=== PATIENT | female | born 1950 | race Caucasian/White ===

== ENCOUNTER 2018-10-21 17:29 | Inpatient (IN) | payer MEDICARE ==
[~2018-10-21 17:29] MED LIST: ENOXAPARIN SODIUM SQ SCH
--- NOTE | 2018-10-21 18:11 | ERPHSYRPT ---
- History of Present Illness Source: patient, EMS Exam Limitations: no limitations Patient Subjective Stated Complaint: pt here for increase sob since september, was seen recently for this and was placed on meds and is to get blood work done Triage Nursing Assessment: pt alert, resp labored, skin w/d/p. chest with rhonci and wheezes, was givne solumedrol and a resp treatment in ambulance as well as zofran Timing/Duration: other (since September) Activities at Onset: none Severity of Dyspnea-Max: severe Severity of Dyspnea-Current: severe Possible Cause: occasional episodes, smoke exposure Modifying Factors: Improves With: albuterol inhaler, albuterol nebulizer Associated Symptoms: cough, wheezing Hx Tetanus, Diphtheria Vaccination/Date Given: No Hx Influenza Vaccination/Date Given: No Hx Pneumococcal Vaccination/Date Given: No Immunizations Up to Date: Yes <BERKLEY HODGSON - Last Filed: 10/21/18 19:12> <CARLITA TOLEDO - Last Filed: 10/21/18 21:18> - History of Present Illness Time Seen by Provider: 10/21/18 18:02 Physician History: The patient is a 68-year-old female with her daughter brought in by ambulance from home where she has experienced worsening shortness of breath since September. She saw her primary medical doctor last week and was given an albuterol nebulizer machine with albuterol nebs, Medrol dosepak, and Augmentin. The patient has not taking very much of this steroid because she doesn't like the way it makes her feel. She denies fever or chills. She hasn't slept well in several nights. EMS treated her in route with Solu-Medrol and a breathing treatment plus Zofran. Her O2 saturation at home when EMS arrived was 80%. She is now feeling better breathing using O2 2 L nasal cannula. She is unsure of her past medical history and thinks she might have COPD. She has smoked for many years and continues to smoke. (BERKLEY HODGSON) Allergies/Adverse Reactions: acetaminophen [From Darvocet-N] Allergy (Intermediate, Verified 10/21/18 17:36) Rash propoxyphene napsylate [From Darvocet-N] Allergy (Intermediate, Verified 17:36) Rash Home Medications: Albuterol Sulfate Mdi [Proair Hfa MDI] 2 puff QID 10/21/18 [History] Amox Tr/Potass Clav. 875 mg [Augmentin 875-125 Tablet] 1 tab BID 10/21/18 [History] Clonazepam 0.5 mg [Klonopin 0.5 MG] 0.5 mg TID 10/21/18 [History] Ipratropium/Albuterol Sulfate [Iprat-Albut 0.5-3(2.5) mg/3 ml] 1 neb QID [History] methylPREDNISolone [Methylprednisolone] 4 mg DAILY 10/21/18 [History] - Review of Systems Constitutional: No Fever, No Chills Eyes: No Symptoms Ears, Nose, & Throat: No Symptoms Respiratory: Dyspnea, Dyspnea on Exertion (GERONIMO) Cardiac: No Chest Pain, No Edema, No Syncope Abdominal/Gastrointestinal: No Abdominal Pain, No Nausea, No Vomiting, No Diarrhea Genitourinary Symptoms: No Dysuria Musculoskeletal: No Back Pain, No Neck Pain Skin: No Rash Neurological: No Dizziness, No Focal Weakness, No Sensory Changes Psychological: No Symptoms Endocrine: No Symptoms Hematologic/Lymphatic: No Symptoms Immunological/Allergic: No Symptoms All Other Systems: Reviewed and Negative <BERKLEY HODGSON - Last Filed: 10/21/18 19:12> - Past Medical History Pertinent Past Medical History: Yes Respiratory History: COPD Other Medical History: BEING TESTED FOR RA - Past Surgical History Past Surgical History: Yes Musculoskeletal: Orthopedic Surgery Female Surgical History: Section - Social History Smoking Status: Current every day smoker How long have you smoked: YRS Exposure to second hand smoke: Yes Drug Use: none Patient Lives Alone: No - Female History Hx Last Menstrual Period: post Hx Now: No <BERKLEY HODGSON - Last Filed: 10/21/18 19:12> - Physical Exam General Appearance: mild distress, thin Eye Exam: PERRL/EOMI Ears, Nose, Throat Exam: hearing grossly normal Neck Exam: normal inspection, supple Respiratory Exam: diminished breath sounds, wheezing Cardiovascular/Chest Exam: normal heart sounds, regular rate/rhythm Abdominal/Gastrointestinal Exam: soft, No tenderness, No distention, No mass Rectal Exam: not done Extremity Exam: non-tender, normal range of motion, normal inspection, no calf tenderness, no pedal edema Neurologic Exam: alert, oriented x 3, cooperative, med specialist II-XII nml as tested, sensation nml, No motor deficits Skin Exam: normal color, warm, No dry SpO2 Interpretation: normal SpO2: 92 Oxygen Delivery: Room Air <BERKLEY HODGSON - Last Filed: 10/21/18 19:12> - Nursing Vital Signs Nursing Vital Signs: Initial Vital Signs Temperature 97.8 F 10/21/18 17:29 Pulse Rate 92 H 10/21/18 17:29 Respiratory Rate 32 H 10/21/18 17:29 Blood Pressure 136/70 10/21/18 17:29 O2 Sat by Pulse Oximetry 97 10/21/18 17:29 Pain Scale Pain Intensity 0 - Radiology Exams Chest X-ray Interpretation: Interpreted by me, Other (blurring of sulcus on lateral view. severe COPD) <BERKLEY HODGSON - Last Filed: 10/21/18 19:12> - Course Nursing assessment & vital signs reviewed: Yes EKG Interpreted by Me: RATE (86 bpm), Sinus Rhythm, Right Mccamey Deviation, Other (EKG: Sinus rhythm, 86 bpm, right axis deviation, T-wave inversions in lead 1, avl, inadequate lead 2, no old EKG for comparison) - CT Exams Chest CT Interpretation: Tele-radiologist Report (CT chest without contrast: Impression no acute findings) <CARLITA TOLEDO - Last Filed: 10/21/18 21:18> Ordered Tests: Active Orders 24 hr Category Date Time Status Analytical Sciences Director STAT Care 10/21/18 18:18 Active EKG-ER Only STAT Care 10/21/18 18:17 Active EKG-ER Only STAT Care 10/21/18 19:53 Active IV Insertion STAT Care 10/21/18 18:17 Active Oxygen-ED Only Nasal Cannula 2 lpm Care 10/21/18 18:17 Active Pulse Oximetry (ED) STAT Care 10/21/18 18:17 Active CHEST 2 VIEWS (PA AND LAT) Stat Exams 10/21/18 18:17 Taken CHEST WITHOUT CONTRAST [CT] Stat Exams 10/21/18 19:11 Taken ARTERIAL BLOOD GASES Stat Lab 10/21/18 18:40 Completed BLOOD CULTURE Stat Lab 10/21/18 18:46 Received CBC W DIFF Stat Lab 10/21/18 18:45 Completed CMP Stat Lab 10/21/18 18:45 Completed D-DIMER QUANTITATION Stat Lab 10/21/18 18:45 Completed Lactic Acid Stat Lab 10/21/18 18:40 Completed NT PRO BNP Stat Lab 10/21/18 18:45 Completed PROTIME WITH INR Stat Lab 10/21/18 18:45 Completed TROPONIN Q3H Lab 10/21/18 18:45 Completed TROPONIN Q3H Lab 10/21/18 21:30 Ordered TROPONIN Q3H Lab 10/22/18 00:30 Ordered TROPONIN Q3H Lab 10/22/18 03:30 Ordered TROPONIN Q3H Lab 10/22/18 06:30 Ordered Peak Expiratory Flow Rate DAILY RT 10/21/18 18:56 Active Respiratory Nebulizer STAT RT 10/21/18 18:19 Completed Respiratory Therapy Assessment DAILY RT 10/21/18 18:55 Active Medication Summary Discontinued Medications Generic Name Dose Route Start Last Admin Trade Name Freq PRN Reason Stop Dose Admin Albuterol/Ipratropium 3 ml 10/21/18 18:17 10/21/18 18:41 Duoneb 0.5-3 Mg/3 Ml Neb IH 10/21/18 18:18 3 ml STAT ONE Administration Albuterol/Ipratropium Confirm 10/21/18 18:25 Duoneb 0.5-3 Mg/3 Ml Neb Administered 10/21/18 18:26 Dose 3 ml IH .STK-MED ONE Aspirin 324 mg 10/21/18 20:02 10/21/18 20:10 Baby Aspirin 81 Mg Chew PO 10/21/18 20:03 324 mg STAT ONE Administration Aspirin Confirm 10/21/18 20:02 Baby Aspirin 81 Mg Chew Administered 10/21/18 20:03 Dose 324 mg .ROUTE .STK-MED ONE Aspirin Confirm 10/21/18 20:09 Baby Aspirin 81 Mg Chew Administered 10/21/18 20:10 Dose 324 mg .ROUTE .STK-MED ONE Lab/Rad Data: Laboratory Result Diagrams 10/21/18 18:45 10/21/18 18:45 Laboratory Results 10/21/18 10/21/18 10/21/18 Range/Units 18:45 18:45 18:45 WBC (4.0-10.5) K/mm3 RBC (4.1-5.4) M/mm3 Hgb (12.0-16.0) gm/dl Hct (35-47) % MCV (78-100) fl MCH (26-32) pg MCHC (32-36) g/dl RDW (11.5-14.0) % Plt Count (150-450) K/mm3 MPV (6-9.5) fl Gran % (36.0-66.0) % Eos # (Auto) (0-0.5) Absolute Lymphs (auto) (1.0-4.6) Absolute Monos (auto) (0.0-1.3) Lymphocytes % (24.0-44.0) % Monocytes % (0.0-12.0) % Eosinophils % (0.00-5.0) % Basophils % (0.0-0.4) % Absolute Granulocytes (1.4-6.9) Basophils # (0-0.4) PT 13.3 H (9.95-12.35) SECONDS INR 1.14 (0.8-3.0) D-Dimer 250 (215-500) ng/mL Puncture Site pCO2 (35-45) mmHg pO2 (75-100) mmHg Base Excess (-2.0-2.0) O2 Saturation (94-100) g/dF ABG pH (7.35-7.45) ABG HCO3 (22-28) ABG O2 Sat (Measured) (95-100) % Sukumar Test A-a Gradient a/A Ratio Hemoglobin Carboxyhemoglobin (0.0-6.9) % THgb Methemoglobin (1.4-1.5) % Potassium (3.5-5.1) Temperature C POC O2 Flow Rate % Sodium (137-145) mmol/L Chloride (98-107) mmol/L Carbon Dioxide (22-30) mmol/L Anion Gap (5-15) MEQ/L BUN (7-17) mg/dL Creatinine (0.52-1.04) mg/dL Estimated GFR ML/MIN Glucose (74-106) mg/dL Lactic Acid (0.4-2.0) Calcium (8.4-10.2) mg/dL Total Bilirubin (0.2-1.3) mg/dL AST (14-36) U/L ALT (0-35) U/L Alkaline Phosphatase (38-126) U/L Troponin I 0.039 H* (0.000-0.034) ng/mL NT-Pro-B Natriuret Pep (0-900) pg/mL Serum Total Protein (6.3-8.2) g/dL Albumin (3.5-5.0) g/dL Influenza Type A Ag NEGATIVE (NEGATIVE) Influenza Type B Ag NEGATIVE (NEGATIVE) RSV (PCR) NEGATIVE (Negative) 10/21/18 10/21/18 10/21/18 Range/Units 18:45 18:45 18:40 WBC 6.0 (4.0-10.5) K/mm3 RBC 3.78 L (4.1-5.4) M/mm3 Hgb 12.8 (12.0-16.0) gm/dl Hct 38.7 (35-47) % MCV 102.4 H (78-100) fl MCH 33.8 H (26-32) pg MCHC 33.1 (32-36) g/dl RDW 11.9 (11.5-14.0) % Plt Count 207 (150-450) K/mm3 MPV 9.2 (6-9.5) fl Gran % 90.0 H (36.0-66.0) % Eos # (Auto) 0.01 (0-0.5) Absolute Lymphs (auto) 0.40 L (1.0-4.6) Absolute Monos (auto) 0.19 (0.0-1.3) Lymphocytes % 6.6 L (24.0-44.0) % Monocytes % 3.2 (0.0-12.0) % Eosinophils % 0.2 (0.00-5.0) % Basophils % 0.0 (0.0-0.4) % Absolute Granulocytes 5.43 (1.4-6.9) Basophils # 0 (0-0.4) PT (9.95-12.35) SECONDS INR (0.8-3.0) D-Dimer (215-500) ng/mL Puncture Site RIGHT BRACHIAL pCO2 52 H (35-45) mmHg pO2 94 (75-100) mmHg Base Excess 2.9 H (-2.0-2.0) O2 Saturation 93.0 L (94-100) g/dF ABG pH 7.36 (7.35-7.45) ABG HCO3 29.4 H* (22-28) ABG O2 Sat (Measured) 98.7 (95-100) % Sukumar Test NOT APPLICABLE A-a Gradient 41 a/A Ratio 0.70 Hemoglobin 13.4 Carboxyhemoglobin 4.3 (0.0-6.9) % THgb Methemoglobin 1.5 (1.4-1.5) % Potassium 3.6 3.5 (3.5-5.1) Temperature 37.0 C POC O2 Flow Rate 28 % Sodium 127 L (137-145) mmol/L Chloride 87 L (98-107) mmol/L Carbon Dioxide 32 H (22-30) mmol/L Anion Gap 12.5 (5-15) MEQ/L BUN 13 (7-17) mg/dL Creatinine 0.30 L (0.52-1.04) mg/dL Estimated GFR > 60.0 ML/MIN Glucose 120 H (74-106) mg/dL Lactic Acid 1.3 (0.4-2.0) Calcium 8.6 (8.4-10.2) mg/dL Total Bilirubin 0.50 (0.2-1.3) mg/dL AST 74 H (14-36) U/L ALT 60 H (0-35) U/L Alkaline Phosphatase 81 (38-126) U/L Troponin I (0.000-0.034) ng/mL NT-Pro-B Natriuret Pep 166 (0-900) pg/mL Serum Total Protein 7.1 (6.3-8.2) g/dL Albumin 4.4 (3.5-5.0) g/dL Influenza Type A Ag (NEGATIVE) Influenza Type B Ag (NEGATIVE) RSV (PCR) (Negative) <BERKLEY HODGSON - Last Filed: 10/21/18 19:12> - Progress Air Movement: fair <CARLITA TOLEDO - Last Filed: 10/21/18 21:18> - Progress Progress Note: 10/21/18 19:12 pt care discussed and care transferred to Dr Toledo at 19:00. (BERKLEY HODGSON) 10/21/18 20:02 This is a 68-year-old white female with history of COPD who is being tested for rheumatoid arthritis. She is initially seen by Dr. Hodgson. Patient with complaint of shortness of breath since September she has no fevers she is not having any chest pain. Patient does have a history of tobacco use. Past medical history includes COPD, being tested for rheumatoid arthritis Past surgical history includes orthopedic surgery and Social history positive for tobacco Physical examination vitals temperature 90.7 a pulse 92 respirations 32 blood pressure 136/70 sats 97% Head atraumatic normocephalic eyes PERRLA EOMI fundi unremarkable ears TMs ye intact bilaterally nose is clear throat is clear. Lungs diminished breath sounds bilaterally. Heart regular rate and rhythm without murmur. Abdomen soft nontender nondistended positive bowel sounds. Extremities full range of motion pulse equal symmetrical 2 over 4. Neuro cranial nerves II through XII are intact DTRs symmetrical 2 over 4 [place] Coma Scale is 15. Chest x-ray hyperinflation no acute infiltrates EKG patient with T wave inversion in lead 1 and aVL questionable reliability of lead 2 Sinus rhythm 86 bpm right axis deviation T wave inversions 1 in aVL as noted above. No old EKG for comparison. Labs CBC white blood cell 6.0 hemoglobin 12.8 hematocrit 38.7 platelets 207 D-dimer 250 ABGs pH 7.36 PCO2 52 PO2 94 bicarbonate 29 O2 sats 98 Chemistry sodium 127 potassium 3.6 chloride 87 bicarbonate 32 BUN 13 creatinine 0.3 glucose 120 Lactate 1.3 Troponin elevated at 0.039 BNP 166 Patient has already received Solu-Medrol en route patient has had DuoNeb treatment and Zofran prior to arrival Dr. Hodgson has ordered CT of the patient's chest. Will go ahead and order aspirin 324 mg orally in view of elevated troponin. Will repeat patient's EKG. Await CT results patient does not have chest pain 10/21/18 20:08 Repeat EKG time October 21, 2018 at 2003 Sinus rhythm 81 bpm T wave inversion in lead aVL No acute ST or T wave changes noted, normal axis. 10/21/18 21:14 CT chest no acute changes I've discussed patient' case with Dr Lewis, Will place patient on observation, telemetry, Will continue IV Solumedroland DuoNeb treatments Will continue serial troponins. (CARLITA TOLEDO) <BERKLEY HODGSON - Last Filed: 10/21/18 19:12> - Departure Time of Disposition: 21:17 Departure Disposition: Observation Critical Care Time: No <CARLITA TOLEDO - Last Filed: 10/21/18 21:18> - Departure Clinical Impression: Shortness of breath, increased troponin COPD (chronic obstructive pulmonary disease) Qualifiers: COPD type: unspecified COPD Qualified Code(s): J44.9 - Chronic obstructive pulmonary disease, unspecified Condition: Fair Referrals: HELDER LEWIS [Primary Care Provider] - Instructions: Chronic Obstructive Pulmonary Disease
[2018-10-21] MEDS ORDERED: DUONEB 0.5-3 MG/3 ml Neb IH ONE ×2 (18:17→18:25)
[2018-10-21 18:47] LABS: A-aADO2 41; ABG HEMOGLOBIN 13.4; ABG POTASSIUM 3.5 (3.5-5.1); ABG SITE RIGHT BRACHIAL; ARTERIAL BLD GAS O2 SATURATION 98.7 % (95-100); ARTERIAL BLOOD GAS BASE EXCESS 2.9 (-2.0-2.0); ARTERIAL BLOOD GAS FIO2 28 %; ARTERIAL BLOOD GAS PCO2 52 mmHg (35-45); ARTERIAL BLOOD GAS PO2 94 mmHg (75-100); ARTERIAL BLOOD GAS pH 7.36 (7.35-7.45); CARBOXYHEMOGLOBIN 4.3 % THgb (0.0-6.9); HCO3- 29.4 (22-28); Lactic Acid 1.3 (0.4-2.0); Methhemoglobin 1.5 % (1.4-1.5)
[2018-10-21 18:49] LABS: Basophil (Absolute #) 0 (0-0.4); Eosinophil % 0.2 % (0.00-5.0); Eosinophil (Absolute #) 0.01 (0-0.5); Hematocrit 38.7 % (35-47); Hemoglobin 12.8 gm/dl (12.0-16.0); Lymphocytes % 6.6 % (24.0-44.0); Mean Cell Volume 102.4 fl (78-100); Mean Corpuscular Hemoglobin 33.8 pg (26-32); Mean Corpuscular Hgb Concent. 33.1 g/dl (32-36); Mean Platelet Volume 9.2 fl (6-9.5); Monocyte (Absolute #) 0.19 (0.0-1.3); Monocytes % 3.2 % (0.0-12.0); Platelet Count 207 K/mm3 (150-450); Red Blood Count 3.78 M/mm3 (4.1-5.4); Red Cell Distribution Width 11.9 % (11.5-14.0)
[2018-10-21 19:07] LABS: INR 1.14 (0.8-3.0); PROTIME 13.3 SECONDS (9.95-12.35)
[2018-10-21 19:09] LABS: ALBUMIN 4.4 g/dL (3.5-5.0); ALKALINE PHOSPHATASE 81 U/L (38-126); ANION GAP 12.5 MEQ/L (5-15); BLOOD UREA NITROGEN 13 mg/dL (7-17); CHLORIDE 87 mmol/L (98-107); Calcium 8.6 mg/dL (8.4-10.2); Carbon Dioxide 32 mmol/L (22-30); Glucose 120 mg/dL (74-106); NT PRO BNP 166 pg/mL (0-900); Potassium 3.6 mmol/L (3.5-5.1); SGOT/AST 74 U/L (14-36); SGPT/ALT 60 U/L (0-35); SODIUM 127 mmol/L (137-145); Total Protein 7.1 g/dL (6.3-8.2)
[2018-10-21 19:23] LABS: INFLUENZA A NEGATIVE (NEGATIVE); INFLUENZA B NEGATIVE (NEGATIVE); RESPIRATORY SYNCTIAL VIRUS NEGATIVE (Negative)
[2018-10-21] MEDS ORDERED: BABY ASPIRIN 81 MG CHEW PO ONE (20:02)
[2018-10-21] MEDS ORDERED: BABY ASPIRIN 81 MG CHEW ONE ×2 (20:02→20:09)
[2018-10-21] MEDS ORDERED: ROCEPHIN 1 Gm-D5w 50 ml Bag** 1 G/50 ML IVPB IV STA (21:18)
[2018-10-21] MEDS ORDERED: ROCEPHIN 1 Gm-D5w 50 ml Bag** 1 G/50 ML IVPB IV ONE (21:21)
[2018-10-21] MEDS ORDERED: DUONEB 0.5-3 MG/3 ml Neb IH PRN (21:55)
[2018-10-21] MEDS ORDERED: Ecotrin 325 MG PO SCH (22:00)
[2018-10-21] MEDS: Sodium Chloride 0.9% 1000 ML 1,000 ML IV SCH (23:04)
[2018-10-21] MEDS: solu-MEDROL 125 MG IV SCH (23:05)
[2018-10-21] MEDS ORDERED: Xopenex 1.25 MG/0.5 ML UD NEBULE IH PRN (23:35)
[2018-10-21] MEDS ORDERED: Sodium Chloride 3 ML UD NEBULES IH PRN (23:43)
[2018-10-21] MEDS ORDERED: Nicoderm CQ 21 MG TOP SCH (23:45)
[2018-10-21] MEDS ORDERED: Klonopin 0.5 MG PO PRN (23:53)
[2018-10-22] MEDS ORDERED: ENOXAPARIN SODIUM SQ ONE (00:47)
[2018-10-22] MEDS: TYLENOL 325 MG PO PRN ×2 (00:52→10:14)
[2018-10-22 05:38] LABS: Basophil (Absolute #) 0 (0-0.4); Eosinophil (Absolute #) 0 (0-0.5); Granulocytes % 88.3 % (36.0-66.0); Hematocrit 37.3 % (35-47); Hemoglobin 12.1 gm/dl (12.0-16.0); Lymphocyte (Absolute #) 0.32 (1.0-4.6); Lymphocytes % 9.4 % (24.0-44.0); Mean Cell Volume 102.8 fl (78-100); Mean Corpuscular Hemoglobin 33.3 pg (26-32); Mean Corpuscular Hgb Concent. 32.4 g/dl (32-36); Mean Platelet Volume 9.2 fl (6-9.5); Monocyte (Absolute #) 0.08 (0.0-1.3); Monocytes % 2.3 % (0.0-12.0); Platelet Count 219 K/mm3 (150-450); Red Blood Count 3.63 M/mm3 (4.1-5.4); White Blood Count 3.4 K/mm3 (4.0-10.5)
[2018-10-22] MEDS: solu-MEDROL 125 MG IV SCH (05:42)
[2018-10-22 05:58] LABS: ALBUMIN 3.6 g/dL (3.5-5.0); ALKALINE PHOSPHATASE 68 U/L (38-126); ANION GAP 9.5 MEQ/L (5-15); BLOOD UREA NITROGEN 11 mg/dL (7-17); CHLORIDE 98 mmol/L (98-107); Calcium 8.7 mg/dL (8.4-10.2); Carbon Dioxide 32 mmol/L (22-30); Creatinine 1 0.31 mg/dL (0.52-1.04); Glucose 131 mg/dL (74-106); Potassium 4.4 mmol/L (3.5-5.1); SGOT/AST 60 U/L (14-36); SGPT/ALT 60 U/L (0-35); SODIUM 135 mmol/L (137-145); Total Protein 5.9 g/dL (6.3-8.2)
[2018-10-22 07:17] LABS: Slide Review 1 YES
--- NOTE | 2018-10-22 08:40 | XRAY ---
Indication: Cough and short of breath one month. Multiple contiguous axial images obtained through the chest without contrast as ordered. Comparison: None Lungs hyperinflated with moderate pulmonary emphysema. Right apical and lesser degree bibasilar pleural parenchymal fibrosis/scarring. No suspicious pulmonary mass, infiltrate, or effusion. Heart is not enlarged. Aorta mildly arteriosclerotic without aneurysmal dilatation. Mediastinal and bilateral hilar calcified nodes. No pathologic mediastinal lymphadenopathy. Bony thorax intact. Limited upper abdomen unremarkable. Impression: 1. Pulmonary emphysema with scattered fibrosis/scarring and evidence for old granulomatous disease. 2. Remaining CT chest without contrast exam is negative. Comment: Preliminary interpretation was made by [facility]. No discrepancy. CTDI 6.06
--- NOTE | 2018-10-22 08:40 | XRAY ---
Indication: Short of breath. Comparison: None PA/lateral chest demonstrates COPD and right hilar calcified nodes. No focal infiltrate, consolidation, or large effusion. Heart is not enlarged. Bony thorax intact with mild osteopenia. Impression: Nonacute chest with COPD and evidence for old granulomatous disease.
[2018-10-22] MEDS ORDERED: Zithromax 500 MG/ 250 ML NaCl Premix 500 MG/250 ML IVPB IV SCH ×2 (10:00→22:00)
[2018-10-22] MEDS ORDERED: NON-FORMULARY ITEM (Albuterol Sulfate Mdi*** 2 PUFF) IH SCH (10:00)
[2018-10-22] MEDS ORDERED: Mucinex 600MG ER Tabs PO SCH (10:00)
[2018-10-22] MEDS: Sodium Chloride 0.9% 1000 ML 1,000 ML IV SCH (10:01)
[2018-10-22] MEDS: Klonopin 0.5 MG PO SCH ×2 (10:01→16:14)
[2018-10-22] MEDS: ENOXAPARIN SODIUM SQ SCH ×2 (10:01→10:10)
[2018-10-22] MEDS: PROVENTIL COMMON CANISTER IH SCH ×2 (10:46→15:30)
[2018-10-22] MEDS ORDERED: solu-MEDROL 125 MG IV SCH (12:00)
--- NOTE | 2018-10-22 13:15 | PCM.HP ---
History of Present Illness - Chief Complaint Chief Complaint: HYPOXIA, DYSPNEA, EXAC COPD, FAILED OUTPATIENT History of Present Illness: is a 68 year old female.patient here for increase sob since September , was seen recently for this and was placed on meds and is to get blood work done - Review of Systems Constitutional: No Fever, No Chills Eyes: No Symptoms Ears, Nose, & Throat: No Symptoms Respiratory: Cough, Orthopnea, Short Of Breath, Wheezing Cardiac: No Chest Pain, No Edema, No Syncope Abdominal/Gastrointestinal: No Abdominal Pain, No Nausea, No Vomiting, No Diarrhea Genitourinary Symptoms: No Dysuria Musculoskeletal: No Back Pain, No Neck Pain Skin: No Rash Neurological: No Dizziness, No Focal Weakness, No Sensory Changes Psychological: No Symptoms Endocrine: No Symptoms Hematologic/Lymphatic: No Symptoms Immunological/Allergic: No Symptoms Medications & Allergies Home Medications: Home Medication List Albuterol Sulfate Mdi [Proair Hfa MDI] 2 puff QID 10/21/18 [History Confirmed 10/21/18] Amox Tr/Potass Clav. 875 mg [Augmentin 875-125 Tablet] 1 tab BID 10/21/18 [History Confirmed 10/21/18] Clonazepam 0.5 mg [Klonopin 0.5 MG] 0.5 mg TID 10/21/18 [History Confirmed 10/21/18] Ipratropium/Albuterol Sulfate [Iprat-Albut 0.5-3(2.5) mg/3 ml] 1 neb QID [History Confirmed 10/21/18] methylPREDNISolone [Methylprednisolone] 4 mg DAILY 10/21/18 [History Confirmed 10/21/18] Allergies/Adverse Reactions: Allergies Allergy/AdvReac Type Severity Reaction Status Date / Time acetaminophen Allergy Intermediate Rash Verified 10/21/18 17:36 [From Darvocet-N] propoxyphene napsylate Allergy Intermediate Rash Verified 10/21/18 17:36 [From Darvocet-N] - Past Medical History Past Medical History: Yes Neurological History: No Pertinent History ENT History: No Pertinent History Cardiac History: No Pertinent History Respiratory History: COPD Endocrine Medical History: No Pertinent History Musculoskelatal History: No Pertinent History GI Medical History: No Pertinent History History: No Pertinent History Pyscho-Social History: No Pertinent History Reproductive Disorders: No Pertinent History Comment: BEING TESTED FOR RA - Female History Hx Last Menstrual Period: post Are you now?: No - Past Surgical History Past Surgical History: Yes Neuro Surgical History: No Pertinent History Cardiac History: No Pertinent History Respiratory Surgery: No Pertinent History GI Surgical History: No Pertinent History Genitourinary Surgical Hx: No Pertinent History Musculskeletal Surgical Hx: Orthopedic Surgery Female Surgical History: Section Other Surgical History: rt arm - Social History Smoking Status: Current every day smoker How long have you smoked: YRS Exposure to second hand smoke: Yes Alcohol: None Drug Use: none - Physical Exam Vital Signs: Vital Signs - 24 hr Temp Pulse Resp BP Pulse Ox 10/22/18 11:57 98.2 F 86 18 118/65 95 10/22/18 10:54 84 18 94 L 10/22/18 10:00 18 10/22/18 08:27 87 16 92 L 10/22/18 07:55 98.4 F 87 18 97/54 98 10/22/18 07:37 93 L 10/22/18 06:00 18 10/22/18 04:00 98.2 F 93 H 18 108/59 98 10/22/18 02:00 18 10/22/18 00:00 97.8 F 92 H 22 122/59 91 L 10/21/18 23:28 92 H 22 91 L 10/21/18 22:46 80 20 93 L 10/21/18 22:39 95 H 22 122/59 94 L 10/21/18 22:00 20 10/21/18 20:40 87 110/70 98 10/21/18 19:40 93 H 20 147/79 99 10/21/18 19:12 92 L 10/21/18 18:50 97 H 22 126/71 99 10/21/18 18:41 86 18 90 L 10/21/18 18:35 86 18 97/57 94 L 10/21/18 18:26 98 10/21/18 17:30 32 H 92 L 10/21/18 17:29 97.8 F 92 H 32 H 136/70 97 Oxygen-Last 24 hours O2 Percentage 2 Liters = 28% O2 Percentage 2 Liters = 28% O2 Percentage 2 Liters = 28% O2 Percentage 2 Liters = 28% O2 Percentage 2 Liters = 28% O2 Percentage 2 Liters = 28% General Appearance: no apparent distress, alert Neurologic Exam: alert, oriented x 3, cooperative, normal mood/affect, nml cerebellar function, nml station & gait, sensation nml, No motor deficits Eye Exam: PERRL/EOMI, eyes nml inspection Ears, Nose, Throat Exam: normal ENT inspection, TMs normal, pharynx normal, moist mucous membranes Neck Exam: normal inspection, non-tender, supple, full range of motion Respiratory Exam: normal breath sounds, lungs clear, No respiratory distress Cardiovascular Exam: regular rate/rhythm, normal heart sounds, normal peripheral pulses Gastrointestinal/Abdomen Exam: soft, normal bowel sounds, No tenderness, No mass Back Exam: normal inspection, normal range of motion, No CVA tenderness, No vertebral tenderness Extremity Exam: normal inspection, normal range of motion, pelvis stable Skin Exam: normal color, warm, dry, No rash Lymphatic Exam: No adenopathy Results - Labs Lab/Micro Results: Lab Results-Last 24 Hours 10/21/18 10/21/18 10/21/18 Range/Units 18:40 18:45 18:45 WBC 6.0 (4.0-10.5) K/mm3 RBC 3.78 L (4.1-5.4) M/mm3 Hgb 12.8 (12.0-16.0) gm/dl Hct 38.7 (35-47) % MCV 102.4 H (78-100) fl MCH 33.8 H (26-32) pg MCHC 33.1 (32-36) g/dl RDW 11.9 (11.5-14.0) % Plt Count 207 (150-450) K/mm3 MPV 9.2 (6-9.5) fl Gran % 90.0 H (36.0-66.0) % Eos # (Auto) 0.01 (0-0.5) Absolute Lymphs (auto) 0.40 L (1.0-4.6) Absolute Monos (auto) 0.19 (0.0-1.3) Lymphocytes % 6.6 L (24.0-44.0) % Monocytes % 3.2 (0.0-12.0) % Eosinophils % 0.2 (0.00-5.0) % Basophils % 0.0 (0.0-0.4) % Absolute Granulocytes 5.43 (1.4-6.9) Basophils # 0 (0-0.4) PT (9.95-12.35) SECONDS INR (0.8-3.0) D-Dimer (215-500) ng/mL Puncture Site RIGHT BRACHIAL pCO2 52 H (35-45) mmHg pO2 94 (75-100) mmHg Base Excess 2.9 H (-2.0-2.0) O2 Saturation 93.0 L (94-100) g/dF ABG pH 7.36 (7.35-7.45) ABG HCO3 29.4 H* (22-28) ABG O2 Sat (Measured) 98.7 (95-100) % Sukumar Test NOT APPLICABLE A-a Gradient 41 a/A Ratio 0.70 Hemoglobin 13.4 Carboxyhemoglobin 4.3 (0.0-6.9) % THgb Methemoglobin 1.5 (1.4-1.5) % Potassium 3.5 3.6 (3.5-5.1) Temperature 37.0 C POC O2 Flow Rate 28 % Sodium 127 L (137-145) mmol/L Chloride 87 L (98-107) mmol/L Carbon Dioxide 32 H (22-30) mmol/L Anion Gap 12.5 (5-15) MEQ/L BUN 13 (7-17) mg/dL Creatinine 0.30 L (0.52-1.04) mg/dL Estimated GFR > 60.0 ML/MIN Glucose 120 H (74-106) mg/dL Lactic Acid 1.3 (0.4-2.0) Calcium 8.6 (8.4-10.2) mg/dL Total Bilirubin 0.50 (0.2-1.3) mg/dL AST 74 H (14-36) U/L ALT 60 H (0-35) U/L Alkaline Phosphatase 81 (38-126) U/L Troponin I (0.000-0.034) ng/mL NT-Pro-B Natriuret Pep 166 (0-900) pg/mL Serum Total Protein 7.1 (6.3-8.2) g/dL Albumin 4.4 (3.5-5.0) g/dL Influenza Type A Ag (NEGATIVE) Influenza Type B Ag (NEGATIVE) RSV (PCR) (Negative) Slides for Path Review 10/21/18 10/21/18 10/21/18 Range/Units 18:45 18:45 18:45 WBC (4.0-10.5) K/mm3 RBC (4.1-5.4) M/mm3 Hgb (12.0-16.0) gm/dl Hct (35-47) % MCV (78-100) fl MCH (26-32) pg MCHC (32-36) g/dl RDW (11.5-14.0) % Plt Count (150-450) K/mm3 MPV (6-9.5) fl Gran % (36.0-66.0) % Eos # (Auto) (0-0.5) Absolute Lymphs (auto) (1.0-4.6) Absolute Monos (auto) (0.0-1.3) Lymphocytes % (24.0-44.0) % Monocytes % (0.0-12.0) % Eosinophils % (0.00-5.0) % Basophils % (0.0-0.4) % Absolute Granulocytes (1.4-6.9) Basophils # (0-0.4) PT 13.3 H (9.95-12.35) SECONDS INR 1.14 (0.8-3.0) D-Dimer 250 (215-500) ng/mL Puncture Site pCO2 (35-45) mmHg pO2 (75-100) mmHg Base Excess (-2.0-2.0) O2 Saturation (94-100) g/dF ABG pH (7.35-7.45) ABG HCO3 (22-28) ABG O2 Sat (Measured) (95-100) % Sukumar Test A-a Gradient a/A Ratio Hemoglobin Carboxyhemoglobin (0.0-6.9) % THgb Methemoglobin (1.4-1.5) % Potassium (3.5-5.1) Temperature C POC O2 Flow Rate % Sodium (137-145) mmol/L Chloride (98-107) mmol/L Carbon Dioxide (22-30) mmol/L Anion Gap (5-15) MEQ/L BUN (7-17) mg/dL Creatinine (0.52-1.04) mg/dL Estimated GFR ML/MIN Glucose (74-106) mg/dL Lactic Acid (0.4-2.0) Calcium (8.4-10.2) mg/dL Total Bilirubin (0.2-1.3) mg/dL AST (14-36) U/L ALT (0-35) U/L Alkaline Phosphatase (38-126) U/L Troponin I 0.039 H* (0.000-0.034) ng/mL NT-Pro-B Natriuret Pep (0-900) pg/mL Serum Total Protein (6.3-8.2) g/dL Albumin (3.5-5.0) g/dL Influenza Type A Ag NEGATIVE (NEGATIVE) Influenza Type B Ag NEGATIVE (NEGATIVE) RSV (PCR) NEGATIVE (Negative) Slides for Path Review 10/21/18 10/22/18 10/22/18 Range/Units 21:39 01:33 05:17 WBC (4.0-10.5) K/mm3 RBC (4.1-5.4) M/mm3 Hgb (12.0-16.0) gm/dl Hct (35-47) % MCV (78-100) fl MCH (26-32) pg MCHC (32-36) g/dl RDW (11.5-14.0) % Plt Count (150-450) K/mm3 MPV (6-9.5) fl Gran % (36.0-66.0) % Eos # (Auto) (0-0.5) Absolute Lymphs (auto) (1.0-4.6) Absolute Monos (auto) (0.0-1.3) Lymphocytes % (24.0-44.0) % Monocytes % (0.0-12.0) % Eosinophils % (0.00-5.0) % Basophils % (0.0-0.4) % Absolute Granulocytes (1.4-6.9) Basophils # (0-0.4) PT (9.95-12.35) SECONDS INR (0.8-3.0) D-Dimer (215-500) ng/mL Puncture Site pCO2 (35-45) mmHg pO2 (75-100) mmHg Base Excess (-2.0-2.0) O2 Saturation (94-100) g/dF ABG pH (7.35-7.45) ABG HCO3 (22-28) ABG O2 Sat (Measured) (95-100) % Sukumar Test A-a Gradient a/A Ratio Hemoglobin Carboxyhemoglobin (0.0-6.9) % THgb Methemoglobin (1.4-1.5) % Potassium (3.5-5.1) Temperature C POC O2 Flow Rate % Sodium (137-145) mmol/L Chloride (98-107) mmol/L Carbon Dioxide (22-30) mmol/L Anion Gap (5-15) MEQ/L BUN (7-17) mg/dL Creatinine (0.52-1.04) mg/dL Estimated GFR ML/MIN Glucose (74-106) mg/dL Lactic Acid (0.4-2.0) Calcium (8.4-10.2) mg/dL Total Bilirubin (0.2-1.3) mg/dL AST (14-36) U/L ALT (0-35) U/L Alkaline Phosphatase (38-126) U/L Troponin I 0.069 H* 0.054 H* 0.042 H* (0.000-0.034) ng/mL NT-Pro-B Natriuret Pep (0-900) pg/mL Serum Total Protein (6.3-8.2) g/dL Albumin (3.5-5.0) g/dL Influenza Type A Ag (NEGATIVE) Influenza Type B Ag (NEGATIVE) RSV (PCR) (Negative) Slides for Path Review 10/22/18 10/22/18 Range/Units 05:17 05:17 WBC 3.4 L (4.0-10.5) K/mm3 RBC 3.63 L (4.1-5.4) M/mm3 Hgb 12.1 (12.0-16.0) gm/dl Hct 37.3 (35-47) % MCV 102.8 H (78-100) fl MCH 33.3 H (26-32) pg MCHC 32.4 (32-36) g/dl RDW 12.0 (11.5-14.0) % Plt Count 219 (150-450) K/mm3 MPV 9.2 (6-9.5) fl Gran % 88.3 H (36.0-66.0) % Eos # (Auto) 0 (0-0.5) Absolute Lymphs (auto) 0.32 L (1.0-4.6) Absolute Monos (auto) 0.08 (0.0-1.3) Lymphocytes % 9.4 L (24.0-44.0) % Monocytes % 2.3 (0.0-12.0) % Eosinophils % 0.0 (0.00-5.0) % Basophils % 0.0 (0.0-0.4) % Absolute Granulocytes 3.02 (1.4-6.9) Basophils # 0 (0-0.4) PT (9.95-12.35) SECONDS INR (0.8-3.0) D-Dimer (215-500) ng/mL Puncture Site pCO2 (35-45) mmHg pO2 (75-100) mmHg Base Excess (-2.0-2.0) O2 Saturation (94-100) g/dF ABG pH (7.35-7.45) ABG HCO3 (22-28) ABG O2 Sat (Measured) (95-100) % Sukumar Test A-a Gradient a/A Ratio Hemoglobin Carboxyhemoglobin (0.0-6.9) % THgb Methemoglobin (1.4-1.5) % Potassium 4.4 D (3.5-5.1) Temperature C POC O2 Flow Rate % Sodium 135 L D (137-145) mmol/L Chloride 98 D (98-107) mmol/L Carbon Dioxide 32 H (22-30) mmol/L Anion Gap 9.5 (5-15) MEQ/L BUN 11 (7-17) mg/dL Creatinine 0.31 L (0.52-1.04) mg/dL Estimated GFR > 60.0 ML/MIN Glucose 131 H (74-106) mg/dL Lactic Acid (0.4-2.0) Calcium 8.7 (8.4-10.2) mg/dL Total Bilirubin 0.30 (0.2-1.3) mg/dL AST 60 H (14-36) U/L ALT 60 H (0-35) U/L Alkaline Phosphatase 68 (38-126) U/L Troponin I (0.000-0.034) ng/mL NT-Pro-B Natriuret Pep (0-900) pg/mL Serum Total Protein 5.9 L (6.3-8.2) g/dL Albumin 3.6 (3.5-5.0) g/dL Influenza Type A Ag (NEGATIVE) Influenza Type B Ag (NEGATIVE) RSV (PCR) (Negative) Slides for Path Review YES - Radiology Impressions Radiology Exams & Impressions: Radiology Procedures Category Date Time Status CHEST 2 VIEWS (PA AND LAT) Stat Exams 10/21/18 18:17 Completed CHEST WITHOUT CONTRAST [CT] Stat Exams 10/21/18 19:11 Completed ECHO W/2D AND DOPPLER [US] Routine Exams 10/22/18 10:10 Taken - Other Procedures and Tests Respiratory Therapy 10/21/18 18:55 Respiratory Therapy Assessment DAILY 10/21/18 18:56 Peak Expiratory Flow Rate DAILY 10/21/18 21:55 Oxygen Nasal Cannula 2 lpm 10/22/18 11:00 Flutter Therapy QID Assessment/Plan (1) Shortness of breath Current Visit: Yes Status: Acute Onset Date: ~10/21/18 Code(s): R06.02 - SHORTNESS OF BREATH (2) COPD (chronic obstructive pulmonary disease) Current Visit: Yes Status: Acute Onset Date: ~10/21/18 Qualifiers: COPD type: unspecified COPD Qualified Code(s): J44.9 - Chronic obstructive pulmonary disease, unspecified (3) Elevated troponin Current Visit: Yes Status: Acute Onset Date: ~10/21/18 Code(s): R74.8 - ABNORMAL LEVELS OF OTHER SERUM ENZYMES (4) Tobacco abuse Current Visit: Yes Status: Acute Code(s): Z72.0 - TOBACCO USE (5) Tobacco abuse counseling Current Visit: Yes Status: Acute Code(s): Z71.6 - TOBACCO ABUSE COUNSELING
[2018-10-22 16:34] VITALS: BP 115/58; PULSE 84; O2SAT 96
[2018-10-22] MEDS ORDERED: ROCEPHIN 1 Gm-D5w 50 ml Bag** 1 G/50 ML IVPB IV SCH (22:00)
[2018-10-22] MEDS ORDERED: solu-MEDROL 40 MG IV SCH (22:00)
--- NOTE | 2018-11-01 11:44 | PFT ---
DATE OF STUDY: 10/21/2018 IMPRESSION: 1) Spirometry shows very severe obstructive pattern. FEV1 is 20% predicted. 2) A post-bronchodilator spirometry does not show statistically significant improvement in FEV1 or FVC this however, should not preclude use of these medications if clinically indicated. 3) Maximum voluntary ventilation is severely reduced. 4) Lung volumes show air trapping and hyperinflation. 5) Diffusion capacity is moderately reduced and does not normalize when corrected for alveolar volume. 6) Flow volume loop shows obstructive pattern.
== END 2018-10-22 18:30 | disposition home or self-care (01) | DRG 192 ==
LOC: ED 17:29 → MED SURG 21:47 → OBSVTOIN 23:28
PROVIDERS: ADMIT General Practice; ATTEND General Practice
DX: J44.1 Chronic obstructive pulmonary disease with (acute) exacerbation (principal); R74.8 Abnormal levels of other serum enzymes; Z72.0 Tobacco use; Z71.6 Tobacco abuse counseling; R09.02 Hypoxemia; Z79.899 Other long term (current) drug therapy
CPT/HCPCS: 36000; 36415; 36600; 71046; 71250; 80053; 82375; 82803; 83605; 83880; 84484; 85025; 85379; 85610; 87040; 87631; 93005; 93041; 93306; 94060; 94150; 94640; 94667; 94726; 94729; 94760; 96365; 99285; J0456; J0696; J1650; J2930; A9270-GY

== ENCOUNTER 2018-10-24 07:05 | Emergency (ER) | payer MEDICARE ==
[2018-10-24] MEDS ORDERED: Sodium Chloride 0.9% 1000 ML 1,000 ML IV STA (07:24)
--- NOTE | 2018-10-24 07:32 | ERPHSYRPT ---
- History of Present Illness Time Seen by Provider: 10/24/18 07:21 Source: patient Exam Limitations: no limitations Patient Subjective Stated Complaint: STATES RECENTLY DX WITH COPD AND WAS PUT ON OXYGEN AND NEB TREATMENTS AT HOME. STATES NEBS MAKE HER FEEL SHAKY, HAS BEEN DOING THEM EVERY FOUR HOURS. ALSO C/O LOWER ABD PAIN WITH SOME SLIGHT CONSTIPATION. Triage Nursing Assessment: PATIENT ARRIVES PER [facility]. SKIN W/D, COLOR PALE, RESP NONLABORED. IS ON 2L O2 FROM HOME. HAS IV, 20GA LAF PER EMS. PATIENT SITTING UP WITH HEAD DOWN MAKING MINIMAL EYE CONTACT. A/O TIMES THREE. ABD SOFT, TENDER. DENIES DIARRHEA BUT DOES STATE HAS SOME CONSTIPATION. OCCASIONAL DRY COUGH NOTED. NO TREMORS NOTED AT THIS TIME. Physician History: 68-year-old white female with history of COPD recently admitted on October 21, 2018 And treated for COPD sent home with nebulizers and oxygen apparently had been complaining of shortness of breath since September prior to this. She now states she is shaky and weak she is not nausea no vomiting she does have a loose cough she denies any chest pain she states she is not currently short of breath. Past medical history includes COPD, being tested for rheumatoid arthritis. Past surgical history includes , orthopedic surgery. Social history positive tobacco use. Timing/Duration: yesterday Severity: moderate Modifying Factors: Improves With: nothing Associated Symptoms: cough, malaise, weakness, No nausea, No vomiting, No abdominal pain, No shortness of breath, No heartburn, No diaphoresis, No chills , No chest pain, No fever, No headaches, No loss of appetite, No rash, No syncope, No seizure Allergies/Adverse Reactions: acetaminophen [From Darvocet-N] Allergy (Intermediate, Verified 10/24/18 07:17) Rash propoxyphene napsylate [From Darvocet-N] Allergy (Intermediate, Verified 17:36) Rash fexofenadine [From Elis-D] Allergy (Verified 10/24/18 07:18) pseudoephedrine [From Elis-D] Allergy (Verified 10/24/18 07:18) Home Medications: Albuterol Sulfate Mdi [Proair Hfa MDI] 2 puff IH QID 10/21/18 [History] Amox Tr/Potass Clav. 875 mg [Augmentin 875-125 Tablet] 1 tab PO BID [History] Clonazepam 0.5 mg [Klonopin 0.5 MG] 0.5 mg PO TID 10/21/18 [History] Ipratropium/Albuterol Sulfate [Iprat-Albut 0.5-3(2.5) mg/3 ml] 1 neb IH QID [History] methylPREDNISolone [Methylprednisolone] 1 mg PO DAILY 10/21/18 [History] Hx Tetanus, Diphtheria Vaccination/Date Given: No Hx Influenza Vaccination/Date Given: No Hx Pneumococcal Vaccination/Date Given: No - Review of Systems Constitutional: Malaise, Weakness, No Fever, No Chills, No Fatigue, No Lethargy , No Night Sweats, No Weight Loss Eyes: No Symptoms Ears, Nose, & Throat: No Symptoms Respiratory: Cough, Other (patient states she is not short of breath currently had been short of breath since September until hospitalized 3 days ago) Cardiac: No Chest Pain, No Edema, No Syncope Abdominal/Gastrointestinal: Constipation, No Abdominal Pain, No Nausea, No Vomiting, No Diarrhea Genitourinary Symptoms: Other (Decreased urination today) Musculoskeletal: No Back Pain, No Neck Pain Skin: No Rash Neurological: No Dizziness, No Focal Weakness, No Sensory Changes Psychological: No Symptoms Endocrine: No Symptoms All Other Systems: Reviewed and Negative - Past Medical History Pertinent Past Medical History: Yes Neurological History: No Pertinent History ENT History: No Pertinent History Cardiac History: No Pertinent History Respiratory History: COPD Endocrine Medical History: No Pertinent History Musculoskeletal History: No Pertinent History GI Medical History: No Pertinent History History: No Pertinent History Psycho-Social History: No Pertinent History Female Reproductive Disorders: No Pertinent History Other Medical History: BEING TESTED FOR RA - Past Surgical History Past Surgical History: Yes Neuro Surgical History: No Pertinent History Cardiac: No Pertinent History Respiratory: No Pertinent History Gastrointestinal: No Pertinent History Genitourinary: No Pertinent History Musculoskeletal: Orthopedic Surgery Female Surgical History: Section Other Surgical History: rt arm - Social History Smoking Status: Former smoker How long have you smoked: YRS Exposure to second hand smoke: No Drug Use: none Patient Lives Alone: No - Female History Hx Now: No - Nursing Vital Signs Nursing Vital Signs: Initial Vital Signs Temperature 97.5 F 10/24/18 07:09 Pulse Rate 79 10/24/18 07:09 Respiratory Rate 16 10/24/18 07:09 Blood Pressure 127/89 10/24/18 07:09 O2 Sat by Pulse Oximetry 98 10/24/18 07:09 Pain Scale Pain Intensity 0 - Physical Exam General Appearance: other (well-developed white female, cachectic in appearance , no acute distress) Ears, Nose, Throat Exam: normal ENT inspection, TMs normal, pharynx normal, moist mucous membranes Neck Exam: normal inspection, non-tender, supple, full range of motion Respiratory Exam: diminished breath sounds (mildly diminished breath sounds. Occasional cough) Cardiovascular Exam: regular rate/rhythm, normal heart sounds, normal peripheral pulses, capillary refill <2 sec Gastrointestinal/Abdomen Exam: soft, normal bowel sounds, No tenderness, No mass Back Exam: normal inspection, normal range of motion, No CVA tenderness, No vertebral tenderness Extremity Exam: normal inspection, normal range of motion, pelvis stable Neurologic Exam: alert, oriented x 3, cooperative, oil agent II-XII nml as tested, normal mood/affect, nml cerebellar function, nml station & gait, sensation nml, No motor deficits Skin Exam: normal color, warm, dry, No rash Lymphatic Exam: No adenopathy SpO2 Interpretation: normal (98%) SpO2: 98 Oxygen Delivery: Nasal Cannula - Course Nursing assessment & vital signs reviewed: Yes EKG Interpreted by Me: RATE (78 bpm), Sinus Rhythm, NORMAL AXIS, Other (EKG sinus rhythm, 78 bpm , normal axis, no acute ST or T wave changes compared to October 21, 2018) - Radiology Exams Chest X-ray Interpretation: Interpreted by me (copd) Ordered Tests: Active Orders 24 hr Category Date Time Status EKG-ER Only STAT Care 10/24/18 07:24 Active IV Insertion STAT Care 10/24/18 07:24 Active CHEST 1 VIEW (PORTABLE) Stat Exams 10/24/18 07:24 Completed AMYLASE Stat Lab 10/24/18 07:44 Completed BLOOD CULTURE Stat Lab 10/24/18 07:44 Received CBC W DIFF Stat Lab 10/24/18 07:44 Completed CMP Stat Lab 10/24/18 07:44 Completed CULTURE,SPUTUM Stat Lab 10/24/18 07:27 Uncollected CULTURE,URINE Stat Lab 10/24/18 08:10 Received LIPASE Stat Lab 10/24/18 07:44 Completed TROPONIN Q3H Lab 10/24/18 07:44 Completed TROPONIN Q3H Lab 10/24/18 10:30 Ordered TROPONIN Q3H Lab 10/24/18 13:30 Ordered TROPONIN Q3H Lab 10/24/18 16:30 Ordered TROPONIN Q3H Lab 10/24/18 19:30 Ordered UA W/RFX UR CULTURE Stat Lab 10/24/18 08:10 Results VENOUS BLOOD GAS Stat Lab 10/24/18 07:25 Completed Peak Expiratory Flow Rate ONCE RT 10/24/18 08:23 Active Respiratory Therapy Assessment DAILY RT 10/24/18 08:23 Active Transfer Order Routine Transfer 10/24/18 Ordered Medication Summary Discontinued Medications Generic Name Dose Route Start Last Admin Trade Name Freq PRN Reason Stop Dose Admin Albuterol/Ipratropium 3 ml 10/24/18 08:19 Duoneb 0.5-3 Mg/3 Ml Neb IH 10/24/18 08:20 STAT ONE Albuterol/Ipratropium Confirm 10/24/18 08:26 Duoneb 0.5-3 Mg/3 Ml Neb Administered 10/24/18 08:27 Dose 3 ml IH .STK-MED ONE Aspirin 324 mg 10/24/18 09:03 10/24/18 09:12 Baby Aspirin 81 Mg Chew PO 10/24/18 09:04 324 mg STAT ONE Administration Aspirin Confirm 10/24/18 09:07 Baby Aspirin 81 Mg Chew Administered 10/24/18 09:08 Dose 324 mg .ROUTE .STK-MED ONE Sodium Chloride 1,000 mls @ 999 mls/hr 10/24/18 07:24 10/24/18 09:12 Sodium Chloride 0.9% 1000 Ml IV 10/24/18 08:24 Infused .Q1H1M STA Infusion Sodium Chloride Confirm 10/24/18 07:49 Sodium Chloride 0.9% 1000 Ml Administered 10/24/18 07:50 Dose 1,000 mls @ ud .ROUTE .STK-MED ONE Levalbuterol HCl Confirm 10/24/18 08:30 Xopenex 1.25 Mg/0.5 Ml Ud Nebule Administered 10/24/18 08:31 Dose 1.25 mg IH .STK-MED ONE Levalbuterol HCl 1.25 mg 10/24/18 08:31 10/24/18 08:35 Xopenex 1.25 Mg/0.5 Ml Ud Nebule IH 10/24/18 08:32 1.25 mg STAT ONE Administration Methylprednisolone Sodium Succinate 125 mg 10/24/18 09:05 10/24/18 09:12 Solu-Medrol 125 Mg IV 10/24/18 09:06 125 mg STAT ONE Administration Methylprednisolone Sodium Succinate Confirm 10/24/18 09:07 Solu-Medrol 125 Mg Administered 10/24/18 09:08 Dose 125 mg .ROUTE .STK-MED ONE Sodium Chloride Confirm 10/24/18 08:31 Sodium Chloride 3 Ml Ud Nebules Administered 10/24/18 08:32 Dose 3 ml IH .STK-MED ONE Lab/Rad Data: Laboratory Result Diagrams 10/24/18 07:44 10/24/18 07:44 Laboratory Results 10/24/18 10/24/18 10/24/18 Range/Units 08:10 07:44 07:44 WBC (4.0-10.5) K/mm3 RBC (4.1-5.4) M/mm3 Hgb (12.0-16.0) gm/dl Hct (35-47) % MCV (78-100) fl MCH (26-32) pg MCHC (32-36) g/dl RDW (11.5-14.0) % Plt Count (150-450) K/mm3 MPV (6-9.5) fl Gran % (36.0-66.0) % Eos # (Auto) (0-0.5) Absolute Lymphs (auto) (1.0-4.6) Absolute Monos (auto) (0.0-1.3) Lymphocytes % (24.0-44.0) % Monocytes % (0.0-12.0) % Eosinophils % (0.00-5.0) % Basophils % (0.0-0.4) % Absolute Granulocytes (1.4-6.9) Basophils # (0-0.4) pO2/FiO2 Ratio % VBG pH (7.32-7.42) VBG pCO2 at Pat Temp (42-55) mm/Hg VBG pO2 at Pat Temp (25-40) mm/Hg VBG HCO3 (22-28) meq/L VBG O2 Sat (Bryon) (95-100) VBG Base Excess (-2.0-2.0) VBG Hemoglobin VBG Carboxyhemoglobin (0.0-6.9) % T HGB POC Potassium (3.5-5.1) Sodium 119 L* (137-145) mmol/L Potassium 3.6 (3.5-5.1) mmol/L Chloride 76 L (98-107) mmol/L Carbon Dioxide 31 H (22-30) mmol/L Anion Gap 15.1 H (5-15) MEQ/L BUN 12 (7-17) mg/dL Creatinine 0.25 L (0.52-1.04) mg/dL Estimated GFR > 60.0 ML/MIN Glucose 130 H (74-106) mg/dL Calcium 8.6 (8.4-10.2) mg/dL Total Bilirubin 0.80 (0.2-1.3) mg/dL AST 63 H (14-36) U/L ALT 78 H (0-35) U/L Alkaline Phosphatase 79 (38-126) U/L Troponin I 0.070 H* (0.000-0.034) ng/mL Serum Total Protein 7.3 (6.3-8.2) g/dL Albumin 4.6 (3.5-5.0) g/dL Amylase 48 (30-110) U/L Lipase 26 (23-300) U/L Urine Color YELLOW (YELLOW) Urine Appearance CLOUDY (CLEAR) Urine pH 8.0 (5-6) Ur Specific Alpha 1.014 (1.005-1.025) Urine Protein 30 (Negative) Urine Ketones MODERATE (NEGATIVE) Urine Blood SMALL (0-5) Manny/ul Urine Nitrite NEGATIVE (NEGATIVE) Urine Bilirubin NEGATIVE (NEGATIVE) Urine Urobilinogen NEGATIVE (0-1) mg/dL Ur Leukocyte Esterase NEGATIVE (NEGATIVE) Urine WBC (Auto) Pending Urine RBC (Auto) 3-5 (0-2) /HPF U Epithel Cells (Auto) FEW (FEW) /HPF Urine Bacteria (Auto) MODERATE (NEGATIVE) /HPF Amorphous Crystals MODERATE (NEGATIVE) /HPF Urine Mucus (Auto) SLIGHT (NEGATIVE) /HPF Urine Culture Reflexed YES (NO) Urine Glucose 50 (NEGATIVE) mg/dL Influenza Type A Ag (NEGATIVE) Influenza Type B Ag (NEGATIVE) RSV (PCR) (Negative) 10/24/18 10/24/18 10/24/18 Range/Units 07:44 07:40 07:25 WBC 6.5 (4.0-10.5) K/mm3 RBC 3.75 L (4.1-5.4) M/mm3 Hgb 12.7 (12.0-16.0) gm/dl Hct 37.5 (35-47) % MCV 100.0 (78-100) fl MCH 33.8 H (26-32) pg MCHC 33.9 (32-36) g/dl RDW 11.0 L (11.5-14.0) % Plt Count 220 (150-450) K/mm3 MPV 8.9 (6-9.5) fl Gran % 85.2 H (36.0-66.0) % Eos # (Auto) 0 (0-0.5) Absolute Lymphs (auto) 0.67 L (1.0-4.6) Absolute Monos (auto) 0.27 (0.0-1.3) Lymphocytes % 10.4 L (24.0-44.0) % Monocytes % 4.2 (0.0-12.0) % Eosinophils % 0.0 (0.00-5.0) % Basophils % 0.2 (0.0-0.4) % Absolute Granulocytes 5.50 (1.4-6.9) Basophils # 0.01 (0-0.4) pO2/FiO2 Ratio 21.0 % VBG pH 7.31 L (7.32-7.42) VBG pCO2 at Pat Temp 66 H* (42-55) mm/Hg VBG pO2 at Pat Temp 25 (25-40) mm/Hg VBG HCO3 33.2 H* (22-28) meq/L VBG O2 Sat (Bryon) 50.1 L (95-100) VBG Base Excess 4.8 H (-2.0-2.0) VBG Hemoglobin 13.5 VBG Carboxyhemoglobin 1.6 (0.0-6.9) % T HGB POC Potassium 3.4 L (3.5-5.1) Sodium (137-145) mmol/L Potassium (3.5-5.1) mmol/L Chloride (98-107) mmol/L Carbon Dioxide (22-30) mmol/L Anion Gap (5-15) MEQ/L BUN (7-17) mg/dL Creatinine (0.52-1.04) mg/dL Estimated GFR ML/MIN Glucose (74-106) mg/dL Calcium (8.4-10.2) mg/dL Total Bilirubin (0.2-1.3) mg/dL AST (14-36) U/L ALT (0-35) U/L Alkaline Phosphatase (38-126) U/L Troponin I (0.000-0.034) ng/mL Serum Total Protein (6.3-8.2) g/dL Albumin (3.5-5.0) g/dL Amylase (30-110) U/L Lipase (23-300) U/L Urine Color (YELLOW) Urine Appearance (CLEAR) Urine pH (5-6) Ur Specific Alpha (1.005-1.025) Urine Protein (Negative) Urine Ketones (NEGATIVE) Urine Blood (0-5) Manny/ul Urine Nitrite (NEGATIVE) Urine Bilirubin (NEGATIVE) Urine Urobilinogen (0-1) mg/dL Ur Leukocyte Esterase (NEGATIVE) Urine WBC (Auto) Urine RBC (Auto) (0-2) /HPF U Epithel Cells (Auto) (FEW) /HPF Urine Bacteria (Auto) (NEGATIVE) /HPF Amorphous Crystals (NEGATIVE) /HPF Urine Mucus (Auto) (NEGATIVE) /HPF Urine Culture Reflexed (NO) Urine Glucose (NEGATIVE) mg/dL Influenza Type A Ag NEGATIVE (NEGATIVE) Influenza Type B Ag NEGATIVE (NEGATIVE) RSV (PCR) NEGATIVE (Negative) - Progress Progress: improved Progress Note: 10/24/18 09:00 Patient does appear somewhat better after IV normal saline and Xopenex treatment. She has requested not to have albuterol because it was making her too jittery. Patient's labs were remarkable for hyponatremia, with a sodium of 119 Patient's EKG sinus rhythm, 78 bpm normal axis no acute ST or T wave changes Chest x-ray was remarkable for COPD Patient's white count was 6.5 hemoglobin 12.7 hematocrit 37.5 patient had a PCO2 of 65 and a pH of 7.31 on her VBG's Troponin was somewhat elevated at 0.070 I discussed patient's case with Dr. Ko she states that the patient did have elevated troponin at last admission Will go ahead and give patient aspirin 324 mg orally patient is already on Augmentin 875 mg by mouth twice a day patient is also on prednisone Will continue prednisone write for Xopenex treatments continue IV normal saline Will write for a consult with Dr. FREDRICK Ko Impression 1 weakness. 2 COPD. 3 hyponatremia. 4 elevated troponin. 10/24/18 09:21 I had planned to admit patient to observation here at [facility]. However Dr. Lara called back and requested patient be transferred to [facility]. He states that the patient has had troponin elevated on 2 visits. He would like the patient to be taking care [facility] but will plan on getting a consult with a employment officer as well. Unfortunately, however, Dr. Taveras is out of the country and patient will need to have a new consult. - Departure Time of Disposition: 09:04 Departure Disposition: Transfer ([facility]) Clinical Impression: Weakness, Hyponatremia, Elevated troponin COPD (chronic obstructive pulmonary disease) Qualifiers: COPD type: unspecified COPD Qualified Code(s): J44.9 - Chronic obstructive pulmonary disease, unspecified Condition: Fair Critical Care Time: No Referrals: HELDER KO [Primary Care Provider] - Instructions: Chronic Obstructive Pulmonary Disease
[2018-10-24] MEDS ORDERED: Sodium Chloride 0.9% 1000 ML 1,000 ML ONE (07:49)
[2018-10-24 07:50] LABS: VBG BASE EXCESS 4.8 (-2.0-2.0); VBG CARBOXYHEMOGLOBIN 1.6 % T HGB (0.0-6.9); VBG HCO3- 33.2 meq/L (22-28); VBG HEMOGLOBIN 13.5; VBG O2 SATURATION 50.1 (95-100); VBG POTASSIUM 3.4 (3.5-5.1); VBG pH 7.31 (7.32-7.42)
[2018-10-24 08:03] LABS: BASOPHIL % 0.2 % (0.0-0.4); Basophil (Absolute #) 0.01 (0-0.4); Eosinophil (Absolute #) 0 (0-0.5); Granulocytes % 85.2 % (36.0-66.0); Hematocrit 37.5 % (35-47); Hemoglobin 12.7 gm/dl (12.0-16.0); Lymphocyte (Absolute #) 0.67 (1.0-4.6); Lymphocytes % 10.4 % (24.0-44.0); Mean Corpuscular Hgb Concent. 33.9 g/dl (32-36); Mean Platelet Volume 8.9 fl (6-9.5); Monocyte (Absolute #) 0.27 (0.0-1.3); Monocytes % 4.2 % (0.0-12.0); Platelet Count 220 K/mm3 (150-450); Red Blood Count 3.75 M/mm3 (4.1-5.4); White Blood Count 6.5 K/mm3 (4.0-10.5)
[2018-10-24 08:04] LABS: Mean Corpuscular Hemoglobin 33.8 pg (26-32)
[2018-10-24 08:11] LABS: ALBUMIN 4.6 g/dL (3.5-5.0); ALKALINE PHOSPHATASE 79 U/L (38-126); AMYLASE 48 U/L (30-110); ANION GAP 15.1 MEQ/L (5-15); BLOOD UREA NITROGEN 12 mg/dL (7-17); CHLORIDE 76 mmol/L (98-107); Calcium 8.6 mg/dL (8.4-10.2); Carbon Dioxide 31 mmol/L (22-30); Creatinine 1 0.25 mg/dL (0.52-1.04); Glucose 130 mg/dL (74-106); LIPASE 26 U/L (23-300); Potassium 3.6 mmol/L (3.5-5.1); SGOT/AST 63 U/L (14-36); SGPT/ALT 78 U/L (0-35); Total Protein 7.3 g/dL (6.3-8.2)
[2018-10-24] MEDS ORDERED: DUONEB 0.5-3 MG/3 ml Neb IH ONE ×2 (08:19→08:26)
[2018-10-24] MEDS ORDERED: Xopenex 1.25 MG/0.5 ML UD NEBULE IH ONE ×2 (08:30→08:31)
[2018-10-24 08:31] LABS: SODIUM 119 mmol/L (137-145)
[2018-10-24] MEDS ORDERED: Sodium Chloride 3 ML UD NEBULES IH ONE (08:31)
[2018-10-24 08:45] LABS: Amourphous Crystal MODERATE /HPF (NEGATIVE); Appearance CLOUDY (CLEAR); Bacteria MODERATE /HPF (NEGATIVE); Bilirubin NEGATIVE (NEGATIVE); Blood SMALL Ery/ul (0-5); Epithelial Cells FEW /HPF (FEW); Glucose 50 mg/dL (NEGATIVE); Ketones MODERATE (NEGATIVE); Leukocyte Esterase NEGATIVE (NEGATIVE); Mucus SLIGHT /HPF (NEGATIVE); Nitrite NEGATIVE (NEGATIVE); Protein,Urine Dip 30 (Negative); Specific Gravity 1.014 (1.005-1.025); Urobilinogen NEGATIVE mg/dL (0-1)
--- NOTE | 2018-10-24 08:55 | XRAY ---
Indication: Weakness. Comparison: October 21, 2018. Portable chest again demonstrates COPD with hilar calcified nodes. No focal infiltrate, consolidation, or large effusion. Heart and mediastinal structures within normal limits. Bony thorax intact again with mild osteopenia and degenerative changes. Impression: Stable nonacute chest with chronic features.
[2018-10-24 08:59] LABS: INFLUENZA A NEGATIVE (NEGATIVE); INFLUENZA B NEGATIVE (NEGATIVE); RESPIRATORY SYNCTIAL VIRUS NEGATIVE (Negative)
[2018-10-24 09:03] VITALS: O2SAT 98
[2018-10-24] MEDS ORDERED: BABY ASPIRIN 81 MG CHEW PO ONE (09:03)
[2018-10-24] MEDS ORDERED: solu-MEDROL 125 MG IV ONE (09:05)
[2018-10-24] MEDS ORDERED: BABY ASPIRIN 81 MG CHEW ONE (09:07)
[2018-10-24] MEDS ORDERED: solu-MEDROL 125 MG ONE (09:07)
[2018-10-24 09:30] VITALS: PULSE 89
[2018-10-24 10:22] VITALS: BP 126/80
== END 2018-10-24 10:56 | disposition short-term general hospital (02) ==
LOC: ED 07:05
DX: R53.1 Weakness (principal); E87.1 Hypo-osmolality and hyponatremia; J44.9 Chronic obstructive pulmonary disease, unspecified; R74.8 Abnormal levels of other serum enzymes; Z79.899 Other long term (current) drug therapy; R10.30 Lower abdominal pain, unspecified
CPT/HCPCS: 36415; 71045; 80053; 81001; 82150; 82805; 83690; 84484; 85025; 87040; 87086; 87631; 93005; 94150; 94640; 96360; 96374; 99285; J2930; A9270-GY

== ENCOUNTER 2023-04-27 20:29 | Inpatient (IN) | payer MEDICARE ==
[2023-04-27 21:49] LABS: Absolute Neutrophil Ct (ANC) 9.04 x10^3/uL (1.4-6.9); BASOPHIL % 0.1 % (0.0-0.4); Basophil (Absolute #) 0.01 x10^3/uL (0-0.4); Eosinophil (Absolute #) 0 x10^3/uL (0-0.5); Hematocrit 31.2 % (35-47); Hemoglobin 9.3 g/dL (12.0-16.0); IMMATURE GRAN # 0.03 x10^3u/L (0.00-0.03); IMMATURE GRAN % 0.3 % (0.00-0.4); Lymphocyte (Absolute #) 0.19 x10^3/uL (1.0-4.6); Mean Cell Volume 106.1 fL (78-100); Mean Corpuscular Hemoglobin 31.6 pg (26-32); Mean Corpuscular Hgb Concent. 29.8 g/dL (32-36); Mean Platelet Volume 9.3 fL (7.5-11.0); Monocyte (Absolute #) 0.41 x10^3/uL (0.0-1.3); Monocytes % 4.2 % (0.0-12.0); Neutrophil % 93.4 % (36.0-66.0); Platelet Count 408 x10^3/uL (150-450); Red Blood Count 2.94 x10^6/uL (4.1-5.4); Red Cell Distribution Width 12.4 % (11.5-14.0); White Blood Count 9.7 x10^3/uL (4.0-10.5)
[2023-04-27 22:08] LABS: ALBUMIN 3.6 g/dL (3.5-5.0); ALKALINE PHOSPHATASE 104 U/L (38-126); BLOOD UREA NITROGEN 23 mg/dL (7-17); CHLORIDE 88 mmol/L (98-107); Calcium 9.5 mg/dL (8.4-10.2); Creatinine 1 0.31 mg/dL (0.52-1.04); EST GLOMERULAR FILTRATION RATE > 60.0 ML/MIN; Glucose 94 mg/dL (74-106); MAGNESIUM 2.2 mg/dL (1.6-2.3); Potassium 4.6 mmol/L (3.5-5.1); SGOT/AST 37 U/L (14-36); SGPT/ALT 25 U/L (0-35); SODIUM 135 mmol/L (137-145); Total Protein 6.1 g/dL (6.3-8.2)
[2023-04-27 22:14] LABS: Carbon Dioxide 47 mmol/L (22-30)
[2023-04-27 22:15] LABS: ANION GAP 4.6 MEQ/L (5-15)
[2023-04-27 22:24] LABS: PROCALCITONIN 0.087 ng/mL (0.030-0.080)
--- NOTE | 2023-04-27 22:46 | XRAY ---
CLINICAL HISTORY:sob COMPARISON:02-07-2023, CR chest. TECHNIQUE:Chest x-ray frontal/portable projection. FINDINGS: Hyperinflated lungs in both lung burnette. Fibrotic changes are noted in both upper lobes. No focal consolidation or collapse is seen. The cardio mediastinal silhouette is within normal limits. Blunting of both costophrenic sulcus may reflect a trace of pleural effusion versus pleural thickening. This is similar to the prior study. Degenerative changes are noted in the visualized thoracic spine. IMPRESSION: 1. Extensive bilateral emphysema changes with the suggestion of bilateral upper lobe fibro atelectatic changes. 2. Blunting of both costophrenic sulcus may reflect a trace of pleural effusion versus pleural thickening. Ultrasound correlation is suggested. 3. No significant interval changes compared to the prior study. Electronically Signed by: Orin Ortega MD. (04/27/2023 21:46:11 CERTIFIED NURSES AIDE)
[2023-04-27] MEDS ORDERED: CLINDAMYCIN-D5W 600 MG/50 ML*** 600 MG/50 ML BAG IV STA (23:09)
[2023-04-27] MEDS ORDERED: ROCEPHIN 1 Gm-D5w 50 ml Bag** 1 G/50 ML IVPB IV STA (23:19)
[2023-04-27] MEDS ORDERED: Zithromax 500 MG/ 250 ML NaCl Premix 500 MG/250 ML IVPB IV STA (23:19)
[2023-04-27] MEDS ORDERED: DUONEB 0.5-3 MG/3 ml Neb IH ONE ×2 (23:21→23:24)
--- NOTE | 2023-04-27 23:25 | ERPHSYRPT ---
- History of Present Illness Time Seen by Provider: 04/27/23 20:30 Source: patient, EMS Exam Limitations: no limitations Patient Subjective Stated Complaint: pt states she didn't want to come to the hospital but her PT was at her house and called 911 and "made me come". pt states that she had a little bit of SOB earlier but is at her baseline now. she reports that the SOB episode and her current status is her normal. Triage Nursing Assessment: pt brought to room 7 per EMS ambulance and was transferred onto ED cart per EMS personnel x2. pt is alert and oriented times three, resp even and unlabored, is able to speak in complete sentences, and is able to move all extremities (limited to left arm due to radial nerve injury). heart sounds are regular and normal. lung sounds are diminished throughout anterior and posterior. no cough noted but pt states she has a "frog in throat" and denies coughing anything up. bilat feet swollen with thin shiny skin, bruising, and a skin tear which pt states is normal for her and is due to taking prednisone. Physician History: 72-year-old cachectic female with chronic respiratory failure on 2 L oxygen, tobacco abuse presented in the ER with chief complaint of increasing shortness of breath for the last couple of days which is episodic and improves on its own. Earlier patient was with home health and was recommended to be seen in the ER. Patient reports she got Solu-Medrol in route to the ER and is feeling better now and close to baseline. Patient has bilateral lower extremity swelling and denies any history of congestive heart failure. She does have left foot open sore for the last week and a half. Denies any fever or chills. Patient is tachypneic despite being on oxygen. Denies any chest pain but soreness because of coughing. Patient continues to smoke. Timing/Duration: day(s) (3), gradual onset, worse Activities at Onset: rest Severity of Dyspnea-Max: moderate Severity of Dyspnea-Current: moderate Possible Cause: unknown cause Modifying Factors: Worsens With: coughing, exertion Associated Symptoms: cough, edema, leg swelling, productive cough Allergies/Adverse Reactions: fluticasone furoate [From Trelegy Ellipta] Allergy (Severe, Verified 04/27/23 20:33) Shortness of Breath umeclidinium [From Trelegy Ellipta] Allergy (Severe, Verified 04/27/23 20:33) Shortness of Breath vilanterol [From Trelegy Ellipta] Allergy (Severe, Verified 04/27/23 20:33) Shortness of Breath acetaminophen [From Darvocet-N] Allergy (Intermediate, Verified 10/24/18 07:17) Rash propoxyphene napsylate [From Darvocet-N] Allergy (Intermediate, Verified 10/21/18 17:36) Rash fexofenadine [From Elis-D] Allergy (Verified 10/24/18 07:18) pseudoephedrine [From Elis-D] Allergy (Verified 10/24/18 07:18) Home Medications: Albuterol Sulfate Mdi [ALBUTEROL/Proair Hfa MDI] 2 puff IH QID 10/21/18 [History] Ipratropium/Albuterol Sulfate [Iprat-Albut 0.5-3(2.5) mg/3 ml] 1 neb IH QID 10/21/18 [History] Budesonide/Formoterol Fumarate [Symbicort 160-4.5 Mcg Inhaler] 2 puff IH BID 04/27/23 [History] Fluticasone Propionate [Flovent Diskus] 2 spray IH BID 04/27/23 [History] Nicotine [Nicotine Patch] 1 each TD DAILY 04/27/23 [History] Tiotropium [place] Inhaler [Spiriva 18 Mcg/Cap Inhaler] 2 puff IH DAILY 04/27/23 [History] atenoloL [Atenolol] 6.25 mg PO BID 04/27/23 [History] levoFLOXacin [Levofloxacin] 750 mg PO DAILY 04/27/23 [History] Hx Tetanus, Diphtheria Vaccination/Date Given: Yes Hx Influenza Vaccination/Date Given: Yes Hx Pneumococcal Vaccination/Date Given: Yes Immunizations Up to Date: Yes Travel Risk - International Travel Have you traveled outside of the country in past 3 weeks: No - Coronavirus Screening Are you exhibiting any of the following symptoms?: No Close contact with a COVID-19 positive Pt in past 14-21 Days: No - Vaccine Status Have you recieved a Covid-19 vaccination: Yes 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[place] - Vaccination Dates Date of 2cond Vaccination (if applicable): unknown - Review of Systems Constitutional: Fatigue, Weakness Eyes: No Symptoms Ears, Nose, & Throat: No Symptoms Respiratory: Cough, Dyspnea, Dyspnea on Exertion (GERONIMO), Wheezing Cardiac: Edema Abdominal/Gastrointestinal: No Symptoms Genitourinary Symptoms: No Symptoms Musculoskeletal: Injury Skin: Skin Lesions Neurological: Other (Left radial pulse) Psychological: Anxiety Endocrine: No Symptoms Hematologic/Lymphatic: No Symptoms Immunological/Allergic: No Symptoms - Past Medical History Pertinent Past Medical History: Yes Neurological History: No Pertinent History ENT History: No Pertinent History Cardiac History: No Pertinent History Respiratory History: COPD, Emphysema Endocrine Medical History: No Pertinent History Musculoskeletal History: Osteoporosis, Other GI Medical History: No Pertinent History History: No Pertinent History Psycho-Social History: No Pertinent History Female Reproductive Disorders: No Pertinent History Other Medical History: BEING TESTED FOR RA. 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 - Past Surgical History Past Surgical History: Yes Neuro Surgical History: No Pertinent History Cardiac: No Pertinent History Respiratory: No Pertinent History Gastrointestinal: No Pertinent History Genitourinary: No Pertinent History Musculoskeletal: Orthopedic Surgery Female Surgical History: Section Other Surgical History: rt arm - Social History Smoking Status: Current every day smoker How long have you smoked: YRS Exposure to second hand smoke: No Drug Use: none Patient Lives Alone: Yes - Nursing Vital Signs Nursing Vital Signs: Initial Vital Signs Temperature 97.5 F 04/27/23 20:30 Pulse Rate 86 04/27/23 20:30 Respiratory Rate 28 H 04/27/23 20:30 Blood Pressure 121/62 04/27/23 20:30 O2 Sat by Pulse Oximetry 98 04/27/23 20:30 Pain Scale Pain Intensity 0 - Physical Exam General Appearance: mild distress, alert, anxiety Eye Exam: PERRL/EOMI Ears, Nose, Throat Exam: hearing grossly normal, normal ENT inspection, pharyngeal erythema Neck Exam: normal inspection, non-tender, supple, full range of motion Respiratory Exam: diminished breath sounds, crackles/rales, wheezing Cardiovascular/Chest Exam: normal heart sounds, regular rate/rhythm Abdominal/Gastrointestinal Exam: soft, normal bowel sounds, No tenderness Extremity Exam: non-tender, pedal edema (2+ pitting edema. Open sore left foot dorsum. Good granulation tissue. 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 04/27/23 21:17 Active EKG-ER Only STAT Care 04/27/23 21:16 Active IV Insertion STAT Care 04/27/23 21:16 Active CHEST 1 VIEW (PORTABLE) Stat Exams 04/27/23 21:30 Completed ABG [ARTERIAL BLOOD GASES] Stat Lab 04/27/23 23:18 Ordered BLOOD CULTURE Stat Lab 04/27/23 21:45 Received CBC W DIFF Stat Lab 04/27/23 21:45 Completed CMP Stat Lab 04/27/23 21:45 Completed Lactic Acid Stat Lab 04/27/23 21:30 Completed MAGNESIUM Stat Lab 04/27/23 21:45 Completed NT PRO BNPII Stat Lab 04/27/23 21:45 Completed PROCALCITONIN Stat Lab 04/27/23 21:45 Completed TROPONIN Q4H Lab 04/27/23 21:45 Completed TROPONIN Q4H Lab 04/28/23 01:30 Ordered TROPONIN Q4H Lab 04/28/23 05:30 Ordered UA W/RFX UR CULTURE Stat Lab 04/27/23 21:17 Ordered Medication Summary Generic Name Dose Route Start Last Admin Trade Name Freq PRN Reason Stop Dose Admin Azithromycin 500 mg in 250 mls @ 250 mls/hr 04/27/23 23:19 Zithromax 500 Mg/ 250 Ml Nacl Premix IV 04/28/23 00:18 STAT STA Ceftriaxone Sodium/Dextrose 1 g in 50 mls @ 100 mls/hr 04/27/23 23:19 Rocephin 1 Gm-D5w 50 Ml Bag IV 04/27/23 23:48 STAT STA Discontinued Medications Generic Name Dose Route Start Last Admin Trade Name Freq PRN Reason Stop Dose Admin Albuterol/Ipratropium 3 ml 04/27/23 23:21 Ipratropium/Albuterol Sulfate 3 Ml Ampul.Neb IH 04/27/23 23:22 STAT ONE Albuterol/Ipratropium Confirm 04/27/23 23:24 Ipratropium/Albuterol Sulfate 3 Ml Ampul.Neb Administered 04/27/23 23:25 Dose 3 ml IH .STK-MED ONE Clindamycin HCl/Dextrose 600 mg in 50 mls @ 100 mls/hr 04/27/23 23:09 Clindamycin-D5w 600 Mg/50 Ml IV 04/27/23 23:38 STAT STA Lab/Rad Data: Laboratory Result Diagrams 04/27/23 21:45 04/27/23 21:45 Laboratory Results 04/27/23 04/27/23 04/27/23 Range/Units 21:45 21:45 21:45 WBC (4.0-10.5) x10^3/uL RBC (4.1-5.4) x10^6/uL Hgb (12.0-16.0) g/dL Hct (35-47) % MCV (78-100) fL MCH (26-32) pg MCHC (32-36) g/dL RDW (11.5-14.0) % Plt Count (150-450) x10^3/uL MPV (7.5-11.0) fL Gran % (36.0-66.0) % Immature Gran % (Auto) (0.00-0.4) % Nucleat RBC Rel Count (0.00-0.1) % Eos # (Auto) (0-0.5) x10^3/uL Immature Gran # (Auto) (0.00-0.03) x10^3u/L Absolute Lymphs (auto) (1.0-4.6) x10^3/uL Absolute Monos (auto) (0.0-1.3) x10^3/uL Absolute Nucleated RBC (0.00-0.01) x10^3u/L Lymphocytes % (24.0-44.0) % Monocytes % (0.0-12.0) % Eosinophils % (0.00-5.0) % Basophils % (0.0-0.4) % Absolute Granulocytes (1.4-6.9) x10^3/uL Basophils # (0-0.4) x10^3/uL Sodium 135 L (137-145) mmol/L Potassium 4.6 (3.5-5.1) mmol/L Chloride 88 L (98-107) mmol/L Carbon Dioxide 47 H (22-30) mmol/L Anion Gap 4.6 L (5-15) MEQ/L BUN 23 H (7-17) mg/dL Creatinine 0.31 L (0.52-1.04) mg/dL Estimated GFR > 60.0 ML/MIN Glucose 94 (74-106) mg/dL Lactic Acid (0.4-2.0) Calcium 9.5 (8.4-10.2) mg/dL Magnesium 2.2 (1.6-2.3) mg/dL Total Bilirubin 0.40 (0.2-1.3) mg/dL AST 37 H (14-36) U/L ALT 25 (0-35) U/L Alkaline Phosphatase 104 (38-126) U/L Troponin I < 0.012 (0.000-0.034) ng/mL NT-Pro-B Natriuret Pep 321 (<300) pg/mL Serum Total Protein 6.1 L (6.3-8.2) g/dL Albumin 3.6 (3.5-5.0) g/dL Procalcitonin 0.087 H (0.030-0.080) ng/mL Slides for Path Review 04/27/23 04/27/23 Range/Units 21:45 21:30 WBC 9.7 (4.0-10.5) x10^3/uL RBC 2.94 L (4.1-5.4) x10^6/uL Hgb 9.3 L (12.0-16.0) g/dL Hct 31.2 L (35-47) % MCV 106.1 H (78-100) fL MCH 31.6 (26-32) pg MCHC 29.8 L (32-36) g/dL RDW 12.4 (11.5-14.0) % Plt Count 408 (150-450) x10^3/uL MPV 9.3 (7.5-11.0) fL Gran % 93.4 H (36.0-66.0) % Immature Gran % (Auto) 0.3 (0.00-0.4) % Nucleat RBC Rel Count 0.0 (0.00-0.1) % Eos # (Auto) 0 (0-0.5) x10^3/uL Immature Gran # (Auto) 0.03 (0.00-0.03) x10^3u/L Absolute Lymphs (auto) 0.19 L (1.0-4.6) x10^3/uL Absolute Monos (auto) 0.41 (0.0-1.3) x10^3/uL Absolute Nucleated RBC 0.00 (0.00-0.01) x10^3u/L Lymphocytes % 2.0 L (24.0-44.0) % Monocytes % 4.2 (0.0-12.0) % Eosinophils % 0.0 (0.00-5.0) % Basophils % 0.1 (0.0-0.4) % Absolute Granulocytes 9.04 H (1.4-6.9) x10^3/uL Basophils # 0.01 (0-0.4) x10^3/uL Sodium (137-145) mmol/L Potassium (3.5-5.1) mmol/L Chloride (98-107) mmol/L Carbon Dioxide (22-30) mmol/L Anion Gap (5-15) MEQ/L BUN (7-17) mg/dL Creatinine (0.52-1.04) mg/dL Estimated GFR ML/MIN Glucose (74-106) mg/dL Lactic Acid 1.4 (0.4-2.0) Calcium (8.4-10.2) mg/dL Magnesium (1.6-2.3) mg/dL Total Bilirubin (0.2-1.3) mg/dL AST (14-36) U/L ALT (0-35) U/L Alkaline Phosphatase (38-126) U/L Troponin I (0.000-0.034) ng/mL NT-Pro-B Natriuret Pep (<300) pg/mL Serum Total Protein (6.3-8.2) g/dL Albumin (3.5-5.0) g/dL Procalcitonin (0.030-0.080) ng/mL Slides for Path Review YES - Progress Progress: improved, re-examined Air Movement: fair Progress Note: 04/27/23 23:26 72-year-old cachectic female with chronic respiratory failure on 2 L oxygen, tobacco abuse presented in the ER with chief complaint of increasing shortness of breath for the last couple of days which is episodic and improves on its own. Earlier patient was with home health and was recommended to be seen in the ER. Patient reports she got Solu-Medrol in route to the ER and is feeling better now and close to baseline. Patient has bilateral lower extremity swelling and denies any history of congestive heart failure. She does have left foot open sore for the last week and a half. Denies any fever or chills. Patient is tachypneic despite being on oxygen. Denies any chest pain but soreness because of coughing. Patient continues to smoke. She is given DuoNeb and have already Solu-Medrol in route to the ER. Patient still wheezing and tachypneic. EKG is normal sinus rhythm. Initial troponins are negative. Normal BNP. Patient has bilateral lower extremity edema which is kind of chronic and has ulcer on left foot which seems healing. No signs of cellulitis around. Chest x-ray showed some pleural effusion and chronic changes. White count is normal, mildly elevated procalcitonin 1.08. Normal lactate. I believe patient has CO2 retention, ABG is pending. I believe she w ould benefit with admission with IV steroids, antibiotics and neb treatments. I have discussed the results of work-up and recommended admission with patient initially was adamant about leaving and then later agreed to stay in the hospital after lengthy discussion for 20 minutes at least. Hospitalist has been paged and patient will be admitted. 04/27/23 23:[address] Smith, reviewed history, work-up and agreed with admission and current management. Blood Culture(s) Obtained: Yes Antibiotics given: Yes Will see patient in: hospital (observation) Counseled pt/family regarding: lab results, diagnosis, need for follow-up, rad results, smoking cessation Medical Desision Making - Independent Historian Additional History obtained from: EMS - Discussion of managment Care discussed with:: hospitalist (Dr. Smith at [id number]) Reviewed:: Test results Agreed on:: Treatment plan, place in obs Will see patient: in hospital - Diagnostic Testing Diagnostic test were ordered, analyzed, and reviewed by me: Yes Radiological Interpretation: Interpreted by me, Reviewed by me, Teleradiologist Report - Risk of complications The pt has a high risk of morbidity or mortality based on: Decision regarding hospitilization or escalation of hosp level of care - Departure Departure Disposition: Observation Clinical Impression: Bilateral leg edema, Foot ulcer COPD (chronic obstructive pulmonary disease) Qualifiers: COPD type: COPD with acute exacerbation Qualified Code(s): J44.1 - Chronic obstructive pulmonary disease with (acute) exacerbation Condition: Fair Critical Care Time: No Referrals: HELDER KO [Primary Care Provider] - Follow up/PCP as directed Instructions: Chronic Obstructive Pulmonary Disease
[2023-04-27 23:32] LABS: Slide Review 1 YES
[2023-04-27 23:37] LABS: A-aADO2 43; ABG HEMOGLOBIN 9.5; ABG POTASSIUM 4.4 (3.5-5.1); ARTERIAL BLD GAS O2 SATURATION 97.4 % (95-100); ARTERIAL BLOOD GAS BASE EXCESS 23.9 (-2.0-2.0); ARTERIAL BLOOD GAS FIO2 28 %; ARTERIAL BLOOD GAS PO2 69 mmHg (75-100); ARTERIAL BLOOD GAS pH 7.47 (7.35-7.45); CARBOXYHEMOGLOBIN 1.8 % THgb (0.0-6.9); HCO3- 50.9 (22-28); HGB O2 SAT 94.8 g/dF (94-100); paO2 pAO1 0.62
[2023-04-27 23:38] LABS: ABG SITE RIGHT RADIAL; ALLEN TEST OK? Yes; ARTERIAL BLOOD GAS PCO2 70 mmHg (35-45)
[2023-04-28] MEDS ORDERED: TYLENOL 325 MG PO PRN (00:05)
[2023-04-28] MEDS ORDERED: Sterile H2O 10 ml IJ ONE ×2 (00:10→06:00)
[2023-04-28] MEDS ORDERED: solu-MEDROL ONE ×2 (00:10→05:59)
[2023-04-28] MEDS ORDERED: ROCEPHIN 1 Gm-D5w 50 ml Bag** 1 G/50 ML IVPB IV ONE (00:11)
[2023-04-28] MEDS: solu-MEDROL 60 MG, Sterile H2O 10 ml 2 ML IV SCH ×10 (00:14→23:26)
--- NOTE | 2023-04-28 00:20 | PCM.HP ---
History of Present Illness - Chief Complaint Chief Complaint: COPD with acute exacerbation History of Present Illness: is a 72 year old female. 72 year old F with COPD, tobacco abuse who presents with shortness of breath for the past few days. Denies fevers, chills, chest pain. Continued smoker. - Review of Systems Constitutional: No Fever, No Chills Eyes: No Symptoms Ears, Nose, & Throat: No Symptoms Respiratory: Short Of Breath, Wheezing, No Cough Cardiac: No Chest Pain, No Edema, No Syncope Abdominal/Gastrointestinal: No Abdominal Pain, No Nausea, No Vomiting, No Diarrhea Genitourinary Symptoms: No Dysuria Musculoskeletal: No Back Pain, No Neck Pain Skin: No Rash Neurological: No Dizziness, No Focal Weakness, No Sensory Changes Psychological: No Symptoms Endocrine: No Symptoms Hematologic/Lymphatic: No Symptoms Immunological/Allergic: No Symptoms Medications & Allergies Home Medications: Home Medication List Albuterol Sulfate Mdi [ALBUTEROL/Proair Hfa MDI] 2 puff IH QID 10/21/18 [History Confirmed 04/27/23] Ipratropium/Albuterol Sulfate [Iprat-Albut 0.5-3(2.5) mg/3 ml] 1 neb IH QID 10/21/18 [History Confirmed 04/27/23] Budesonide/Formoterol Fumarate [Symbicort 160-4.5 Mcg Inhaler] 2 puff IH BID 04/27/23 [History Confirmed 04/27/23] Fluticasone Propionate [Flovent Diskus] 2 spray IH BID 04/27/23 [History Confirmed 04/27/23] Nicotine [Nicotine Patch] 1 each TD DAILY 04/27/23 [History Confirmed 04/27/23] Tiotropium [place] Inhaler [Spiriva 18 Mcg/Cap Inhaler] 2 puff IH DAILY 04/27/23 [History Confirmed 04/27/23] atenoloL [Atenolol] 6.25 mg PO BID 04/27/23 [History Confirmed 04/27/23] levoFLOXacin [Levofloxacin] 750 mg PO DAILY 04/27/23 [History Confirmed 04/27/23] Allergies/Adverse Reactions: Allergies Allergy/AdvReac Type Severity Reaction Status Date / Time fluticasone furoate Allergy Severe Shortness Verified 04/27/23 20:33 [From Trelegy Ellipta] of Breath umeclidinium Allergy Severe Shortness Verified 04/27/23 20:33 [From Trelegy Ellipta] of Breath vilanterol Allergy Severe Shortness Verified 04/27/23 20:33 [From Trelegy Ellipta] of Breath acetaminophen Allergy Intermediate Rash Verified 10/24/18 07:17 [From Darvocet-N] propoxyphene napsylate Allergy Intermediate Rash Verified 10/21/18 17:36 [From Darvocet-N] fexofenadine [From Elis-D] Allergy Verified 10/24/18 07:18 pseudoephedrine Allergy Verified 10/24/18 07:18 [From Elis-D] - Past Medical History Past Medical History: Yes Neurological History: No Pertinent History ENT History: No Pertinent History Cardiac History: No Pertinent History Respiratory History: COPD, Emphysema Endocrine Medical History: No Pertinent History Musculoskelatal History: Osteoporosis, Other GI Medical History: No Pertinent History History: No Pertinent History Pyscho-Social History: No Pertinent History Reproductive Disorders: No Pertinent History Comment: BEING TESTED FOR RA. 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 - Past Surgical History Past Surgical History: Yes Neuro Surgical History: No Pertinent History Cardiac History: No Pertinent History Respiratory Surgery: No Pertinent History GI Surgical History: No Pertinent History Genitourinary Surgical Hx: No Pertinent History Musculskeletal Surgical Hx: Orthopedic Surgery Female Surgical History: Section Other Surgical History: rt arm - Social History Smoking Status: Current every day smoker How long have you smoked: YRS Exposure to second hand smoke: No Alcohol: None Drug Use: none - Physical Exam Vital Signs: Vital Signs - 24 hr Temp Pulse Resp BP BP Pulse Ox 04/27/23 23:46 78 22 99 04/27/23 23:37 97 04/27/23 21:00 86 21 104/46 97 04/27/23 20:36 23 96 04/27/23 20:33 80 27 H 121/62 96 04/27/23 20:30 97.5 F 86 28 H 121/62 98 General Appearance: no apparent distress, alert Neurologic Exam: alert, oriented x 3, cooperative, normal mood/affect, nml cerebellar function, nml station & gait, sensation nml, No motor deficits Eye Exam: PERRL/EOMI, eyes nml inspection Ears, Nose, Throat Exam: normal ENT inspection, TMs normal, pharynx normal, moist mucous membranes Neck Exam: normal inspection, non-tender, supple, full range of motion Respiratory Exam: normal breath sounds, lungs clear, No respiratory distress Cardiovascular Exam: regular rate/rhythm, normal heart sounds, normal peripheral pulses Gastrointestinal/Abdomen Exam: soft, normal bowel sounds, No tenderness, No mass Back Exam: normal inspection, normal range of motion, No CVA tenderness, No vertebral tenderness Extremity Exam: normal inspection, normal range of motion, pelvis stable Skin Exam: normal color, warm, dry, No rash Lymphatic Exam: No adenopathy Results - Labs Lab/Micro Results: Lab Results-Last 24 Hours 04/27/23 04/27/23 04/27/23 Range/Units 21:30 21:45 21:45 WBC 9.7 (4.0-10.5) x10^3/uL RBC 2.94 L (4.1-5.4) x10^6/uL Hgb 9.3 L (12.0-16.0) g/dL Hct 31.2 L (35-47) % MCV 106.1 H (78-100) fL MCH 31.6 (26-32) pg MCHC 29.8 L (32-36) g/dL RDW 12.4 (11.5-14.0) % Plt Count 408 (150-450) x10^3/uL MPV 9.3 (7.5-11.0) fL Gran % 93.4 H (36.0-66.0) % Immature Gran % (Auto) 0.3 (0.00-0.4) % Nucleat RBC Rel Count 0.0 (0.00-0.1) % Eos # (Auto) 0 (0-0.5) x10^3/uL Immature Gran # (Auto) 0.03 (0.00-0.03) x10^3u/L Absolute Lymphs (auto) 0.19 L (1.0-4.6) x10^3/uL Absolute Monos (auto) 0.41 (0.0-1.3) x10^3/uL Absolute Nucleated RBC 0.00 (0.00-0.01) x10^3u/L Lymphocytes % 2.0 L (24.0-44.0) % Monocytes % 4.2 (0.0-12.0) % Eosinophils % 0.0 (0.00-5.0) % Basophils % 0.1 (0.0-0.4) % Absolute Granulocytes 9.04 H (1.4-6.9) x10^3/uL Basophils # 0.01 (0-0.4) x10^3/uL Puncture Site pCO2 (35-45) mmHg pO2 (75-100) mmHg Base Excess (-2.0-2.0) O2 Saturation (94-100) g/dF ABG pH (7.35-7.45) ABG HCO3 (22-28) ABG O2 Sat (Measured) (95-100) % Sukumar Test A-a Gradient a/A Ratio Hemoglobin Carboxyhemoglobin (0.0-6.9) % THgb Methemoglobin (1.4-1.5) % Temperature C POC O2 Flow Rate % Sodium 135 L (137-145) mmol/L Potassium 4.6 (3.5-5.1) mmol/L Chloride 88 L (98-107) mmol/L Carbon Dioxide 47 H (22-30) mmol/L Anion Gap 4.6 L (5-15) MEQ/L BUN 23 H (7-17) mg/dL Creatinine 0.31 L (0.52-1.04) mg/dL Estimated GFR > 60.0 ML/MIN Glucose 94 (74-106) mg/dL Lactic Acid 1.4 (0.4-2.0) Calcium 9.5 (8.4-10.2) mg/dL Magnesium 2.2 (1.6-2.3) mg/dL Total Bilirubin 0.40 (0.2-1.3) mg/dL AST 37 H (14-36) U/L ALT 25 (0-35) U/L Alkaline Phosphatase 104 (38-126) U/L Troponin I (0.000-0.034) ng/mL NT-Pro-B Natriuret Pep (<300) pg/mL Serum Total Protein 6.1 L (6.3-8.2) g/dL Albumin 3.6 (3.5-5.0) g/dL Procalcitonin (0.030-0.080) ng/mL Slides for Path Review YES 04/27/23 04/27/23 04/27/23 Range/Units 21:45 21:45 23:30 WBC (4.0-10.5) x10^3/uL RBC (4.1-5.4) x10^6/uL Hgb (12.0-16.0) g/dL Hct (35-47) % MCV (78-100) fL MCH (26-32) pg MCHC (32-36) g/dL RDW (11.5-14.0) % Plt Count (150-450) x10^3/uL MPV (7.5-11.0) fL Gran % (36.0-66.0) % Immature Gran % (Auto) (0.00-0.4) % Nucleat RBC Rel Count (0.00-0.1) % Eos # (Auto) (0-0.5) x10^3/uL Immature Gran # (Auto) (0.00-0.03) x10^3u/L Absolute Lymphs (auto) (1.0-4.6) x10^3/uL Absolute Monos (auto) (0.0-1.3) x10^3/uL Absolute Nucleated RBC (0.00-0.01) x10^3u/L Lymphocytes % (24.0-44.0) % Monocytes % (0.0-12.0) % Eosinophils % (0.00-5.0) % Basophils % (0.0-0.4) % Absolute Granulocytes (1.4-6.9) x10^3/uL Basophils # (0-0.4) x10^3/uL Puncture Site RIGHT RADIAL pCO2 70 H* (35-45) mmHg pO2 69 L (75-100) mmHg Base Excess 23.9 H (-2.0-2.0) O2 Saturation 94.8 (94-100) g/dF ABG pH 7.47 H (7.35-7.45) ABG HCO3 50.9 H* (22-28) ABG O2 Sat (Measured) 97.4 (95-100) % Sukumar Test Yes A-a Gradient 43 a/A Ratio 0.62 Hemoglobin 9.5 Carboxyhemoglobin 1.8 (0.0-6.9) % THgb Methemoglobin 1.0 L (1.4-1.5) % Temperature 37.0 C POC O2 Flow Rate 28 % Sodium (137-145) mmol/L Potassium 4.4 (3.5-5.1) mmol/L Chloride (98-107) mmol/L Carbon Dioxide (22-30) mmol/L Anion Gap (5-15) MEQ/L BUN (7-17) mg/dL Creatinine (0.52-1.04) mg/dL Estimated GFR ML/MIN Glucose (74-106) mg/dL Lactic Acid (0.4-2.0) Calcium (8.4-10.2) mg/dL Magnesium (1.6-2.3) mg/dL Total Bilirubin (0.2-1.3) mg/dL AST (14-36) U/L ALT (0-35) U/L Alkaline Phosphatase (38-126) U/L Troponin I < 0.012 (0.000-0.034) ng/mL NT-Pro-B Natriuret Pep 321 (<300) pg/mL Serum Total Protein (6.3-8.2) g/dL Albumin (3.5-5.0) g/dL Procalcitonin 0.087 H (0.030-0.080) ng/mL Slides for Path Review - Radiology Impressions Radiology Exams & Impressions: Radiology Procedures Category Date Time Status CHEST 1 VIEW (PORTABLE) Stat Exams 04/27/23 21:30 Completed - Other Procedures and Tests Respiratory Therapy 04/27/23 23:46 Respiratory Therapy Assessment DAILY 04/28/23 00:05 Oxygen Nasal Cannula 4 lpm Assessment/Plan (1) COPD (chronic obstructive pulmonary disease) Current Visit: Yes Status: Acute Onset Date: ~10/21/18 Qualifiers: COPD type: COPD with acute exacerbation Qualified Code(s): J44.1 - Chronic obstructive pulmonary disease with (acute) exacerbation Assessment & Plan: Duonebs Solumedrol O2 Azithro (2) Tobacco abuse Current Visit: No Status: Acute Code(s): Z72.0 - TOBACCO USE Telemedicine Encounter - Telemedicine Encounter Telemedicine Encounter: The entirety of this encounter was performed via Telemedicine"
[2023-04-28] MEDS ORDERED: DUONEB 0.5-3 MG/3 ml Neb IH SCH (01:00)
[2023-04-28 02:45] LABS: Appearance Cloudy (Clear); Bacteria Moderate /HPF (None Seen); Bilirubin Negative (Negative); Blood Large (Negative); Epithelial Cells Rare /HPF (None Seen); Glucose, Urine Negative (Negative); Ketones Negative (Negative); Leukocyte Esterase Moderate (Negative); Nitrite Negative (Negative); Protein,Urine Dip 30 (Negative); RBC >100 /HPF (0-5); Urobilinogen 0.2 mg/dL (0.2); WBC 21-50 /HPF (0-5)
[2023-04-28 02:46] LABS: ADD URINE CULTURE? YES (NO)
[2023-04-28 05:11] LABS: Hematocrit 27.2 % (35-47); Hemoglobin 8.1 g/dL (12.0-16.0); Mean Cell Volume 104.6 fL (78-100); Mean Corpuscular Hemoglobin 31.2 pg (26-32); Mean Corpuscular Hgb Concent. 29.8 g/dL (32-36); Mean Platelet Volume 9.7 fL (7.5-11.0); Platelet Count 378 x10^3/uL (150-450); Red Cell Distribution Width 12.6 % (11.5-14.0); White Blood Count 7.4 x10^3/uL (4.0-10.5)
[2023-04-28 05:35] LABS: BLOOD UREA NITROGEN 22 mg/dL (7-17); CHLORIDE 89 mmol/L (98-107); Calcium 8.7 mg/dL (8.4-10.2); EST GLOMERULAR FILTRATION RATE > 60.0 ML/MIN; Glucose 131 mg/dL (74-106); Potassium 4.1 mmol/L (3.5-5.1); SODIUM 137 mmol/L (137-145)
[2023-04-28 05:44] LABS: ANION GAP 5.1 MEQ/L (5-15); Carbon Dioxide 47 mmol/L (22-30)
[2023-04-28] MEDS: PROVENTIL 2.5 MG/3 ML NEB IH SCH ×5 (07:10→23:08)
[2023-04-28] MEDS: Spiriva 18 Mcg/Cap Inhaler IH SCH (07:31)
[2023-04-28] MEDS: Advair Hfa 115/21 Common canister IH SCH ×2 (07:32→19:01)
[2023-04-28] MEDS ORDERED: clonazePAM PO PRN (08:57)
[2023-04-28] MEDS: Nicoderm CQ 21 MG TD SCH (09:17)
[2023-04-28] MEDS: Bactroban OINTMENT TOP SCH (09:19)
[2023-04-28] MEDS: hydroDIURIL 25 MG PO SCH (09:20)
[2023-04-28] MEDS: Klor Con PO SCH (09:20)
[2023-04-28] MEDS: TENORMIN 50 MG PO SCH ×2 (09:21→20:58)
[2023-04-28] MEDS: ZOLOFT 50 MG TABLET PO SCH (09:22)
[2023-04-28] MEDS: PROTONIX 40 MG IV IV SCH (09:23)
[2023-04-28] MEDS ORDERED: Mucinex 600MG ER Tabs PO SCH (10:00)
[2023-04-28] MEDS ORDERED: ALBUTEROL SULFATE IH SCH (10:00)
[2023-04-28] MEDS ORDERED: NON-FORMULARY ITEM (Atenolol [Atenolol] 25 MG Tablet) PO SCH (10:00)
--- NOTE | 2023-04-28 15:53 | TM.IN ---
Tele-Medicine Incident Note - Incident Note Tel-Medicine Incident Note: 04/28/23 7171 Patient admitted overnight for respiratory failure on BIPAP. The patient will continue to receive the current regimen. On auscultation, the patient still demonstrates poor air movement, and tachypnea with BIPAP interruption. Dr. Zoya doherty will be consulted (he is familiar with the patient's case). The family has arrived and discussed code status with the patient, with a request for DNR documentation. Telemedicine Encounter - Telemedicine Encounter Telemedicine Encounter: The entirety of this encounter was performed via Telemedicine"
[2023-04-28] MEDS: Acidophilus TABLET PO SCH (17:32)
[2023-04-28] MEDS: clonazePAM PO PRN (17:34)
[2023-04-28] MEDS: Zithromax 500 MG/ 250 ML NaCl Premix 500 MG/250 ML IVPB IV SCH (20:58)
[2023-04-28] MEDS: Mucinex 600MG ER Tabs PO SCH (20:59)
[2023-04-28] MEDS: SENOKOT 8.6 MG PO SCH (20:59)
[2023-04-28] MEDS: ROCEPHIN 1 Gm-D5w 50 ml Bag** 1 G/50 ML IVPB IV SCH (22:22)
[2023-04-29] MEDS: PROVENTIL 2.5 MG/3 ML NEB IH SCH (03:25)
[2023-04-29 05:51] LABS: Hematocrit 24.6 % (35-47); Hemoglobin 7.3 g/dL (12.0-16.0); Mean Cell Volume 105.6 fL (78-100); Mean Corpuscular Hemoglobin 31.3 pg (26-32); Mean Corpuscular Hgb Concent. 29.7 g/dL (32-36); Mean Platelet Volume 9.5 fL (7.5-11.0); Platelet Count 308 x10^3/uL (150-450); Red Blood Count 2.33 x10^6/uL (4.1-5.4); Red Cell Distribution Width 12.9 % (11.5-14.0); White Blood Count 7.4 x10^3/uL (4.0-10.5)
[2023-04-29 06:07] LABS: BLOOD UREA NITROGEN 16 mg/dL (7-17); CHLORIDE 88 mmol/L (98-107); Calcium 8.2 mg/dL (8.4-10.2); Creatinine 1 0.29 mg/dL (0.52-1.04); EST GLOMERULAR FILTRATION RATE > 60.0 ML/MIN; Glucose 94 mg/dL (74-106); Potassium 3.7 mmol/L (3.5-5.1); SODIUM 137 mmol/L (137-145)
[2023-04-29] MEDS: solu-MEDROL 60 MG, Sterile H2O 10 ml 2 ML IV SCH ×6 (06:08→17:49)
[2023-04-29 06:23] LABS: Carbon Dioxide 48 mmol/L (22-30)
[2023-04-29 06:24] LABS: ANION GAP 4.7 MEQ/L (5-15)
[2023-04-29] MEDS: PATIENT OWN MEDICATION IH SCH ×2 (08:18→18:33)
[2023-04-29] MEDS: Spiriva 18 Mcg/Cap Inhaler IH SCH (08:18)
[2023-04-29] MEDS: PROTONIX 40 MG IV IV SCH (09:06)
[2023-04-29] MEDS: Mucinex 600MG ER Tabs PO SCH ×2 (09:06→21:17)
[2023-04-29] MEDS: Acidophilus TABLET PO SCH (09:06)
[2023-04-29] MEDS: ZOLOFT 50 MG TABLET PO SCH (09:07)
[2023-04-29] MEDS: hydroDIURIL 25 MG PO SCH (09:07)
[2023-04-29] MEDS: TENORMIN 50 MG PO SCH ×2 (09:07→21:17)
[2023-04-29] MEDS: Bactroban OINTMENT TOP SCH (09:08)
[2023-04-29] MEDS: Nicoderm CQ 21 MG TD SCH (09:08)
[2023-04-29] MEDS: Klor Con PO SCH (09:08)
[2023-04-29] MEDS: clonazePAM PO PRN ×2 (09:12→22:10)
[2023-04-29] MEDS ORDERED: Miralax Powder 17GM PACKET PO PRN (10:59)
--- NOTE | 2023-04-29 11:30 | PCM.NOTE ---
Date and Time: 04/29/23 1127 Subjective Assessment: Dyspnea slightly improved. Patient requested oxygen flow rate to be increased to 5LPM even though saturations were steady at 4LPM. Mild constipation reported. 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, normal mood/affect, nml cerebellar function Skin Exam: normal color Wound Assessment: Skin/Wound Assessment Wound/Incision Assessment Start: 04/28/23 03:25 Text: Status: Active Freq: Q6H Protocol: Document 04/29/23 09:00 BHARAT (Rec: 04/29/23 09:21 BHARAT [id number]) Wound/Incision Assessment Left Ischial Tuberosity Wound Assessment Shift Assessment Wound Type Pressure Ulcer Wound Stage Unstageable Drainage Amount Minimal Drainage Description Serosanguineous Drainage Odor None/Absent General Appearance Blackened Length (cm) (cm) 7 Width (cm) (cm) 7 Wound Bed Greatest Portion Black (Eschar) Wound Bed Lesser Portion Dusky Red % Eschar (Black) 100 Surrounding Tissue Dark Red Primary Dressing none Right Ischial Tuberosity Wound Assessment Shift Assessment Wound Type Pressure Ulcer Wound Stage Unstageable Dressing Status Changed Drainage Amount None Drainage Odor None/Absent General Appearance Blackened Length (cm) (cm) 5 Width (cm) (cm) 5 Wound Bed Greatest Portion Black (Eschar) Wound Bed Lesser Portion Dusky Red % Eschar (Black) 100 Surrounding Tissue Dark Red Primary Dressing mepilex Left Foot Wound Assessment Shift Assessment Wound Stage Non Pressure Wound Dressing Status Dry & Intact,Changed Drainage Description Other Drainage Odor None/Absent General Appearance Reddened Length (cm) (cm) 3 Width (cm) (cm) 3 Depth (cm) (cm) 0.1 Wound Bed Greatest Portion Red (Granulation),Dusky Red Surrounding Tissue [place],Edematous Primary Dressing mepilex border Wound Photo Photo Taken Yes Date: 04/28/23 Time: 04:00 Distance from Wound: 12 inches Eye Exam: PERRL, EOMI, eyes nml inspection Ears, Nose, Throat Exam: normal ENT inspection Neck Exam: normal inspection, non-tender, supple, full range of motion Respiratory Exam: other (decreased breath sounds. Tachypnea noted without BIPAP on) Cardiovascular Exam: regular rate/rhythm, normal heart sounds Gastrointestinal/Abdomen Exam: soft, normal bowel sounds Extremity Exam: normal inspection, normal range of motion Back Exam: normal range of motion OBJECTIVE DATA Vital Signs: Vital Signs - 24 hr Temp Pulse Resp BP Pulse Ox 04/29/23 08:31 90 22 97 04/29/23 07:46 97.7 F 82 17 112/56 99 04/29/23 03:43 98.4 F 94 H 22 106/52 99 04/29/23 00:00 92 H 15 98 04/28/23 23:08 86 20 100 04/28/23 19:54 97.2 F 94 H 30 H 128/60 97 04/28/23 19:01 90 22 97 04/28/23 16:00 96.9 F 93 H 22 113/55 99 04/28/23 12:00 96.8 F 99 H 20 141/66 100 Pain Assessment - Last Documented Pain Intensity 0 Intake and Output: Intake & Output 04/26/23 04/27/23 04/28/23 04/29/23 11:59 11:59 11:59 11:59 Intake Total 60 660 Output Total 950 Balance 60 -290 Weight 39 kg 38 kg Lab Results: Lab Results-Last 24 Hours 04/28/23 04/28/23 04/28/23 Range/Units 11:40 16:50 20:51 WBC (4.0-10.5) x10^3/uL RBC (4.1-5.4) x10^6/uL Hgb (12.0-16.0) g/dL Hct (35-47) % MCV (78-100) fL MCH (26-32) pg MCHC (32-36) g/dL RDW (11.5-14.0) % Plt Count (150-450) x10^3/uL MPV (7.5-11.0) fL Sodium (137-145) mmol/L Potassium (3.5-5.1) mmol/L Chloride (98-107) mmol/L Carbon Dioxide (22-30) mmol/L Anion Gap (5-15) MEQ/L BUN (7-17) mg/dL Creatinine (0.52-1.04) mg/dL Estimated GFR ML/MIN Glucose (74-106) mg/dL POC Glucometer 166 H 118 H 184 H (74 to 106) mg/dL Calcium (8.4-10.2) mg/dL 04/29/23 04/29/23 04/29/23 Range/Units 05:30 05:30 07:24 WBC 7.4 (4.0-10.5) x10^3/uL RBC 2.33 L (4.1-5.4) x10^6/uL Hgb 7.3 L (12.0-16.0) g/dL Hct 24.6 L (35-47) % MCV 105.6 H (78-100) fL MCH 31.3 (26-32) pg MCHC 29.7 L (32-36) g/dL RDW 12.9 (11.5-14.0) % Plt Count 308 (150-450) x10^3/uL MPV 9.5 (7.5-11.0) fL Sodium 137 (137-145) mmol/L Potassium 3.7 (3.5-5.1) mmol/L Chloride 88 L (98-107) mmol/L Carbon Dioxide 48 H (22-30) mmol/L Anion Gap 4.7 L (5-15) MEQ/L BUN 16 (7-17) mg/dL Creatinine 0.29 L (0.52-1.04) mg/dL Estimated GFR > 60.0 ML/MIN Glucose 94 (74-106) mg/dL POC Glucometer 87 (74 to 106) mg/dL Calcium 8.2 L (8.4-10.2) mg/dL Radiology Exams: Radiology Procedures Category Date Time Status CHEST 1 VIEW (PORTABLE) Stat Exams 04/27/23 21:30 Completed Multi-Disciplinary Progress Notes: Multi-Disciplinary Progress Notes 04/29/23 03:16 Respiratory Note by Lori Marshall RT at bedside for scheduled neb tx. Patient declined neb tx at this time. She denies SOB at this time and is resting comfortably on 3L nasal cannula. Patient continues to decline bipap as well. Breath sounds are diminished throughout with no wheeze, crackles or rhonchi heard. SpO2 is 99% on 3L nasal cannula, HR 83, RR 18-22. Initialized on 04/29/23 03:16 - END OF NOTE Assessment/Plan (1) Hypoxia Current Visit: No Status: Acute Onset Date: ~10/21/18 Assessment & Plan: Continue current regimen with BIPAP. Dr. Lewis consulted. Code(s): R09.02 - HYPOXEMIA (2) Shortness of breath Current Visit: No Status: Acute Onset Date: ~10/21/18 Assessment & Plan: Nebs, steroids, antibiotics. Monitor oxygenation. Code(s): R06.02 - SHORTNESS OF BREATH (3) COPD (chronic obstructive pulmonary disease) Current Visit: Yes Status: Acute Onset Date: ~10/21/18 Qualifiers: COPD type: COPD with acute exacerbation Qualified Code(s): J44.1 - Chronic obstructive pulmonary disease with (acute) exacerbation Assessment & Plan: Continue current regimen. Telemedicine Encounter - Telemedicine Encounter Telemedicine Encounter: The entirety of this encounter was performed via Telemedicine"
[2023-04-29] MEDS: PROVENTIL 2.5 MG/3 ML NEB IH PRN (17:00)
[2023-04-29] MEDS ORDERED: solu-MEDROL ONE (17:14)
[2023-04-29] MEDS: Advair Hfa 115/21 Common canister IH SCH (17:56)
[2023-04-29] MEDS: SENOKOT 8.6 MG PO SCH (21:17)
[2023-04-29] MEDS: Zithromax 500 MG/ 250 ML NaCl Premix 500 MG/250 ML IVPB IV SCH (21:18)
[2023-04-29] MEDS: ROCEPHIN 1 Gm-D5w 50 ml Bag** 1 G/50 ML IVPB IV SCH (21:18)
[2023-04-30] MEDS: solu-MEDROL 60 MG, Sterile H2O 10 ml 2 ML IV SCH ×4 (01:15→05:32)
[2023-04-30 05:53] LABS: Absolute Neutrophil Ct (ANC) 6.84 x10^3/uL (1.4-6.9); BASOPHIL % 0.1 % (0.0-0.4); Basophil (Absolute #) 0.01 x10^3/uL (0-0.4); Eosinophil % 0.1 % (0.00-5.0); Eosinophil (Absolute #) 0.01 x10^3/uL (0-0.5); Hematocrit 25.5 % (35-47); Hemoglobin 7.6 g/dL (12.0-16.0); IMMATURE GRAN # 0.03 x10^3u/L (0.00-0.03); IMMATURE GRAN % 0.4 % (0.00-0.4); Lymphocyte (Absolute #) 0.59 x10^3/uL (1.0-4.6); Mean Cell Volume 105.8 fL (78-100); Mean Corpuscular Hemoglobin 31.5 pg (26-32); Mean Corpuscular Hgb Concent. 29.8 g/dL (32-36); Mean Platelet Volume 9.6 fL (7.5-11.0); Monocyte (Absolute #) 0.99 x10^3/uL (0.0-1.3); Monocytes % 11.7 % (0.0-12.0); Neutrophil % 80.7 % (36.0-66.0); Platelet Count 290 x10^3/uL (150-450); Red Blood Count 2.41 x10^6/uL (4.1-5.4); Red Cell Distribution Width 12.4 % (11.5-14.0); White Blood Count 8.5 x10^3/uL (4.0-10.5)
[2023-04-30 06:16] LABS: BLOOD UREA NITROGEN 22 mg/dL (7-17); CHLORIDE 86 mmol/L (98-107); Calcium 8.1 mg/dL (8.4-10.2); Creatinine 1 0.28 mg/dL (0.52-1.04); EST GLOMERULAR FILTRATION RATE > 60.0 ML/MIN; Glucose 101 mg/dL (74-106); Potassium 3.7 mmol/L (3.5-5.1); SODIUM 136 mmol/L (137-145)
[2023-04-30 06:36] LABS: Carbon Dioxide 50 mmol/L (22-30)
[2023-04-30 06:37] LABS: ANION GAP 3.7 MEQ/L (5-15)
[2023-04-30 07:38] LABS: Slide Review 1 YES
[2023-04-30] MEDS: Nicoderm CQ 21 MG TD SCH (08:58)
[2023-04-30] MEDS: Acidophilus TABLET PO SCH (08:59)
[2023-04-30] MEDS: Klor Con PO SCH (08:59)
[2023-04-30] MEDS: PROTONIX 40 MG IV IV SCH (08:59)
[2023-04-30] MEDS: ZOLOFT 50 MG TABLET PO SCH (09:00)
[2023-04-30] MEDS: hydroDIURIL 25 MG PO SCH (09:01)
[2023-04-30] MEDS: TENORMIN 50 MG PO SCH ×2 (09:01→21:53)
[2023-04-30] MEDS: PATIENT OWN MEDICATION IH SCH ×2 (09:03→20:26)
[2023-04-30] MEDS: Spiriva 18 Mcg/Cap Inhaler IH SCH (09:03)
[2023-04-30] MEDS: Mucinex 600MG ER Tabs PO SCH ×2 (09:03→21:54)
[2023-04-30] MEDS: Bactroban OINTMENT TOP SCH (09:15)
[2023-04-30 11:03] LABS: A-aADO2 33; ABG HEMOGLOBIN 8.7; ABG POTASSIUM 4.1 (3.5-5.1); ARTERIAL BLD GAS O2 SATURATION 98.2 % (95-100); ARTERIAL BLOOD GAS FIO2 28 %; ARTERIAL BLOOD GAS PO2 78 mmHg (75-100); ARTERIAL BLOOD GAS pH 7.51 (7.35-7.45); HCO3- 56.7 (22-28); HGB O2 SAT 96.5 g/dF (94-100); Methhemoglobin 0.8 % (1.4-1.5)
[2023-04-30 11:04] LABS: ABG SITE RIGHT BRACHIAL; ARTERIAL BLOOD GAS PCO2 71 mmHg (35-45)
--- NOTE | 2023-04-30 12:13 | PCM.NOTE ---
Date and Time: 04/30/23 1208 Subjective Assessment: Patient had extensive discussion about underlying chronic lung disease, her acute condition, and code status. She feels better but did not use BIPAP yesterday, and she has not been out of bed ambulating thus far. Dyspnea is stable today but improved relative to presentation. 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, normal mood/affect, nml cerebellar function Skin Exam: normal color Wound Assessment: Skin/Wound Assessment Wound/Incision Assessment Start: 04/28/23 03:25 Text: Status: Active Freq: Q6H Protocol: Document 04/30/23 09:00 RB (Rec: 04/30/23 09:48 RB [id number]) Wound/Incision Assessment Left Ischial Tuberosity Wound Assessment Shift Assessment Wound Type Pressure Ulcer Wound Stage Unstageable Drainage Amount Minimal Drainage Description Serosanguineous Drainage Odor None/Absent General Appearance Blackened Length (cm) (cm) 7 Width (cm) (cm) 7 Wound Bed Greatest Portion Black (Eschar) Wound Bed Lesser Portion Dusky Red % Eschar (Black) 100 Surrounding Tissue Dark Red Primary Dressing none Right Ischial Tuberosity Wound Assessment Shift Assessment Wound Type Pressure Ulcer Wound Stage Unstageable Dressing Status Changed Drainage Amount None Drainage Odor None/Absent General Appearance Blackened Length (cm) (cm) 5 Width (cm) (cm) 5 Wound Bed Greatest Portion Black (Eschar) Wound Bed Lesser Portion Dusky Red % Eschar (Black) 100 Surrounding Tissue Dark Red Primary Dressing mepilex Left Foot Wound Assessment Shift Assessment Wound Stage Non Pressure Wound Dressing Status Dry & Intact,Changed Drainage Description Other Drainage Odor None/Absent General Appearance Reddened Length (cm) (cm) 3 Width (cm) (cm) 3 Depth (cm) (cm) 0.1 Wound Bed Greatest Portion Red (Granulation),Dusky Red Surrounding Tissue [place],Edematous Primary Dressing mepilex border Wound Photo Photo Taken Yes Date: 04/28/23 Time: 04:00 Distance from Wound: 12 inches Eye Exam: PERRL, EOMI, eyes nml inspection Ears, Nose, Throat Exam: normal ENT inspection Neck Exam: normal inspection, non-tender, supple, full range of motion Respiratory Exam: other (poor air flow but no wheezing auscultated) Cardiovascular Exam: regular rate/rhythm, edema (edema is improving) Gastrointestinal/Abdomen Exam: soft, normal bowel sounds Extremity Exam: swelling Back Exam: normal range of motion OBJECTIVE DATA Vital Signs: Vital Signs - 24 hr Temp Pulse Resp BP BP Pulse Ox 04/30/23 11:43 98.7 F 78 29 H 96/46 93 L 04/30/23 09:05 81 28 H 97 04/30/23 09:01 83 111/52 04/30/23 07:45 97.5 F 83 26 H 113/57 97 04/30/23 04:00 98.0 F 84 20 108/56 99 04/29/23 23:26 97.1 F 89 24 105/55 99 04/29/23 21:17 89 111/52 04/29/23 19:47 98.3 F 89 25 H 111/52 99 04/29/23 18:33 88 22 97 04/29/23 17:03 83 24 100 04/29/23 16:00 97.9 F 84 24 95/49 99 Pain Assessment - Last Documented Pain Intensity 0 Intake and Output: Intake & Output 04/28/23 04/29/23 04/30/23 05/01/23 11:59 11:59 11:59 11:59 Intake Total 60 660 280 Output Total 950 1600 Balance 60 -290 -1320 Weight 39 kg 38 kg 38 kg Lab Results: Lab Results-Last 24 Hours 04/29/23 04/30/23 04/30/23 Range/Units 16:14 05:35 05:35 WBC 8.5 (4.0-10.5) x10^3/uL RBC 2.41 L (4.1-5.4) x10^6/uL Hgb 7.6 L (12.0-16.0) g/dL Hct 25.5 L (35-47) % MCV 105.8 H (78-100) fL MCH 31.5 (26-32) pg MCHC 29.8 L (32-36) g/dL RDW 12.4 (11.5-14.0) % Plt Count 290 (150-450) x10^3/uL MPV 9.6 (7.5-11.0) fL Gran % 80.7 H (36.0-66.0) % Immature Gran % (Auto) 0.4 (0.00-0.4) % Nucleat RBC Rel Count 0.0 (0.00-0.1) % Eos # (Auto) 0.01 (0-0.5) x10^3/uL Immature Gran # (Auto) 0.03 (0.00-0.03) x10^3u/L Absolute Lymphs (auto) 0.59 L (1.0-4.6) x10^3/uL Absolute Monos (auto) 0.99 (0.0-1.3) x10^3/uL Absolute Nucleated RBC 0.00 (0.00-0.01) x10^3u/L Lymphocytes % 7.0 L (24.0-44.0) % Monocytes % 11.7 (0.0-12.0) % Eosinophils % 0.1 (0.00-5.0) % Basophils % 0.1 (0.0-0.4) % Absolute Granulocytes 6.84 (1.4-6.9) x10^3/uL Basophils # 0.01 (0-0.4) x10^3/uL Puncture Site pCO2 (35-45) mmHg pO2 (75-100) mmHg Base Excess (-2.0-2.0) O2 Saturation (94-100) g/dF ABG pH (7.35-7.45) ABG HCO3 (22-28) ABG O2 Sat (Measured) (95-100) % Sukumar Test A-a Gradient a/A Ratio Hemoglobin Carboxyhemoglobin (0.0-6.9) % THgb Methemoglobin (1.4-1.5) % Temperature C POC O2 Flow Rate % Sodium 136 L (137-145) mmol/L Potassium 3.7 (3.5-5.1) mmol/L Chloride 86 L (98-107) mmol/L Carbon Dioxide 50 H (22-30) mmol/L Anion Gap 3.7 L (5-15) MEQ/L BUN 22 H (7-17) mg/dL Creatinine 0.28 L (0.52-1.04) mg/dL Estimated GFR > 60.0 ML/MIN Glucose 101 (74-106) mg/dL POC Glucometer 142 H (74 to 106) mg/dL Calcium 8.1 L (8.4-10.2) mg/dL Slides for Path Review YES 04/30/23 Range/Units 10:55 WBC (4.0-10.5) x10^3/uL RBC (4.1-5.4) x10^6/uL Hgb (12.0-16.0) g/dL Hct (35-47) % MCV (78-100) fL MCH (26-32) pg MCHC (32-36) g/dL RDW (11.5-14.0) % Plt Count (150-450) x10^3/uL MPV (7.5-11.0) fL Gran % (36.0-66.0) % Immature Gran % (Auto) (0.00-0.4) % Nucleat RBC Rel Count (0.00-0.1) % Eos # (Auto) (0-0.5) x10^3/uL Immature Gran # (Auto) (0.00-0.03) x10^3u/L Absolute Lymphs (auto) (1.0-4.6) x10^3/uL Absolute Monos (auto) (0.0-1.3) x10^3/uL Absolute Nucleated RBC (0.00-0.01) x10^3u/L Lymphocytes % (24.0-44.0) % Monocytes % (0.0-12.0) % Eosinophils % (0.00-5.0) % Basophils % (0.0-0.4) % Absolute Granulocytes (1.4-6.9) x10^3/uL Basophils # (0-0.4) x10^3/uL Puncture Site RIGHT BRACHIAL pCO2 71 H* (35-45) mmHg pO2 78 (75-100) mmHg Base Excess 30.0 H (-2.0-2.0) O2 Saturation 96.5 (94-100) g/dF ABG pH 7.51 H (7.35-7.45) ABG HCO3 56.7 H* (22-28) ABG O2 Sat (Measured) 98.2 (95-100) % Sukumar Test NOT APPLICABLE A-a Gradient 33 a/A Ratio 0.70 Hemoglobin 8.7 Carboxyhemoglobin 1.0 (0.0-6.9) % THgb Methemoglobin 0.8 L (1.4-1.5) % Temperature 37.0 C POC O2 Flow Rate 28 % Sodium (137-145) mmol/L Potassium 4.1 (3.5-5.1) mmol/L Chloride (98-107) mmol/L Carbon Dioxide (22-30) mmol/L Anion Gap (5-15) MEQ/L BUN (7-17) mg/dL Creatinine (0.52-1.04) mg/dL Estimated GFR ML/MIN Glucose (74-106) mg/dL POC Glucometer (74 to 106) mg/dL Calcium (8.4-10.2) mg/dL Slides for Path Review Multi-Disciplinary Progress Notes: Multi-Disciplinary Progress Notes 04/29/23 21:28 Respiratory Note by Lori Marshall RT called to patient bedside at patient request. Pt states that her nose is stuffed up and requests that the O2 flow be increased. Pt's SpO2 on 4L nasal cannula is 98%, heart rate is 86, RR is 24. No change in breath sounds. Breath sounds are diminished throughout. RT educated patient on risks of increasing FiO2 unnecessarily. RT suggested to add humidity to nasal cannula, pt refused. RT suggested patient go back on bipap for increased SOB, pt refused. RT offered neb tx, pt refused. RT advised pt that she has a PRN order for neb tx. Patient was switched to 4L oxymask at this time. SpO2 and heart rate remain WNL on oxymask. No change in RR from prior. RN at bedside at this time. RT will continue to monitor. Initialized on 04/29/23 21:28 - END OF NOTE Assessment/Plan (1) COPD (chronic obstructive pulmonary disease) Current Visit: Yes Status: Acute Onset Date: ~10/21/18 Qualifiers: COPD type: COPD with acute exacerbation Qualified Code(s): J44.1 - Chronic obstructive pulmonary disease with (acute) exacerbation Assessment & Plan: Hypercapnea is persistent on repeat ABG. Metabolic alkalosis noted. Dr. Lewis contacted and recommendation was made to decrease the steroid dose. Could consider Diamox but will monitor bicarbonate trend. (2) Hypoxia Current Visit: No Status: Acute Onset Date: ~10/21/18 Assessment & Plan: Steady on 2L O2. Code(s): R09.02 - HYPOXEMIA (3) Shortness of breath Current Visit: No Status: Acute Onset Date: ~10/21/18 Assessment & Plan: Continue current regimen with reduced steroid dosing Code(s): R06.02 - SHORTNESS OF BREATH Telemedicine Encounter - Telemedicine Encounter Telemedicine Encounter: The entirety of this encounter was performed via Telemedicine"
[2023-04-30] MEDS: clonazePAM PO PRN ×3 (15:21→22:30)
[2023-04-30] MEDS ORDERED: PATIENT OWN MEDICATION IH PRN (17:41)
[2023-04-30] MEDS: solu-MEDROL 40 MG, Sterile H2O 10 ml 1 ML IV SCH ×2 (17:49)
[2023-04-30] MEDS ORDERED: solu-MEDROL 40 MG, Sterile H2O 10 ml 2 ML IV SCH ×2 (18:00)
[2023-04-30] MEDS: PROVENTIL 2.5 MG/3 ML NEB IH PRN (20:25)
[2023-04-30] MEDS: SENOKOT 8.6 MG PO SCH (21:55)
[2023-04-30] MEDS: ROCEPHIN 1 Gm-D5w 50 ml Bag** 1 G/50 ML IVPB IV SCH (22:09)
[2023-04-30] MEDS: Zithromax 500 MG/ 250 ML NaCl Premix 500 MG/250 ML IVPB IV SCH (22:09)
[2023-05-01 04:55] LABS: BLOOD UREA NITROGEN 19 mg/dL (7-17); CHLORIDE 86 mmol/L (98-107); Calcium 8.1 mg/dL (8.4-10.2); Creatinine 1 0.28 mg/dL (0.52-1.04); EST GLOMERULAR FILTRATION RATE > 60.0 ML/MIN; Glucose 91 mg/dL (74-106); Potassium 3.9 mmol/L (3.5-5.1); SODIUM 134 mmol/L (137-145)
[2023-05-01 05:27] LABS: Carbon Dioxide 46 mmol/L (22-30)
[2023-05-01 05:29] LABS: ANION GAP 5.9 MEQ/L (5-15)
[2023-05-01] MEDS: solu-MEDROL 40 MG, Sterile H2O 10 ml 1 ML IV SCH ×2 (06:02)
[2023-05-01] MEDS ORDERED: Sterile H2O 10 ml IJ ONE (06:10)
[2023-05-01] MEDS: PATIENT OWN MEDICATION IH SCH ×2 (07:18→19:55)
[2023-05-01] MEDS: PROVENTIL 2.5 MG/3 ML NEB IH PRN (07:18)
[2023-05-01] MEDS: Spiriva 18 Mcg/Cap Inhaler IH SCH (07:19)
[2023-05-01] MEDS: Mucinex 600MG ER Tabs PO SCH ×2 (09:03→23:56)
[2023-05-01] MEDS: hydroDIURIL 25 MG PO SCH (09:03)
[2023-05-01] MEDS: TENORMIN 50 MG PO SCH (09:04)
[2023-05-01] MEDS: Acidophilus TABLET PO SCH (09:04)
[2023-05-01] MEDS: ZOLOFT 50 MG TABLET PO SCH (09:04)
[2023-05-01] MEDS: Protonix 40MG Tablet PO SCH (09:04)
[2023-05-01] MEDS: Klor Con PO SCH (09:04)
[2023-05-01] MEDS: Bactroban OINTMENT TOP SCH (09:05)
[2023-05-01] MEDS: Nicoderm CQ 21 MG TD SCH (09:05)
[2023-05-01] MEDS: clonazePAM PO PRN ×3 (10:20→21:14)
--- NOTE | 2023-05-01 13:57 | PCM.NOTE ---
Date and Time: 05/01/23 1351 Subjective Assessment: Dyspnea is persistent. 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, normal mood/affect, nml cerebellar function Skin Exam: normal color Wound Assessment: Skin/Wound Assessment Wound/Incision Assessment Start: 04/28/23 03:25 Text: Status: Active Freq: Q6H Protocol: Document 05/01/23 08:00 (Rec: 05/01/23 08:31 [id number]) Wound/Incision Assessment Left Ischial Tuberosity Wound Assessment Shift Assessment Wound Type redness Wound Stage Unstageable Drainage Amount None Drainage Odor None/Absent General Appearance Reddened Length (cm) (cm) 7 Width (cm) (cm) 7 Wound Bed Lesser Portion Red (Granulation) Surrounding Tissue [place] Comment Dressing in place- C/D/I Right Ischial Tuberosity Wound Assessment Shift Assessment Wound Type Pressure Ulcer Wound Stage Unstageable Dressing Status Dry & Intact,Changed Drainage Odor None/Absent General Appearance Blackened Length (cm) (cm) 5 Width (cm) (cm) 5 Wound Bed Greatest Portion Black (Eschar) Wound Bed Lesser Portion Dusky Red Surrounding Tissue Dark Red Primary Dressing mepilex Comment Dressing in place- C/D/I Left Foot Wound Assessment Shift Assessment Wound Type Pressure Ulcer Wound Stage Unstageable Dressing Status Dry & Intact,Changed Drainage Amount None Drainage Description Other Drainage Odor None/Absent General Appearance Reddened Length (cm) (cm) 3 Width (cm) (cm) 3 Wound Bed Greatest Portion Red (Granulation),Dusky Red Surrounding Tissue [place],Edematous Wound Photo Photo Taken No Comment: pictures in chart Eye Exam: PERRL, EOMI, eyes nml inspection Ears, Nose, Throat Exam: normal ENT inspection Neck Exam: normal inspection, non-tender, supple, full range of motion Respiratory Exam: other (Diminished air movement) Cardiovascular Exam: regular rate/rhythm, normal heart sounds, edema Gastrointestinal/Abdomen Exam: soft, normal bowel sounds Extremity Exam: pedal edema, swelling Back Exam: normal range of motion OBJECTIVE DATA Vital Signs: Vital Signs - 24 hr Temp Pulse Resp BP Pulse Ox 05/01/23 12:00 97.5 F 86 25 H 100/50 96 05/01/23 07:26 97.3 F 115 H 25 H 101/51 99 05/01/23 07:20 76 22 98 05/01/23 03:58 97.5 F 74 21 108/53 99 05/01/23 00:21 97.9 F 102 H 25 H 125/61 97 04/30/23 23:55 99.1 F 96 H 22 106/59 96 04/30/23 20:29 96 H 22 96 04/30/23 19:41 99.1 F 85 20 106/59 95 04/30/23 17:43 88 28 H 96 04/30/23 16:00 98.2 F 86 29 H 118/55 96 Pain Assessment - Last Documented Pain Intensity 0 Intake and Output: Intake & Output 04/29/23 04/30/23 05/01/23 05/02/23 11:59 11:59 11:59 11:59 Intake Total 898 244 8574 60 Output Total 950 1600 1500 Balance -290 -1320 340 60 Weight 38 kg 38 kg Lab Results: Lab Results-Last 24 Hours 05/01/23 Range/Units 04:15 Sodium 134 L (137-145) mmol/L Potassium 3.9 (3.5-5.1) mmol/L Chloride 86 L (98-107) mmol/L Carbon Dioxide 46 H (22-30) mmol/L Anion Gap 5.9 (5-15) MEQ/L BUN 19 H (7-17) mg/dL Creatinine 0.28 L (0.52-1.04) mg/dL Estimated GFR > 60.0 ML/MIN Glucose 91 (74-106) mg/dL Calcium 8.1 L (8.4-10.2) mg/dL Multi-Disciplinary Progress Notes: Multi-Disciplinary Progress Notes 05/01/23 13:36 Physical Therapy Note by Teo(L#[id number]),Arti ATTEMPTED TO SEE PT. FOR FUNCTIONAL MOBILITY TRAINING TODAY. STATES SHE IS FEELING ANXIOUS. PT. AGREED TO GET UP OUT OF BED IN TO RECLINER BUT STATED SHE NEEDED DOES OF CLONAPIN FIRST AND THEN WOULD NEED 30 MINS FOR IT TO TAKE EFFECT. PT. REPORTED SHE WOULD NOT BE ABLE TO WB ON HER LES AND WE WOULD HAVE TO LIFT HER. P.T. HAD CONFLICT W/ OP AT THAT TIME SO SHE TRANSFERRED W/ ASSIST FOR CNAS. PT. HAS POOR REHAB PROGNOSIS D/T END-STAGE COPD AND POOR NUTRITION MINIMAL PARTICIPATION. RECOMMEND ECF PLACEMENT PT. NOT ABLE TO CARE FOR HERSELF AT HOME, BUT PT. IS NOT SURE SHE WANTS TO D/C TO ECF. UM TO SPEAK W/ DAUGHTER WELL. WILL MONITOR, BUT PT. NOT A STRONG CANDIDATE FOR SKILLED INTERVENTION AT THIS TIME. Initialized on 05/01/23 13:36 - END OF NOTE Assessment/Plan (1) COPD (chronic obstructive pulmonary disease) Current Visit: Yes Status: Acute Onset Date: ~10/21/18 Qualifiers: COPD type: COPD with acute exacerbation Qualified Code(s): J44.1 - Chronic obstructive pulmonary disease with (acute) exacerbation Assessment & Plan: Confirming decrease in steroid dose. Dr. Lewis evaluation is pending. Patient may need to have placement considered. (2) Hypoxia Current Visit: No Status: Acute Onset Date: ~10/21/18 Assessment & Plan: Continue oxygen. Code(s): R09.02 - HYPOXEMIA (3) Shortness of breath Current Visit: No Status: Acute Onset Date: ~10/21/18 Assessment & Plan: Persistent but improving. Code(s): R06.02 - SHORTNESS OF BREATH Telemedicine Encounter - Telemedicine Encounter Telemedicine Encounter: The entirety of this encounter was performed via Telemedicine"
[2023-05-01] MEDS: Lidoderm Patch 5% TOP SCH (14:26)
[2023-05-01] MEDS: solu-MEDROL IV SCH (17:41)
[2023-05-01] MEDS ORDERED: solu-MEDROL 20 MG, Sterile H2O 10 ml 1 ML IV SCH ×2 (18:00)
[2023-05-01] MEDS: ROCEPHIN 1 Gm-D5w 50 ml Bag** 1 G/50 ML IVPB IV SCH (23:50)
[2023-05-01] MEDS: Zithromax 500 MG/ 250 ML NaCl Premix 500 MG/250 ML IVPB IV SCH (23:55)
[2023-05-01] MEDS: SENOKOT 8.6 MG PO SCH (23:56)
[2023-05-02] MEDS: TENORMIN 50 MG PO SCH ×3 (00:22→21:41)
[2023-05-02] MEDS: PROVENTIL 2.5 MG/3 ML NEB IH PRN ×4 (04:16→22:30)
[2023-05-02] MEDS ORDERED: solu-MEDROL ONE (06:37)
[2023-05-02] MEDS ORDERED: Sterile H2O 10 ml IJ ONE (06:38)
[2023-05-02] MEDS: solu-MEDROL IV SCH (06:44)
--- NOTE | 2023-05-02 09:01 | XRAY ---
Indication: COPD. Comparison: April 27, 2023 Portable chest again demonstrates COPD. New moderate left lower lobe consolidating infiltrate/atelectasis/effusion. Remaining heart and right lung unremarkable.
[2023-05-02] MEDS: clonazePAM PO PRN ×3 (10:16→21:40)
[2023-05-02] MEDS: Klor Con PO SCH (10:21)
[2023-05-02] MEDS: Mucinex 600MG ER Tabs PO SCH ×2 (10:21→21:42)
[2023-05-02] MEDS: DELTASONE 20 MG PO SCH (10:21)
[2023-05-02] MEDS: ZOLOFT 50 MG TABLET PO SCH (10:22)
[2023-05-02] MEDS: Nicoderm CQ 21 MG TD SCH (10:22)
[2023-05-02] MEDS: hydroDIURIL 25 MG PO SCH (10:22)
[2023-05-02] MEDS: Protonix 40MG Tablet PO SCH (10:22)
[2023-05-02] MEDS: Acidophilus TABLET PO SCH (10:22)
[2023-05-02] MEDS: Spiriva 18 Mcg/Cap Inhaler IH SCH (10:44)
[2023-05-02] MEDS: PATIENT OWN MEDICATION IH SCH ×2 (10:45→18:12)
[2023-05-02] MEDS: Bactroban OINTMENT TOP SCH (13:32)
[2023-05-02] MEDS: Lidoderm Patch 5% TOP SCH ×2 (13:32→16:23)
--- NOTE | 2023-05-02 13:37 | CONS ---
CONSULT DATE: 05/01/2023 HISTORY: Kayla Corbin is a 72-year-old female who is a current every day smoker. She has past medical history of chronic obstructive pulmonary disease with frequent exacerbations, osteoporosis, anxiety disorder, cellulitis to the left lower limb, urinary tract infection recurrent and tachycardia with frequent chest pain. Upon evaluation, the patient is sitting up in bed eating dinner in no acute respiratory distress. The patient wears continuous O2 at home at 2 liters continuously. She presented to the emergency room with complaints of worsening shortness of breath, dyspnea on exertion and cough for several days. All imaging studies and labs were noted. The patient was admitted for further management. PHYSICAL EXAMINATION: GENERAL APPEARANCE: Awake, alert, oriented. The patient is cachectic with decreased oral intake. CVS: Regular rate and rhythm. RESPIRATORY: Clear. Breath sounds diminished, wears 2 liters O2 continuous. ABDOMEN: Soft. : Urinary within normal limits. EXTREMITIES: Bilateral lower extremities chronic edema and cellulitis to left foot. NEUROLOGIC: Alert, oriented. LABORATORY DATA AND TESTS: Chest x-ray is noted with repeat imaging ordered for 05/02/2023. The patient has a BiPAP on standby. ASSESSMENT: 1) Acute on chronic respiratory failure. 2) Exacerbation of chronic obstructive pulmonary disease. PLAN: Continue 2 liters O2 per nasal cannula as per home, improvement in shortness of breath, dyspnea on exertion with reduced cough. Decrease Solu-Medrol to 20 mg IV every 12 hours, start prednisone 20 mg p.o. daily tomorrow. There is no indication for Diamox at this time as currently discussed with the Hospitalist. The patient is concerned that she will need assistance at home once she returns as her family does not have the ability to help her greatly. However, she was previously referred to [facility] in [facility] for physical therapy and she left [place]. RECOMMENDATIONS: For case management to assist for any additional services available. The patient was much improved from pulmonary standpoint. She originally was given large doses of steroids which caused her to metabolically alkalotic inducing a respiratory acidosis, however she has significantly improved and is stable from pulmonary standpoint. Recommendation to continue all current care and follow up in one to two weeks after discharge. As dictated by DEBORA Peters.
--- NOTE | 2023-05-02 13:54 | PCM.NOTE ---
Date and Time: 05/02/23 1350 Subjective Assessment: Patient reports persistent dyspnea. She is amenable to potential placement upon further discussion. 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, normal mood/affect, nml cerebellar function Skin Exam: normal color Wound Assessment: Skin/Wound Assessment Wound/Incision Assessment Start: 04/28/23 03:25 Text: Status: Active Freq: Q6H Protocol: Document 05/02/23 02:00 RS (Rec: 05/02/23 03:14 [id number]) Wound/Incision Assessment Left Ischial Tuberosity Wound Assessment Shift Assessment Wound Type redness Wound Stage Unstageable Drainage Amount None Drainage Odor None/Absent General Appearance Reddened Length (cm) (cm) 7 Width (cm) (cm) 7 Wound Bed Lesser Portion Red (Granulation) Surrounding Tissue [place] Comment Dressing in place- C/D/I Right Ischial Tuberosity Wound Assessment Shift Assessment Wound Type Pressure Ulcer Wound Stage Unstageable Dressing Status Dry & Intact,Changed Drainage Odor None/Absent General Appearance Blackened Length (cm) (cm) 5 Width (cm) (cm) 5 Wound Bed Greatest Portion Black (Eschar) Wound Bed Lesser Portion Dusky Red Surrounding Tissue Dark Red Primary Dressing mepilex Comment Dressing in place- C/D/I Left Foot Wound Assessment Shift Assessment Wound Type Pressure Ulcer Wound Stage Unstageable Dressing Status Dry & Intact,Changed Drainage Amount None Drainage Description Other Drainage Odor None/Absent General Appearance Reddened Length (cm) (cm) 3 Width (cm) (cm) 3 Wound Bed Greatest Portion Red (Granulation),Dusky Red Surrounding Tissue [place],Edematous Wound Photo Photo Taken No Eye Exam: PERRL, EOMI, eyes nml inspection Ears, Nose, Throat Exam: normal ENT inspection Neck Exam: normal inspection, non-tender, supple, full range of motion Respiratory Exam: diminished breath sounds, other (decreased breath sounds at the bases (L>R). Poor air movement.) Gastrointestinal/Abdomen Exam: soft, normal bowel sounds Extremity Exam: normal range of motion, pedal edema Back Exam: normal range of motion OBJECTIVE DATA Vital Signs: Vital Signs - 24 hr Temp Pulse Resp BP Pulse Ox 05/02/23 11:56 97.5 F 84 17 105/52 95 05/02/23 10:00 84 18 99 05/02/23 07:01 97.8 F 80 17 109/54 99 05/02/23 04:16 100 H 24 93 L 05/02/23 04:00 97.1 F 92 H 36 H 137/63 96 05/01/23 19:56 86 24 96 05/01/23 19:13 97.5 F 96 H 38 H 163/72 95 05/01/23 16:00 97.5 F 87 31 H 104/49 Pain Assessment - Last Documented Pain Intensity 0 Intake and Output: Intake & Output 04/30/23 05/01/23 05/02/23 05/03/23 11:59 11:59 11:59 11:59 Intake Total 280 1840 660 100 Output Total 1600 1500 1050 Balance -1320 340 -390 100 Weight 38 kg Radiology Exams: Radiology Procedures Category Date Time Status CHEST 1 VIEW (PORTABLE) Routine Exams 05/02/23 04:00 Completed Multi-Disciplinary Progress Notes: Multi-Disciplinary Progress Notes 05/02/23 12:13 Case Management Note by Ksenia Gaviria Addendum entered by Ksenia Gaviria 05/02/23 12:13: THEY WILL NEED NOTIFIED AT TIME OF DC AT [phone]. THEY WILL NEED FAXED THE DC INSTRUCTIONS, DC MED LIST AND DC SUMMARY ( IF AVAILABLE) TO [phone] Original Note: [facility] NOTIFIED PATIENT INPT Initialized on 05/02/23 12:13 - END OF NOTE 05/02/23 12:08 Case Management Note by Ksenia Gaviria WHEN S/W DAUGHTER VIKTORIA- SHE STATED APS IS AT PATIENT'S HOUSE AT THIS TIME. I CALLED AND S/W [facility] APS WORKER YUSRA- SHE WAS AT PATIENT'S HOME TODAY. SHE WAS UPDATED ON HOPEFUL PLANS FOR PATIENT TO GO TO [facility] AT TIME OF DC. SHE REQUESTS UPDATED AT TIME OF DC AT [phone]. SHE ALSO STATED TO REACH OUT IF ANYTHING ELSE IS NEEDED. Initialized on 05/02/23 12:08 - END OF NOTE 05/02/23 12:03 Case Management Note by Ksenia Gaviria S/W PATIENT ABOUT PLANS AT DC. JBEARD ALSO PRESENT. PATIENT AGREES SHE IS UNABLE TO CARE FOR HERSELF AT HOME AT THIS TIME. SHE IS AGREEABLE TO GO TO [place]. WE DISCUSSED FACILITY OPTIONS WELL. PATIENT WOULD LIKE REFERRAL SENT TO [facility]. SHE UNDERSTANDS THAT THIS WILL LIKELY NEED TO BE UNDER MEDICAID SHE IS NOT CONSIDERED REHABABLE AT THIS TIME. PATIENT REPORTS SHE IS DETERMINED, HOWEVER, TO GET BETTER AND RETURN HOME EVENTUALLY. PATIENT ENCOURAGED TO KEEP THAT MINDSET AND WORK HARD AT THE [place] TO GET STRONGER SO SHE CAN EVENTUALLY WORK ON RETURNING HOME IF SHE SUCCEEDS. PATIENT AGAIN UNDERSTANDS SHE NEEDS 24 HR CARE AT THIS TIME. REFERRAL CALLED AND FAXED TO [facility]. THEY WILL SUBMIT FOR AUTH THEY WILL HAVE TO BE DENIED FROM [facility] BEFORE THAN CAN WORK ON THE MEDICAID SWITCH OVER. CALLED AND NOTIFIED DAUGHTER VIKTORIA- SHE VERIFIED UNDERSTANDING AND AGREED WITH POC Initialized on 05/02/23 12:03 - END OF NOTE 05/01/23 14:24 Case Management Note by Lorna Wang S/W PATIENT ABOUT DC NEEDS. PATIENT DOES NOT WANT TO GO TO FACILITY BUT SAYS SHE IS NOT REFUSING. IF SHE GOES SHE SAYS IT WILL ONLY BE FOR SHORT TIME AND WANTS TO GO SOMEWHERE CLOSE TO DR LEWIS BUT WOULD NOT COMMIT TO A FACILITY WITHOUT TALKING TO HER DAUGHTER. WANTS TO MAKE SURE SHE CAN WORK ON HER "PAPER" WHERE EVER SHE IS AT.SAID SHE THOUGHT HER DAUGHTER MIGHT MOVE INTO HER HOUSE WITH HER IF SHE COULD FIX HER BATHROOM. PATIENT SAID SHE STILL WANTS TO GO HOME. I CALLED PATIENT DAUGHTER, VIKTORIA AND SHE STATED SHE WOULD NOT BE MOVING IN WITH PATIENT. DAUGHTER STATED SHE HAD 5 SMALL CHILDREN (1 AUTISTIC) AND COULD NOT DO THAT. DAUGHTER STATED THAT IF PATIENT GOES HOME, NO ONE WILL COME PICK HER UP AND TAKE HER HOME AND PEOPLE IN THE COMMUNITY WILL CALL A.P.S. BECAUSE SHE IS UNSAFE IN THE HOME. DAUGHTER AGREES THAT PLACEMENT IS THE BEST OPTION. SHE WILL SPEAK WITH PATIENT ALSO. SUGGESTED [facility] SINCE IT IS CLOSE TO DR VIEIRA AND PATIENT COULD STILL WORK ON HER "BLOG" AT FACILITY. DAUGHTER THINKS THAT IS A GOOD OPTION AND WILL TRY TO GET PATIENT TO AGREE ALSO. Initialized on 05/01/23 14:24 - END OF NOTE Assessment/Plan (1) COPD (chronic obstructive pulmonary disease) Current Visit: Yes Status: Acute Onset Date: ~10/21/18 Qualifiers: COPD type: COPD with acute exacerbation Qualified Code(s): J44.1 - Chronic obstructive pulmonary disease with (acute) exacerbation Assessment & Plan: CXR suggestive of left lower lobe pneumonia. Continue antibiotics, nebulizers and steroids. Staff is contacting Dr. Lewis to confirm consultation. (2) Hypoxia Current Visit: No Status: Acute Onset Date: ~10/21/18 Assessment & Plan: Continue to monitor oxygen needs. Code(s): R09.02 - HYPOXEMIA (3) Shortness of breath Current Visit: No Status: Acute Onset Date: ~10/21/18 Assessment & Plan: Persistent. May need placement. CM aware. Code(s): R06.02 - SHORTNESS OF BREATH Telemedicine Encounter - Telemedicine Encounter Telemedicine Encounter: The entirety of this encounter was performed via Telemedicine"
[2023-05-02] MEDS ORDERED: solu-MEDROL 20 MG, Sterile H2O 10 ml 1 ML IV SCH ×2 (18:00)
[2023-05-02] MEDS: Zithromax 500 MG/ 250 ML NaCl Premix 500 MG/250 ML IVPB IV SCH (21:42)
[2023-05-02] MEDS: ROCEPHIN 1 Gm-D5w 50 ml Bag** 1 G/50 ML IVPB IV SCH (21:42)
[2023-05-02] MEDS: SENOKOT 8.6 MG PO SCH (21:42)
[2023-05-03 04:55] LABS: BLOOD UREA NITROGEN 20 mg/dL (7-17); CHLORIDE 89 mmol/L (98-107); Calcium 8.3 mg/dL (8.4-10.2); Creatinine 1 0.33 mg/dL (0.52-1.04); EST GLOMERULAR FILTRATION RATE > 60.0 ML/MIN; Glucose 91 mg/dL (74-106); Potassium 3.8 mmol/L (3.5-5.1); SODIUM 135 mmol/L (137-145)
[2023-05-03 05:13] LABS: Carbon Dioxide 44 mmol/L (22-30)
[2023-05-03 05:14] LABS: ANION GAP 5.8 MEQ/L (5-15)
[2023-05-03] MEDS: PROVENTIL 2.5 MG/3 ML NEB IH PRN ×2 (07:32→18:56)
[2023-05-03] MEDS: PATIENT OWN MEDICATION IH SCH ×2 (07:33→18:39)
[2023-05-03] MEDS: Spiriva 18 Mcg/Cap Inhaler IH SCH (07:33)
[2023-05-03] MEDS: ZOLOFT 50 MG TABLET PO SCH (08:05)
[2023-05-03] MEDS: Protonix 40MG Tablet PO SCH (08:07)
[2023-05-03] MEDS: Mucinex 600MG ER Tabs PO SCH ×2 (08:07→21:21)
[2023-05-03] MEDS: Acidophilus TABLET PO SCH (08:07)
[2023-05-03] MEDS: Klor Con PO SCH (08:07)
[2023-05-03] MEDS: TENORMIN 50 MG PO SCH ×2 (08:08→21:21)
[2023-05-03] MEDS: DELTASONE 20 MG PO SCH (08:10)
[2023-05-03] MEDS: hydroDIURIL 25 MG PO SCH (08:10)
[2023-05-03] MEDS: clonazePAM PO PRN ×2 (08:11→14:53)
[2023-05-03] MEDS: Nicoderm CQ 21 MG TD SCH (08:18)
[2023-05-03] MEDS: Bactroban OINTMENT TOP SCH (13:13)
--- NOTE | 2023-05-03 13:20 | PCM.NOTE ---
Date and Time: 05/03/23 1315 Subjective Assessment: Dyspnea is stable. 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, normal mood/affect, nml cerebellar function Skin Exam: normal color Wound Assessment: Skin/Wound Assessment Wound/Incision Assessment Start: 04/28/23 03:25 Text: Status: Active Freq: Q6H Protocol: Document 05/03/23 08:00 HELEN (Rec: 05/03/23 09:22 HELEN [id number]) Wound/Incision Assessment Left Ischial Tuberosity Wound Assessment Shift Assessment Wound Type Pressure Ulcer Wound Stage Unstageable Dressing Status Dry & Intact Drainage Amount None Drainage Odor None/Absent Length (cm) (cm) 7 Width (cm) (cm) [address]- C/D/I Right Ischial Tuberosity Wound Assessment Shift Assessment Wound Type Pressure Ulcer Wound Stage Unstageable Dressing Status Dry & Intact Drainage Odor None/Absent Length (cm) (cm) 5 Width (cm) (cm) 5 Primary Dressing mepilex Comment Dressing in place- C/D/I Left Foot Wound Assessment Shift Assessment Wound Type Pressure Ulcer Wound Stage Unstageable Dressing Status Dry & Intact Drainage Amount None Length (cm) (cm) 3 Width (cm) (cm) 3 Wound Photo Photo Taken Yes Comment: Pictures of wounds taken upon admission Eye Exam: PERRL, EOMI, eyes nml inspection Ears, Nose, Throat Exam: normal ENT inspection Neck Exam: normal inspection, non-tender, supple, full range of motion Respiratory Exam: lungs clear, other (overall improved air movement) Cardiovascular Exam: regular rate/rhythm, normal heart sounds Extremity Exam: normal inspection, normal range of motion Back Exam: normal range of motion OBJECTIVE DATA Vital Signs: Vital Signs - 24 hr Temp Pulse Resp BP BP Pulse Ox 05/03/23 11:28 98.0 F 80 18 118/53 97 05/03/23 08:08 72 91/46 05/03/23 07:34 87 20 97 05/03/23 07:21 97.9 F 72 16 91/46 97 05/03/23 03:53 72 23 117/56 97 05/03/23 00:00 97.5 F 78 31 H 101/52 95 05/02/23 22:30 86 24 92 L 05/02/23 20:00 98.3 F 96 H 20 141/63 96 05/02/23 18:13 91 H 24 96 05/02/23 16:00 97.6 F 92 H 18 127/57 94 L 05/02/23 15:12 88 20 95 Pain Assessment - Last Documented Pain Intensity 5 Intake and Output: Intake & Output 05/01/23 05/02/23 05/03/23 05/04/23 11:59 11:59 11:59 11:59 Intake Total 1840 660 740 Output Total 1500 1050 Balance 340 -390 740 Lab Results: Lab Results-Last 24 Hours 05/03/23 Range/Units 04:20 Sodium 135 L (137-145) mmol/L Potassium 3.8 (3.5-5.1) mmol/L Chloride 89 L (98-107) mmol/L Carbon Dioxide 44 H (22-30) mmol/L Anion Gap 5.8 (5-15) MEQ/L BUN 20 H (7-17) mg/dL Creatinine 0.33 L (0.52-1.04) mg/dL Estimated GFR > 60.0 ML/MIN Glucose 91 (74-106) mg/dL Calcium 8.3 L (8.4-10.2) mg/dL Radiology Exams: Radiology Procedures Category Date Time Status CHEST 1 VIEW (PORTABLE) Routine Exams 05/02/23 04:00 Completed MODIFIED BARIUM SWALLOW EXAM Routine Exams 05/03/23 14:00 Ordered Multi-Disciplinary Progress Notes: Multi-Disciplinary Progress Notes 05/03/23 12:54 Case Management Note by Ksenia Gaviria PAPERWORK COMPLETED AT THIS TIME- NO LEVEL II REQUIRED- LOC IN REVIEW Initialized on 05/03/23 12:54 - END OF NOTE 05/03/23 12:36 Nutrition Note by Marga Lara F/u Note: House Regular diet con't with 25-50% po intake. Labs 05/03= Na 135, BUN 20, Cr 0.33, hgb 7.6, hct 25.5, mcv 105.8. goal of po intake >=50% not met consistently; goal of no weight loss not met. Note pt to d/c to NH. Pt refuses most snacks and supplements. Will con't to monitor and f/u prn. T.ALBERT Lara Initialized on 05/03/23 12:36 - END OF NOTE 05/03/23 12:17 Case Management Note by Ksenia Gaviria DAUGHTER UPDATED THAT [facility] HAS ACCEPTED- AND SHE CONTINUES TO AGREE WITH PLAN FOR TRANSITION NH AT TIME OF DC. SHE WILL NEED UPDATED AT TIME OF DC. Initialized on 05/03/23 12:17 - END OF NOTE 05/03/23 12:06 Case Management Note by Ksenia Gaviria S/W EARL AT [facility]- THEY HAVE ACCEPTED PATIENT. AUTH IS PENDING WITH [facility]. THIS WILL HAVE TO COME BACK FIRST- IF DENIED THEY REPORT PATIENT HAS TRADITIONAL MEDICAID ALREADY AND CAN COME UNDER THAT. CALLED TO UPDATE DAUGHTER- NO ANSWER LM. SPICER PAPERWORK WILL NEED DOWN ONCE PAYER SOURCE CONFIRMED Initialized on 05/03/23 12:06 - END OF NOTE Assessment/Plan (1) COPD (chronic obstructive pulmonary disease) Current Visit: Yes Status: Acute Onset Date: ~10/21/18 Qualifiers: COPD type: COPD with acute exacerbation Qualified Code(s): J44.1 - Chronic obstructive pulmonary disease with (acute) exacerbation Assessment & Plan: Discussed case with Dr. Lopez. Plan will be for a prednisone taper at discharge (20 mg daily x 5 days, then 10 mg daily x 5 days) and a repeat CXR in a few weeks. Needs placement for significant debility. (2) Hypoxia Current Visit: No Status: Acute Onset Date: ~10/21/18 Assessment & Plan: Monitor O2 needs Code(s): R09.02 - HYPOXEMIA (3) Shortness of breath Current Visit: No Status: Acute Onset Date: ~10/21/18 Assessment & Plan: Improved Code(s): R06.02 - SHORTNESS OF BREATH Telemedicine Encounter - Telemedicine Encounter Telemedicine Encounter: The entirety of this encounter was performed via Telemedicine"
[2023-05-03] MEDS ORDERED: TYLENOL 325 MG PO PRN (13:40)
[2023-05-03] MEDS: ANUSOL-HC 2.5% CREAM 30 GM TOP PRN (14:52)
[2023-05-03] MEDS: ROCEPHIN 1 Gm-D5w 50 ml Bag** 1 G/50 ML IVPB IV SCH (21:21)
[2023-05-03] MEDS: SENOKOT 8.6 MG PO SCH (21:22)
[2023-05-03] MEDS: Zithromax 500 MG/ 250 ML NaCl Premix 500 MG/250 ML IVPB IV SCH (21:44)
[2023-05-04] MEDS ORDERED: PATIENT OWN MEDICATION IH SCH ×2 (07:00→07:52)
[2023-05-04] MEDS: PATIENT OWN MEDICATION IH SCH (07:34)
[2023-05-04] MEDS: PROVENTIL 2.5 MG/3 ML NEB IH PRN (07:34)
[2023-05-04] MEDS: clonazePAM PO PRN (08:33)
[2023-05-04] MEDS: ANUSOL-HC 2.5% CREAM 30 GM TOP PRN (08:36)
--- NOTE | 2023-05-04 08:39 | XRAY ---
Indication: Dysphagia. Aspiration. Modified barium swallow study performed by the Department of speech therapy with fluoroscopic assistance provided. Patient ingested multiple consistencies of liquids and solids. Full report and recommendations will be reportedly. Approximately 83 seconds fluoroscopy used.
[2023-05-04] MEDS: Acidophilus TABLET PO SCH (10:31)
[2023-05-04] MEDS: ZOLOFT 50 MG TABLET PO SCH (10:31)
[2023-05-04] MEDS: DELTASONE 20 MG PO SCH (10:31)
[2023-05-04] MEDS: hydroDIURIL 25 MG PO SCH (10:31)
[2023-05-04] MEDS: Klor Con PO SCH (10:31)
[2023-05-04] MEDS: Mucinex 600MG ER Tabs PO SCH (10:31)
[2023-05-04] MEDS: Protonix 40MG Tablet PO SCH (10:32)
[2023-05-04] MEDS: TENORMIN 50 MG PO SCH (10:32)
[2023-05-04] MEDS: Lidoderm Patch 5% TOP SCH (10:33)
[2023-05-04] MEDS: Nicoderm CQ 21 MG TD SCH (10:33)
[2023-05-04] MEDS: Bactroban OINTMENT TOP SCH (10:41)
[2023-05-04 11:20] VITALS: TEMP 97.1
[2023-05-04 11:50] VITALS: BP 158/70; PULSE 59; RESP 17; O2SAT 90
--- NOTE | 2023-05-04 12:08 | PCM.DS ---
Discharge Summary Date of Admission: 04/29/23 10:52 Date of Discharge: 05/04/23 Admitting Physician: FAMILIA WILSON MD Consults: Consults on Case 04/28/23 11:03 Diet Consult [Nutritional Consult] ROUTINE 04/28/23 12:20 Consult Pulmonology ROUTINE Primary Care Provider: HELDER KO Allergies Allergies fluticasone furoate [From Trelegy Ellipta] Allergy (Severe, Verified 04/27/23 20:33) Shortness of Breath umeclidinium [From Trelegy Ellipta] Allergy (Severe, Verified 04/27/23 20:33) Shortness of Breath vilanterol [From Trelegy Ellipta] Allergy (Severe, Verified 04/27/23 20:33) Shortness of Breath acetaminophen [From Darvocet-N] Allergy (Intermediate, Verified 10/24/18 07:17) Rash propoxyphene napsylate [From Darvocet-N] Allergy (Intermediate, Verified 10/21/18 17:36) Rash fexofenadine [From Elis-D] Allergy (Verified 10/24/18 07:18) pseudoephedrine [From Elis-D] Allergy (Verified 10/24/18 07:18) Hospital Summary - Hospital Course Hospital Course: The patient was admitted with acute on chronic respiratory failure with COPD exacerbation. CXR also revealed evidence of a left lower lobe infiltrate, and the patient demonstrated significant dysphagia with ST eval and barium swallow. The patient was evaluated by Dr. Ko, and will be discharged to a facility with oral antibiotics and an oral steroid taper. She will have a modified diet based on ST recommendations. - Vitals & Intake/Output Vital Signs: Vital Signs Temperature 97.1 F 05/04/23 11:48 Pulse Rate 59 L 05/04/23 11:48 Respiratory Rate 17 05/04/23 11:48 Blood Pressure 158/70 05/04/23 11:48 O2 Sat by Pulse Oximetry 90 L 05/04/23 11:48 Intake & Output: Intake & Output 05/02/23 05/03/23 05/04/23 05/05/23 11:59 11:59 11:59 11:59 Intake Total 388 439 7502 Output Total 1050 1600 Balance -390 740 -250 Weight 36.2 kg - Lab Result Diagrams: 04/30/23 05:35 05/03/23 04:20 Micro Results-Entire Visit: Microbiology 04/27/23 21:45 Blood Culture - Final Blood 04/27/23 02:35 Urine Culture - Final Catherized <10K NORMAL SKIN CONCEPCIÓN PROBABLE SKIN CONTAMINANT - Radiology Exams Ordered Rad Exams-Entire Visit: Radiology Procedures Category Date Time Status MODIFIED BARIUM SWALLOW EXAM Routine Exams 05/03/23 14:00 Completed - Procedures and Test Procedures and Tests throughout Hospitalization: Therapy Orders & Screens 04/27/23 23:46 Respiratory Therapy Assessment DAILY Comment: 04/28/23 00:05 Oxygen Nasal Cannula 4 lpm Comment: 04/28/23 01:39 BiPap/CPAP ROUTINE Comment: Diagnosis: COPD with acute exacerbation 04/28/23 11:03 PT Eval & Treat (MD Order) ONCE Reason for Eval:: WOUND CARE PER PROTOCOL Diagnosis: COPD with acute exacerbation 04/28/23 20:00 Flutter Therapy UD Comment: Diagnosis: COPD with acute exacerbation 04/29/23 19:00 Respiratory MDI BID Comment: SYMBICORT 160/4.5 2PUFFS BID Diagnosis: COPD with acute exacerbation 05/02/23 13:54 Speech Therapy Eval & Treat [ST Eval & Treat (MD Order)] .as ordered Comment: Physician Instructions: Reason For Exam: Evaluate: Yes Treat: Yes Reason for Eval: LEFT LOWER LOBE PNEUMONIA. RULE OUT DYSPHAGIA AND ASPIRATION RISK. 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, normal mood/affect, nml cerebellar function Eye Exam: PERRL, EOMI, eyes nml inspection Ears, Nose, Throat Exam: normal ENT inspection Neck Exam: normal inspection, non-tender, supple, full range of motion Respiratory Exam: lungs clear, other (improved air movement) Cardiovascular Exam: regular rate/rhythm, normal heart sounds Gastrointestinal/Abdomen Exam: soft, normal bowel sounds Back Exam: normal range of motion Extremity Exam: normal range of motion, pedal edema Skin Exam: normal color Wound Assessment: Skin/Wound Assessment Wound/Incision Assessment Start: 04/28/23 03: 25 Text: Status: Active Freq: Q6H Protocol: Document 05/04/23 08:00 HELEN (Rec: 05/04/23 10:27 HELEN [id number]) Wound/Incision Assessment medical sacrum Wound Assessment New Finding Wound Stage Stage II Dressing Status Dry & Intact Drainage Amount None Drainage Odor None/Absent General Appearance Reddened Length (cm) (cm) 4 Width (cm) (cm) 1 Wound Bed Greatest Portion Red (Granulation),[place] Wound Bed Lesser Portion Red (Granulation),[place] Surrounding Tissue [place],Blanched/Dull Primary Dressing mepilex Secondary Dressing tegaderm Comment friction/shearing. also 2cm x 1 cm to right of 4x1. Left Buttock Wound Assessment New Finding Wound Type Pressure Ulcer Wound Stage Stage II Dressing Status Dry & Intact Drainage Amount None General Appearance Well Approximated,Reddened Length (cm) (cm) 6 Width (cm) (cm) 6 Wound Bed Greatest Portion Red (Granulation) Wound Bed Lesser Portion [place] Surrounding Tissue [place],Blanched/Dull Primary Dressing mepilex Secondary Dressing tegaderm Left Ischial Tuberosity Wound Assessment Shift Assessment Wound Type Pressure Ulcer Wound Stage Unstageable Dressing Status Dry & Intact Drainage Amount None Drainage Odor None/Absent General Appearance Blackened,Necrotic Length (cm) (cm) 15 Width (cm) (cm) 9 Wound Bed Greatest Portion Yellow ([place]) Wound Bed Lesser Portion Black (Eschar) Surrounding Tissue [place] Primary Dressing Non-Adherent Gauze Pads Secondary Dressing tegaderm over mepilex Comment dressing changed today 05/04 Right Ischial Tuberosity Wound Assessment Shift Assessment Wound Type Pressure Ulcer Wound Stage Unstageable Dressing Status Dry & Intact Drainage Amount None Drainage Odor None/Absent Length (cm) (cm) 7 Width (cm) (cm) 4 Wound Bed Greatest Portion Red (Granulation) Wound Bed Lesser Portion [place] Surrounding Tissue [place] Primary Dressing mepilex Secondary Dressing tegaderm over mepilex Comment dressing changed today 05/04 Left Foot Wound Assessment Shift Assessment Wound Type Pressure Ulcer Wound Stage Unstageable Dressing Status Dry & Intact Drainage Amount None Drainage Description Serosanguineous Drainage Odor None/Absent General Appearance Open to air,Reddened,Bleeding Length (cm) (cm) 7 Width (cm) (cm) 5 Wound Bed Greatest Portion Black (Eschar) Wound Bed Lesser Portion Blanched/Dull Surrounding Tissue [place] Comment open to air at this time Wound Photo Photo Taken Yes Date: 05/04/23 Time: 08:30 Comment: Pictures taken upon assessment and changing of dressing. Final Diagnosis/Problem List - Final Discharge Diagnosis/Problem (1) COPD (chronic obstructive pulmonary disease) Current Visit: Yes Status: Acute Onset Date: ~10/21/18 Assessment & Plan: Antibiotics and steroids. (2) Hypoxia Current Visit: No Status: Acute Onset Date: ~10/21/18 Assessment & Plan: Oxygen requirement has been stable Code(s): R09.02 - HYPOXEMIA (3) Shortness of breath Current Visit: No Status: Acute Onset Date: ~10/21/18 Assessment & Plan: Improving. Code(s): R06.02 - SHORTNESS OF BREATH Telemedicine Encounter - Telemedicine Encounter Telemedicine Encounter: The entirety of this encounter was performed via Telemedicine" - Discharge Disposition: DC TO ANY "OTHER" SENIOR CARE Condition: Fair Prescriptions: New Cefdinir 300 mg PO BID 5 Days #10 cap L. Acidophilus/L.bulgaricus [Lactobacillus Tablet] 1 each PO DAILY 10 Days #10 tablet levoFLOXacin [Levofloxacin] 750 mg PO DAILY 5 Days #5 tablet predniSONE [Prednisone] 10 mg PO DAILY 10 Days #15 tablet Continue Ipratropium/Albuterol Sulfate [Iprat-Albut 0.5-3(2.5) mg/3 ml] 1 neb IH QID Albuterol Sulfate Mdi [ALBUTEROL/Proair Hfa MDI] 2 puff IH QID levoFLOXacin [Levofloxacin] 750 mg PO DAILY Fluticasone Propionate [Flovent Diskus] 2 spray IH BID Nicotine [Nicotine Patch] 1 each TD DAILY Budesonide/Formoterol Fumarate [Symbicort 160-4.5 Mcg Inhaler] 2 puff IH BID Tiotropium [place] Inhaler [Spiriva 18 Mcg/Cap Inhaler] 2 puff IH DAILY atenoloL [Atenolol] 6.25 mg PO BID clonazePAM [Clonazepam] 0.5 mg PO TID PRN PRN Reason: Anxiety Sertraline HCl 50 mg [Zoloft 50 mg Tablet] 100 mg PO DAILY Hydrochlorothiazide 25 mg [hydroDIURIL 25 MG] 12.5 mg PO DAILY Senna 8.6 mg [Senokot 8.6 mg] 8.6 mg PO HS Potassium Chloride 10 meq PO DAILY Mupirocin [Bactroban OINTMENT] 0 gm TOP DAILY Additional Instructions: SENIOR CARE ORDERS: ADMIT TO HALFWAY CARE SOFT DIET WITH HONEY THICKENED LIQUIDS SEE MODIFIED BARIUM SWALLOW FOR OTHER RECOMMENDATIONS WELL ROUTINE CATHETER CARE PT/OT EVAL AND TREAT OXYGEN AT 2L/NC Will need chest xray in 2-3 weeks with follow up at the office of Dr. Porsche Ko SEE ATTACHED MED LIST Follow up with: PORSCHE KO [ACTIVE STAFF] - HELDER KO [Primary Care Provider] -
== END 2023-05-04 13:10 | DRG 192 ==
LOC: ED 20:29 → MED SURG 23:50 → OBSVTOIN 04-29 10:52
PROVIDERS: ADMIT Student in an Organized Health Care Education/Training Program; ATTEND Student in an Organized Health Care Education/Training Program
DX: J44.9 Chronic obstructive pulmonary disease, unspecified (principal); R09.02 Hypoxemia; R06.02 Shortness of breath; L89.152 Pressure ulcer of sacral region, stage 2; L89.322 Pressure ulcer of left buttock, stage 2; L89.620 Pressure ulcer of left heel, unstageable; Z72.0 Tobacco use; Z79.899 Other long term (current) drug therapy; Z20.828 Contact with and (suspected) exposure to other viral communicable diseases
CPT/HCPCS: 36000; 36415; 36600; 71045; 74230; 80048; 80053; 81001; 82375; 82803; 82947; 83036; 83605; 83735; 83880; 84134; 84145; 84484; 85025; 85027; 87040; 87086; 92611; 93005; 93041; 93268; 94002; 94003; 94640; 94667; 94760; 94762; 97161; 99285; G0378; Q3014; J0456; J0696; J2920; J2930; J7609; A9270-GY

== ENCOUNTER 2023-05-07 05:02 | Observation (INO) | payer MEDICARE ==
--- NOTE | 2023-05-07 05:20 | ERPHSYRPT ---
- History of Present Illness Source: patient, EMS, jail records, old records Exam Limitations: clinical condition Timing/Duration: today Activities at Onset: none Severity of Dyspnea-Max: moderate Severity of Dyspnea-Current: moderate Possible Cause: frequent episodes, chronic episodes Modifying Factors: Improves With: oxygen, rest Associated Symptoms: loss of appetite, weakness, No chest pain/discomfort Hx Tetanus, Diphtheria Vaccination/Date Given: Yes Hx Influenza Vaccination/Date Given: Yes Hx Pneumococcal Vaccination/Date Given: Yes <JOSEFA WILSON - Last Filed: 05/07/23 06:50> <DANIEL CLIFFORD - Last Filed: 05/07/23 10:27> - History of Present Illness Time Seen by Provider: 05/07/23 05:15 Physician History: This is a cachectic appearing 72-year-old white female patient who was brought to the emergency department by the aluminum welder/ambulance service from [facility]. Patient is a full code. Patient was brought to the emergency department because of respiratory distress. Patient has significant COPD and emphysema and was recently admitted to [facility] for treatment of COPD exacerbation and left foot ulcer. She was admitted in the hospital 04/29/2023 and discharged to the current jail on 05/04/2023. This morning, at the jail, the nursing staff called the ambulance service because they were unable to keep the patient's oxygen saturation level above above the 70 percent level. Patient is an oxygen dependent COPD patient and continues to smoke cigarettes daily. She has been diagnosed with failure to thrive, hypertension, rheumatoid arthritis, osteoarthritis. Patient arrives to the emergency department mildly lethargic. Patient was immediately placed on the BiPAP machine and ABG was obtained. Patient denies chest pain. Patient denies abdominal pain. (JOSEFA WILSON) Allergies/Adverse Reactions: fluticasone furoate [From Trelegy Ellipta] Allergy (Severe, Verified 05/07/23 05:12) Shortness of Breath umeclidinium [From Trelegy Ellipta] Allergy (Severe, Verified 05/07/23 05:12) Shortness of Breath vilanterol [From Trelegy Ellipta] Allergy (Severe, Verified 05/07/23 05:12) Shortness of Breath acetaminophen [From Darvocet-N] Allergy (Intermediate, Verified 05/07/23 05:12) Rash propoxyphene napsylate [From Darvocet-N] Allergy (Intermediate, Verified 05/07/23 05:12) Rash fexofenadine [From Elis-D] Allergy (Verified 05/07/23 05:12) pseudoephedrine [From Elis-D] Allergy (Verified 05/07/23 05:12) Home Medications: Albuterol Sulfate Mdi [ALBUTEROL/Proair Hfa MDI] 2 puff IH QID 10/21/18 [History] Ipratropium/Albuterol Sulfate [Iprat-Albut 0.5-3(2.5) mg/3 ml] 1 neb IH QID 10/21/18 [History] Budesonide/Formoterol Fumarate [Symbicort 160-4.5 Mcg Inhaler] 2 puff IH BID 04/27/23 [History] Fluticasone Propionate [Flovent Diskus] 2 spray IH BID 04/27/23 [History] Nicotine [Nicotine Patch] 1 each TD DAILY 04/27/23 [History] Tiotropium Acushnet Inhaler [Spiriva 18 Mcg/Cap Inhaler] 2 puff IH DAILY 04/27/23 [History] atenoloL [Atenolol] 6.25 mg PO BID 04/27/23 [History] Hydrochlorothiazide 25 mg [hydroDIURIL 25 MG] 12.5 mg PO DAILY 04/28/23 [History] Mupirocin [Bactroban OINTMENT] 0 gm TOP DAILY 04/28/23 [History] Potassium Chloride 10 meq PO DAILY 04/28/23 [History] Senna 8.6 mg [Senokot 8.6 mg] 8.6 mg PO HS 04/28/23 [History] Sertraline HCl 50 mg [Zoloft 50 mg Tablet] 100 mg PO DAILY 04/28/23 [History] clonazePAM [Clonazepam] 2 mg PO Q4HWA PRN 05/07/23 [History] Travel Risk - International Travel Have you traveled outside of the country in past 3 weeks: No - Coronavirus Screening Are you exhibiting any of the following symptoms?: Yes Symptoms: Shortness of Breath Close contact with a COVID-19 positive Pt in past 14-21 Days: No - Vaccine Status Have you recieved a Covid-19 vaccination: Yes 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: [employer] - Vaccination Dates Date of 2cond Vaccination (if applicable): unknown <JOSEFA WILSON - Last Filed: 05/07/23 06:50> - Review of Systems Constitutional: Weakness Eyes: No Symptoms Ears, Nose, & Throat: No Symptoms Respiratory: Dyspnea Cardiac: No Symptoms Abdominal/Gastrointestinal: No Symptoms Genitourinary Symptoms: No Symptoms Musculoskeletal: No Symptoms Skin: No Symptoms Neurological: Lethargy Psychological: No Symptoms Endocrine: No Symptoms Hematologic/Lymphatic: No Symptoms Immunological/Allergic: No Symptoms All Other Systems: Reviewed and Negative <JOSEFA WILSON - Last Filed: 05/07/23 06:50> - Past Medical History Pertinent Past Medical History: Yes Neurological History: No Pertinent History ENT History: No Pertinent History Cardiac History: No Pertinent History Respiratory History: COPD, Emphysema Endocrine Medical History: No Pertinent History Musculoskeletal History: Osteoporosis, Rheumatoid Arthritis, Other GI Medical History: No Pertinent History History: No Pertinent History Psycho-Social History: No Pertinent History Female Reproductive Disorders: No Pertinent History Other Medical History: 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 failure to thrive - Past Surgical History Past Surgical History: Yes Neuro Surgical History: No Pertinent History Cardiac: No Pertinent History Respiratory: No Pertinent History Gastrointestinal: No Pertinent History Genitourinary: No Pertinent History Musculoskeletal: Orthopedic Surgery Female Surgical History: Section Other Surgical History: rt arm - Social History Smoking Status: Current every day smoker How long have you smoked: YRS Exposure to second hand smoke: No Drug Use: none Patient Lives Alone: Yes <JOSEFA WILSON - Last Filed: 05/07/23 06:50> - Physical Exam General Appearance: lethargy, cachetic Eye Exam: PERRL/EOMI, eyes nml inspection Ears, Nose, Throat Exam: hearing grossly normal (With dry mucous membranes oral cavity) Neck Exam: normal inspection, non-tender, supple, full range of motion Respiratory Exam: respiratory distress, airway intact, diminished breath sounds, No accessory muscle use Cardiovascular/Chest Exam: normal heart sounds, regular rate/rhythm Abdominal/Gastrointestinal Exam: soft, normal bowel sounds, No tenderness Rectal Exam: not done Extremity Exam: non-tender, pedal edema (Bilateral feet and ankles) Neurologic Exam: cooperative, criminalist II-XII nml as tested Skin Exam: warm, dry, pale, other (Left foot dorsal aspect eschar/ulcer) Lymphatic Exam: No adenopathy SpO2 Interpretation: hypoxic O2 Delivery: BiPap/CPAP <JOSEFA WILSON - Last Filed: 05/07/23 06:50> - Nursing Vital Signs Nursing Vital Signs: Initial Vital Signs Pulse Rate 97 H 05/07/23 05:07 Respiratory Rate 29 H 05/07/23 05:07 Blood Pressure 151/58 05/07/23 05:07 O2 Sat by Pulse Oximetry 97 05/07/23 05:07 Pain Scale Pain Intensity 0 - Course Nursing assessment & vital signs reviewed: Yes EKG Interpreted by Me: RATE (91), Sinus Rhythm, NORMAL AXIS, NORMAL QRS, NORMAL ST-T, Other (Short [place] interval. No acute ischemic changes on today's twelve- lead EKG.) <JOSEFA WILSON - Last Filed: 05/07/23 06:50> Ordered Tests: Active Orders 24 hr Category Date Time Status Wine Fermenter STAT Care 05/07/23 05:40 Active Catheter-[place] STAT Care 05/07/23 05:39 Active EKG-ER Only STAT Care 05/07/23 05:39 Active IV Insertion STAT Care 05/07/23 05:39 Active Pulse Oximetry (ED) STAT Care 05/07/23 05:39 Active CHEST 1 VIEW (PORTABLE) Stat Exams 05/07/23 05:40 Completed HEAD WITHOUT CONTRAST [CT] Stat Exams 05/07/23 06:33 Completed ARTERIAL BLOOD GASES Urgent Lab 05/07/23 05:45 Completed BLOOD CULTURE Stat Lab 05/07/23 05:30 Received CBC W DIFF Stat Lab 05/07/23 05:30 Completed CULTURE,URINE Stat Lab 05/07/23 06:23 Received D-DIMER QUANTITATIVE Stat Lab 05/07/23 05:30 Completed Lactic Acid Stat Lab 05/07/23 05:45 Completed MAG [MAGNESIUM] Stat Lab 05/07/23 05:45 Completed NT PRO BNPII Stat Lab 05/07/23 05:30 Completed PROCALCITONIN Stat Lab 05/07/23 05:30 Completed TROPONIN Q4H Lab 05/07/23 05:30 Completed UA W/RFX UR CULTURE Stat Lab 05/07/23 06:23 Completed BiPap/CPAP STAT RT 05/07/23 06:20 Active Respiratory Therapy Assessment DAILY RT 05/07/23 06:20 Active Transfer Order Routine Transfer 05/07/23 Ordered Medication Summary Discontinued Medications Generic Name Dose Route Start Last Admin Trade Name aJcki PRN Reason Stop Dose Admin Methylprednisolone Sodium 0 mg 05/07/23 07:34 05/07/23 08:07 Succinate 125 mg/ Sterile IV 05/07/23 07:35 125 mg Water 2 ml STAT ONE Administration Ceftriaxone Sodium/Dextrose 1 g in 50 mls @ 100 mls/hr 05/07/23 07:32 05/07/23 08:07 Rocephin 1 Gm-D5w 50 Ml Bag IV 05/07/23 08:01 Infused STAT STA Infusion Levofloxacin/Dextrose 250 mg in 50 mls @ 50 mls/hr 05/07/23 07:32 05/07/23 09:13 Levaquin 250mg/50ml D5w IV 05/07/23 08:31 Infused STAT STA Infusion Ceftriaxone Sodium/Dextrose Confirm 05/07/23 07:35 Rocephin 1 Gm-D5w 50 Ml Bag Administered 05/07/23 07:36 Dose 1 g in 50 mls @ ud IV .STK-MED ONE Levofloxacin/Dextrose Confirm 05/07/23 08:10 Levaquin 250mg/50ml D5w Administered 05/07/23 08:11 Dose 250 mg in 50 mls @ ud IV .STK-MED ONE Lorazepam 1 mg 05/07/23 08:49 05/07/23 08:51 Lorazepam 2 Mg/1 Ml 2 Mg Vial IV 05/07/23 08:50 1 mg STAT ONE Administration Lorazepam Confirm 05/07/23 08:47 Lorazepam 2 Mg/1 Ml 2 Mg Vial Administered 05/07/23 08:48 Dose 2 mg .ROUTE .STK-MED ONE Methylprednisolone Sodium Succinate Confirm 05/07/23 07:38 Methylprednis Sod Succ 125 Mg/2 Ml Vial Administered 05/07/23 07:39 Dose 125 mg .ROUTE .STK-MED ONE Morphine Sulfate 2 mg 05/07/23 08:49 05/07/23 08:51 Morphine Sulfate 2 Mg/Ml Inj IV 05/07/23 08:50 2 mg STAT ONE Administration Morphine Sulfate Confirm 05/07/23 08:47 Morphine Sulfate 2 Mg/Ml Inj Administered 05/07/23 08:48 Dose 2 mg .ROUTE .AgLocal-MED ONE Sterile Water Confirm 05/07/23 07:38 Water For Injection,Sterile 10 Ml Vial Administered 05/07/23 07:39 Dose 10 ml IJ .STK-MED ONE Lab/Rad Data: Laboratory Result Diagrams 05/07/23 05:30 Laboratory Results 05/07/23 05/07/23 05/07/23 Range/Units Unknown 06:30 06:23 WBC (4.0-10.5) x10^3/uL RBC (4.1-5.4) x10^6/uL Hgb (12.0-16.0) g/dL Hct (35-47) % MCV (78-100) fL MCH (26-32) pg MCHC (32-36) g/dL RDW (11.5-14.0) % Plt Count (150-450) x10^3/uL MPV (7.5-11.0) fL Gran % (36.0-66.0) % Immature Gran % (Auto) (0.00-0.4) % Nucleat RBC Rel Count (0.00-0.1) % Eos # (Auto) (0-0.5) x10^3/uL Immature Gran # (Auto) (0.00-0.03) x10^3u/L Absolute Lymphs (auto) (1.0-4.6) x10^3/uL Absolute Monos (auto) (0.0-1.3) x10^3/uL Absolute Nucleated RBC (0.00-0.01) x10^3u/L Lymphocytes % (24.0-44.0) % Monocytes % (0.0-12.0) % Eosinophils % (0.00-5.0) % Basophils % (0.0-0.4) % Absolute Granulocytes (1.4-6.9) x10^3/uL Basophils # (0-0.4) x10^3/uL D-Dimer (0.0-0.50) mg/L Puncture Site pCO2 (35-45) mmHg pO2 (75-100) mmHg Base Excess (-2.0-2.0) O2 Saturation (94-100) g/dF ABG pH (7.35-7.45) ABG HCO3 (22-28) ABG O2 Sat (Measured) (95-100) % Sukumar Test A-a Gradient a/A Ratio Hemoglobin Carboxyhemoglobin (0.0-6.9) % THgb Methemoglobin (1.4-1.5) % Potassium (3.5-5.1) Temperature C POC O2 Flow Rate % Lactic Acid (0.4-2.0) Magnesium (1.6-2.3) mg/dL Ammonia 22 (9-30) umol/L Troponin I (0.000-0.034) ng/mL NT-Pro-B Natriuret Pep (<300) pg/mL Procalcitonin (0.030-0.080) ng/mL Urine Color Red A (Yellow) Urine Appearance Cloudy A (Clear) Urine pH 7.0 (4.6-8.0) Ur Specific [place] 1.015 (1.005-1.030) Urine Protein 100 A (Negative) Urine Glucose (UA) Negative (Negative) mg/dL Urine Ketones Negative (Negative) Urine Blood Moderate A (Negative) Urine Nitrite Negative (Negative) Urine Bilirubin Negative (Negative) Urine Urobilinogen 0.2 (0.2) mg/dL Ur Leukocyte Esterase Moderate A (Negative) U Hyaline Cast (Auto) NONE SEEN (0-2) /LPF Urine Microscopic RBC >100 A (0-5) /HPF Urine Microscopic WBC >100 A (0-5) /HPF Ur Epithelial Cells None Seen (None Seen) /HPF Urine Bacteria Many A (None Seen) /HPF Urine Culture Reflexed ORDERED SEPARATELY (NO) Influenza Type A Ag NEGATIVE (NEGATIVE) Influenza Type B Ag NEGATIVE (NEGATIVE) RSV (PCR) NEGATIVE (NEGATIVE) SARS-CoV-2 (PCR) NEGATIVE (NEGATIVE) 05/07/23 05/07/23 05/07/23 Range/Units 05:45 05:45 05:45 WBC (4.0-10.5) x10^3/uL RBC (4.1-5.4) x10^6/uL Hgb (12.0-16.0) g/dL Hct (35-47) % MCV (78-100) fL MCH (26-32) pg MCHC (32-36) g/dL RDW (11.5-14.0) % Plt Count (150-450) x10^3/uL MPV (7.5-11.0) fL Gran % (36.0-66.0) % Immature Gran % (Auto) (0.00-0.4) % Nucleat RBC Rel Count (0.00-0.1) % Eos # (Auto) (0-0.5) x10^3/uL Immature Gran # (Auto) (0.00-0.03) x10^3u/L Absolute Lymphs (auto) (1.0-4.6) x10^3/uL Absolute Monos (auto) (0.0-1.3) x10^3/uL Absolute Nucleated RBC (0.00-0.01) x10^3u/L Lymphocytes % (24.0-44.0) % Monocytes % (0.0-12.0) % Eosinophils % (0.00-5.0) % Basophils % (0.0-0.4) % Absolute Granulocytes (1.4-6.9) x10^3/uL Basophils # (0-0.4) x10^3/uL D-Dimer (0.0-0.50) mg/L Puncture Site RIGHT RADIAL pCO2 69 H* (35-45) mmHg pO2 152 H* (75-100) mmHg Base Excess 16.7 H (-2.0-2.0) O2 Saturation 98.4 (94-100) g/dF ABG pH 7.41 (7.35-7.45) ABG HCO3 43.7 H* (22-28) ABG O2 Sat (Measured) 100.0 (95-100) % Sukumar Test YES A-a Gradient 332 a/A Ratio 0.31 Hemoglobin 9.1 Carboxyhemoglobin 1.2 (0.0-6.9) % THgb Methemoglobin 0.4 L (1.4-1.5) % Potassium 3.7 (3.5-5.1) Temperature 37.0 C POC O2 Flow Rate 80 % Lactic Acid 0.4 (0.4-2.0) Magnesium 2.3 (1.6-2.3) mg/dL Ammonia (9-30) umol/L Troponin I (0.000-0.034) ng/mL NT-Pro-B Natriuret Pep (<300) pg/mL Procalcitonin (0.030-0.080) ng/mL Urine Color (Yellow) Urine Appearance (Clear) Urine pH (4.6-8.0) Ur Specific [place] (1.005-1.030) Urine Protein (Negative) Urine Glucose (UA) (Negative) mg/dL Urine Ketones (Negative) Urine Blood (Negative) Urine Nitrite (Negative) Urine Bilirubin (Negative) Urine Urobilinogen (0.2) mg/dL Ur Leukocyte Esterase (Negative) U Hyaline Cast (Auto) (0-2) /LPF Urine Microscopic RBC (0-5) /HPF Urine Microscopic WBC (0-5) /HPF Ur Epithelial Cells (None Seen) /HPF Urine Bacteria (None Seen) /HPF Urine Culture Reflexed (NO) Influenza Type A Ag (NEGATIVE) Influenza Type B Ag (NEGATIVE) RSV (PCR) (NEGATIVE) SARS-CoV-2 (PCR) (NEGATIVE) 05/07/23 05/07/23 05/07/23 Range/Units 05:30 05:30 05:30 WBC (4.0-10.5) x10^3/uL RBC (4.1-5.4) x10^6/uL Hgb (12.0-16.0) g/dL Hct (35-47) % MCV (78-100) fL MCH (26-32) pg MCHC (32-36) g/dL RDW (11.5-14.0) % Plt Count (150-450) x10^3/uL MPV (7.5-11.0) fL Gran % (36.0-66.0) % Immature Gran % (Auto) (0.00-0.4) % Nucleat RBC Rel Count (0.00-0.1) % Eos # (Auto) (0-0.5) x10^3/uL Immature Gran # (Auto) (0.00-0.03) x10^3u/L Absolute Lymphs (auto) (1.0-4.6) x10^3/uL Absolute Monos (auto) (0.0-1.3) x10^3/uL Absolute Nucleated RBC (0.00-0.01) x10^3u/L Lymphocytes % (24.0-44.0) % Monocytes % (0.0-12.0) % Eosinophils % (0.00-5.0) % Basophils % (0.0-0.4) % Absolute Granulocytes (1.4-6.9) x10^3/uL Basophils # (0-0.4) x10^3/uL D-Dimer 0.27 (0.0-0.50) mg/L Puncture Site pCO2 (35-45) mmHg pO2 (75-100) mmHg Base Excess (-2.0-2.0) O2 Saturation (94-100) g/dF ABG pH (7.35-7.45) ABG HCO3 (22-28) ABG O2 Sat (Measured) (95-100) % Sukumar Test A-a Gradient a/A Ratio Hemoglobin Carboxyhemoglobin (0.0-6.9) % THgb Methemoglobin (1.4-1.5) % Potassium (3.5-5.1) Temperature C POC O2 Flow Rate % Lactic Acid (0.4-2.0) Magnesium (1.6-2.3) mg/dL Ammonia (9-30) umol/L Troponin I < 0.012 (0.000-0.034) ng/mL NT-Pro-B Natriuret Pep 175 (<300) pg/mL Procalcitonin 0.085 H (0.030-0.080) ng/mL Urine Color (Yellow) Urine Appearance (Clear) Urine pH (4.6-8.0) Ur Specific [place] (1.005-1.030) Urine Protein (Negative) Urine Glucose (UA) (Negative) mg/dL Urine Ketones (Negative) Urine Blood (Negative) Urine Nitrite (Negative) Urine Bilirubin (Negative) Urine Urobilinogen (0.2) mg/dL Ur Leukocyte Esterase (Negative) U Hyaline Cast (Auto) (0-2) /LPF Urine Microscopic RBC (0-5) /HPF Urine Microscopic WBC (0-5) /HPF Ur Epithelial Cells (None Seen) /HPF Urine Bacteria (None Seen) /HPF Urine Culture Reflexed (NO) Influenza Type A Ag (NEGATIVE) Influenza Type B Ag (NEGATIVE) RSV (PCR) (NEGATIVE) SARS-CoV-2 (PCR) (NEGATIVE) 05/07/23 Range/Units 05:30 WBC 9.7 (4.0-10.5) x10^3/uL RBC 2.90 L (4.1-5.4) x10^6/uL Hgb 9.1 L (12.0-16.0) g/dL Hct 29.8 L (35-47) % MCV 102.8 H (78-100) fL MCH 31.4 (26-32) pg MCHC 30.5 L (32-36) g/dL RDW 12.3 (11.5-14.0) % Plt Count 290 (150-450) x10^3/uL MPV 9.8 (7.5-11.0) fL Gran % 85.3 H (36.0-66.0) % Immature Gran % (Auto) 0.3 (0.00-0.4) % Nucleat RBC Rel Count 0.0 (0.00-0.1) % Eos # (Auto) 0.02 (0-0.5) x10^3/uL Immature Gran # (Auto) 0.03 (0.00-0.03) x10^3u/L Absolute Lymphs (auto) 0.65 L (1.0-4.6) x10^3/uL Absolute Monos (auto) 0.72 (0.0-1.3) x10^3/uL Absolute Nucleated RBC 0.00 (0.00-0.01) x10^3u/L Lymphocytes % 6.7 L (24.0-44.0) % Monocytes % 7.4 (0.0-12.0) % Eosinophils % 0.2 (0.00-5.0) % Basophils % 0.1 (0.0-0.4) % Absolute Granulocytes 8.27 H (1.4-6.9) x10^3/uL Basophils # 0.01 (0-0.4) x10^3/uL D-Dimer (0.0-0.50) mg/L Puncture Site pCO2 (35-45) mmHg pO2 (75-100) mmHg Base Excess (-2.0-2.0) O2 Saturation (94-100) g/dF ABG pH (7.35-7.45) ABG HCO3 (22-28) ABG O2 Sat (Measured) (95-100) % Sukumar Test A-a Gradient a/A Ratio Hemoglobin Carboxyhemoglobin (0.0-6.9) % THgb Methemoglobin (1.4-1.5) % Potassium (3.5-5.1) Temperature C POC O2 Flow Rate % Lactic Acid (0.4-2.0) Magnesium (1.6-2.3) mg/dL Ammonia (9-30) umol/L Troponin I (0.000-0.034) ng/mL NT-Pro-B Natriuret Pep (<300) pg/mL Procalcitonin (0.030-0.080) ng/mL Urine Color (Yellow) Urine Appearance (Clear) Urine pH (4.6-8.0) Ur Specific [place] (1.005-1.030) Urine Protein (Negative) Urine Glucose (UA) (Negative) mg/dL Urine Ketones (Negative) Urine Blood (Negative) Urine Nitrite (Negative) Urine Bilirubin (Negative) Urine Urobilinogen (0.2) mg/dL Ur Leukocyte Esterase (Negative) U Hyaline Cast (Auto) (0-2) /LPF Urine Microscopic RBC (0-5) /HPF Urine Microscopic WBC (0-5) /HPF Ur Epithelial Cells (None Seen) /HPF Urine Bacteria (None Seen) /HPF Urine Culture Reflexed (NO) Influenza Type A Ag (NEGATIVE) Influenza Type B Ag (NEGATIVE) RSV (PCR) (NEGATIVE) SARS-CoV-2 (PCR) (NEGATIVE) - Progress Progress: improved Air Movement: poor Blood Culture(s) Obtained: Yes Counseled pt/family regarding: lab results, diagnosis <JOSEFA WILSON - Last Filed: 05/07/23 06:50> - Progress Discussed with : Other (TeleHospitalist Sx) Will see patient in: hospital (observation) <DANIEL CLIFFORD - Last Filed: 05/07/23 10:27> - Progress Progress Note: 05/07/23 06:50 Transfer of care of this patient to Dr. clifford at shift change. He will follow-up with the results of the studies and make final disposition. (JOSEFA WILSON) 05/07/23 09:01 Patient was started on IV Rocephin and Solu-Medrol 120 mg IV given. I talked to patient's daughter who lives approximately 150 miles away. I informed her ab out her mother's critical condition. Patient is DNR. Patient was little bit more alert so BiPAP was taken off and put on 3 L of nasal cannula with which patient is holding around 99% oxygen. Patient is still very confused. She also agreed with DNR decision. At this point of time patient condition is very critical with bad decubitus ulcers's sign and laboratory data suggestive of urosepsis. (DANIEL CLIFFORD) Medical Desision Making - Independent Historian Additional History obtained from: Sign Erector/EMT - External Record(s) Reviewed Records reviewed as a part of evaluation & management: Inpatient, Discharge Summary, care home <JOSEFA WILSON - Last Filed: 05/07/23 06:50> - Diagnostic Testing Diagnostic test were ordered, analyzed, and reviewed by me: Yes Radiological Interpretation: Reviewed by me, Teleradiologist Report - Risk of complications The pt has a high risk of morbidity or mortality based on: Drug therapy requiring intensive monitoring for toxicity, Decision not to resucitate <DANIEL CLIFFORD - Last Filed: 05/07/23 10:27> - Departure Departure Disposition: In-patient Admission Critical Care Time: Yes Critical Care Time(excluding separately billable procedures): Critical 30-74 min s (30) <JOSEFA WILSON - Last Filed: 05/07/23 06:50> - Departure Departure Disposition: In-patient Admission Critical Care Time: Yes Critical Care Time(excluding separately billable procedures): Critical 30-74 mins <DANIEL CLIFFORD - Last Filed: 05/07/23 10:27> - Departure Clinical Impression: Respiratory distress, COPD with exacerbation, Hypoxia, Sepsis due to anaerobic bacteria Decubital ulcer Qualifiers: Pressure injury location: sacral region Pressure injury stage: stage 4 Qualified Code(s): L89.154 - Pressure ulcer of sacral region, stage 4 Condition: Fair Referrals: HELDER KO [Primary Care Provider] - Follow up/PCP as directed Instructions: Chronic Obstructive Pulmonary Disease
[2023-05-07 05:52] LABS: Absolute Neutrophil Ct (ANC) 8.27 x10^3/uL (1.4-6.9); BASOPHIL % 0.1 % (0.0-0.4); Basophil (Absolute #) 0.01 x10^3/uL (0-0.4); Eosinophil % 0.2 % (0.00-5.0); Eosinophil (Absolute #) 0.02 x10^3/uL (0-0.5); Hematocrit 29.8 % (35-47); Hemoglobin 9.1 g/dL (12.0-16.0); IMMATURE GRAN # 0.03 x10^3u/L (0.00-0.03); IMMATURE GRAN % 0.3 % (0.00-0.4); Lymphocyte (Absolute #) 0.65 x10^3/uL (1.0-4.6); Lymphocytes % 6.7 % (24.0-44.0); Mean Cell Volume 102.8 fL (78-100); Mean Corpuscular Hemoglobin 31.4 pg (26-32); Mean Corpuscular Hgb Concent. 30.5 g/dL (32-36); Mean Platelet Volume 9.8 fL (7.5-11.0); Monocyte (Absolute #) 0.72 x10^3/uL (0.0-1.3); Monocytes % 7.4 % (0.0-12.0); Neutrophil % 85.3 % (36.0-66.0); Platelet Count 290 x10^3/uL (150-450); Red Cell Distribution Width 12.3 % (11.5-14.0); White Blood Count 9.7 x10^3/uL (4.0-10.5)
[2023-05-07 06:00] LABS: A-aADO2 332; ABG HEMOGLOBIN 9.1; ABG POTASSIUM 3.7 (3.5-5.1); ARTERIAL BLOOD GAS BASE EXCESS 16.7 (-2.0-2.0); ARTERIAL BLOOD GAS FIO2 80 %; ARTERIAL BLOOD GAS PO2 152 mmHg (75-100); ARTERIAL BLOOD GAS pH 7.41 (7.35-7.45); CARBOXYHEMOGLOBIN 1.2 % THgb (0.0-6.9); HCO3- 43.7 (22-28); HGB O2 SAT 98.4 g/dF (94-100); Methhemoglobin 0.4 % (1.4-1.5); paO2 pAO1 0.31
[2023-05-07 06:01] LABS: ABG SITE RIGHT RADIAL; ALLEN TEST OK? YES; ARTERIAL BLOOD GAS PCO2 69 mmHg (35-45)
[2023-05-07 06:16] LABS: PROCALCITONIN 0.085 ng/mL (0.030-0.080)
[2023-05-07 06:52] LABS: Bacteria Many /HPF (None Seen); Bilirubin Negative (Negative); Blood Moderate (Negative); Epithelial Cells None Seen /HPF (None Seen); Glucose, Urine Negative (Negative); Hyaline Casts NONE SEEN /LPF (0-2); Ketones Negative (Negative); Leukocyte Esterase Moderate (Negative); Nitrite Negative (Negative); Protein,Urine Dip 100 (Negative); RBC >100 /HPF (0-5); Specific Gravity 1.015 (1.005-1.030); Urobilinogen 0.2 mg/dL (0.2); WBC >100 /HPF (0-5)
[2023-05-07 06:53] LABS: Appearance Cloudy (Clear)
[2023-05-07 06:55] LABS: ADD URINE CULTURE? ORDERED SEPARATELY (NO)
[2023-05-07 07:10] LABS: INFLUENZA A NEGATIVE (NEGATIVE); INFLUENZA B NEGATIVE (NEGATIVE); RESPIRATORY SYNCTIAL VIRUS NEGATIVE (NEGATIVE); SARS-CoV-2 Xpert Express NEGATIVE (NEGATIVE)
[2023-05-07] MEDS ORDERED: Levaquin 250MG/50ML D5W 250 MG/50 ML BAG IV STA (07:32)
[2023-05-07] MEDS ORDERED: ROCEPHIN 1 Gm-D5w 50 ml Bag** 1 G/50 ML IVPB IV STA (07:32)
[2023-05-07] MEDS ORDERED: solu-MEDROL 125 MG, Sterile H2O 10 ml 2 ML IV ONE ×2 (07:34)
[2023-05-07] MEDS ORDERED: ROCEPHIN 1 Gm-D5w 50 ml Bag** 1 G/50 ML IVPB IV ONE (07:35)
[2023-05-07] MEDS ORDERED: solu-MEDROL ONE ×2 (07:38→17:59)
[2023-05-07] MEDS ORDERED: Sterile H2O 10 ml IJ ONE (07:38)
--- NOTE | 2023-05-07 07:58 | XRAY ---
CLINICAL HISTORY:Altered mental status COMPARISON:None. TECHNIQUE:Axial non-contrast CT scan of the brain was performed from the skull base to the high parietal region. Coronal and sagittal reconstructions were also obtained. FINDINGS: The visualized brain parenchyma shows normal appearance. Miranda-white matter differentiation is maintained. No midline shifts or deformity. No intracerebral or extra axial hematoma. There are periventricular hypodensties noted in both parietal regions, suggestive of microvascular ischemic changes. The ventricular system, cortical sulci, and basal cisterns are prominent and consistent with senile changes. Normal CT appearance of the posterior fossa structures namely the cerebellar hemispheres, brainstem and cerebellar peduncles. The IACs are unremarkable. The cerebellopontine angles are clear. The pituitary gland, the pineal gland, the optic chiasm are unremarkable. The osseous structures in the skull base are unremarkable. No definite calvarium fractures. The scanned paranasal sinuses are clear. IMPRESSION: 1. No evidence of established intracerebral infarction, hemorrhage or mass. 2. White matter ischemic changes. 3. Age related brain changes. Electronically Signed by: Orin Ortega MD. 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
--- NOTE | 2023-05-07 08:09 | XRAY ---
Indication: Short of breath. Comparison: May 02, 2023 Portable chest demonstrates clearing left base infiltrate/atelectasis/effusion with mild residual. Remaining lungs clear again with COPD and calcified granulomas. Heart not enlarged. Bony thorax intact again with osteopenia, degenerative changes, and right mastectomy.
[2023-05-07] MEDS ORDERED: Levaquin 250MG/50ML D5W 250 MG/50 ML BAG IV ONE (08:10)
[2023-05-07] MEDS ORDERED: Ativan 2 MG/1 ML VIAL ONE ×2 (08:47→10:45)
[2023-05-07] MEDS ORDERED: MORPHINE SULFATE 2 MG INJ ONE ×2 (08:47→10:45)
[2023-05-07] MEDS ORDERED: Ativan 2 MG/1 ML VIAL IV ONE ×2 (08:49→10:37)
[2023-05-07] MEDS: MORPHINE SULFATE 2 MG INJ IV ONE ×2 (08:51→10:50)
[2023-05-07] MEDS ORDERED: MORPHINE SULFATE 10 MG/ML IV ONE (10:37)
[2023-05-07] MEDS ORDERED: Sodium Chloride 0.9% 1000 ML 1,000 ML IV SCH (10:45)
[2023-05-07] MEDS ORDERED: Sodium Chloride 0.9% 1000 ML 1,000 ML ONE (10:45)
[2023-05-07] MEDS ORDERED: DUONEB 0.5-3 MG/3 ml Neb IH PRN (11:19)
[2023-05-07] MEDS: solu-MEDROL 60 MG, Sterile H2O 10 ml 2 ML IV SCH ×6 (13:11→23:35)
[2023-05-07] MEDS: Zithromax 500 MG/ 250 ML NaCl Premix 500 MG/250 ML IVPB IV SCH (13:12)
[2023-05-07] MEDS ORDERED: Lidoderm Patch 5% TOP PRN (14:02)
[2023-05-07] MEDS ORDERED: ALBUTEROL SULFATE IH PRN (14:28)
[2023-05-07] MEDS ORDERED: VENTOLIN COMMON CANISTER IH PRN (14:30)
[2023-05-07] MEDS: PROTONIX 40 MG IV IV SCH (14:53)
[2023-05-07] MEDS: Nicoderm CQ 21 MG TOP SCH (15:08)
[2023-05-07] MEDS: Sodium Chloride 0.9% 1000 ML 1,000 ML IV SCH (23:35)
[2023-05-08 05:15] LABS: BASOPHIL % 0.1 % (0.0-0.4); Basophil (Absolute #) 0.01 x10^3/uL (0-0.4); Eosinophil (Absolute #) 0 x10^3/uL (0-0.5); Hematocrit 28.4 % (35-47); Hemoglobin 8.7 g/dL (12.0-16.0); IMMATURE GRAN # 0.04 x10^3u/L (0.00-0.03); IMMATURE GRAN % 0.4 % (0.00-0.4); Lymphocyte (Absolute #) 0.31 x10^3/uL (1.0-4.6); Lymphocytes % 3.3 % (24.0-44.0); Mean Cell Volume 103.3 fL (78-100); Mean Corpuscular Hemoglobin 31.6 pg (26-32); Mean Corpuscular Hgb Concent. 30.6 g/dL (32-36); Mean Platelet Volume 9.9 fL (7.5-11.0); Monocyte (Absolute #) 0.36 x10^3/uL (0.0-1.3); Monocytes % 3.9 % (0.0-12.0); Neutrophil % 92.3 % (36.0-66.0); Platelet Count 304 x10^3/uL (150-450); Red Blood Count 2.75 x10^6/uL (4.1-5.4); Red Cell Distribution Width 12.8 % (11.5-14.0); White Blood Count 9.3 x10^3/uL (4.0-10.5)
[2023-05-08] MEDS: solu-MEDROL 60 MG, Sterile H2O 10 ml 2 ML IV SCH ×6 (05:26→18:28)
[2023-05-08 05:34] LABS: ALBUMIN 2.9 g/dL (3.5-5.0); ALKALINE PHOSPHATASE 76 U/L (38-126); BLOOD UREA NITROGEN 24 mg/dL (7-17); CHLORIDE 93 mmol/L (98-107); Calcium 8.2 mg/dL (8.4-10.2); Creatinine 1 0.32 mg/dL (0.52-1.04); EST GLOMERULAR FILTRATION RATE > 60.0 ML/MIN; Glucose 123 mg/dL (74-106); Potassium 4.4 mmol/L (3.5-5.1); SGOT/AST 21 U/L (14-36); SGPT/ALT 20 U/L (0-35); SODIUM 135 mmol/L (137-145); Total Protein 5.2 g/dL (6.3-8.2)
[2023-05-08 05:41] LABS: Carbon Dioxide 36 mmol/L (22-30)
[2023-05-08 05:47] LABS: ANION GAP 10.4 MEQ/L (5-15)
--- NOTE | 2023-05-08 06:03 | PCM.HP ---
History of Present Illness - Chief Complaint Chief Complaint: COPDE Date: 05/07/23 History of Present Illness: is a 72 year old female. Who is admitted from retirement. She has a past medical history of end stage COPD. She is brought in with shortness of breath and other difficulty breathing. She is cachectic and continues to smoke daily. She also continues to aspirate. She was started on BIPAP in the ED. she became more alert when respiratory markers improved. In discussion with ED provider and family, she wanted her code status changed to DNR. She was seen at bedside with rad garcia on [place] and appeared more comfortable. She continues to have shortness of breath. rda Garcia agrees to DNR status and would like to discuss hospice measures. She agrees to stay in the hospital untile the next weekday when social aork can help with hospice arrangements at [place]. no fevers or chills, will continue respiratory treatments and ABX for aspiration for comfort measures until seen by palliative service. - Review of Systems Eyes: No Symptoms Ears, Nose, & Throat: No Symptoms Respiratory: Short Of Breath, Wheezing Cardiac: No Symptoms Abdominal/Gastrointestinal: No Symptoms Genitourinary Symptoms: No Symptoms Musculoskeletal: Myalgias Skin: No Symptoms Medications & Allergies Home Medications: Home Medication List Albuterol Sulfate Mdi [ALBUTEROL/Proair Hfa MDI] 2 puff IH Q4HPRN PRN 10/21/18 [History Confirmed 05/07/23] Tiotropium [place] Inhaler [Spiriva 18 Mcg/Cap Inhaler] 2 puff IH DAILY 04/27/23 [History Confirmed 05/07/23] Hydrochlorothiazide 25 mg [hydroDIURIL 25 MG] 25 mg PO DAILY 04/28/23 [History Confirmed 05/07/23] Potassium Chloride 10 meq PO DAILY 04/28/23 [History Confirmed 05/07/23] Senna 8.6 mg [Senokot 8.6 mg] 8.6 mg PO HS 04/28/23 [History Confirmed 05/07/23] L. Acidophilus/L.bulgaricus [Lactobacillus Tablet] 1 each PO DAILY 10 Days #10 tablet 05/04/23 [Rx Confirmed 05/07/23] Bisacodyl 10 mg [Dulcolax 10 MG SUPP] 10 mg FL DAILY PRN PRN 05/07/23 [History Confirmed 05/07/23] Hydrocortisone 1% Cream [Cortisone 1% Cream] 1 each TOP QIDPRN PRN 05/07/23 [History Confirmed 05/07/23] Lidocaine [Lidocore] 1 patch TP DAILY 05/07/23 [History Confirmed 05/07/23] Magnesium Hydroxide 30 ml [Milk of Magnesia 30 ml] 30 ml PO DAILY PRN PRN 05/07/23 [History Confirmed 05/07/23] Nicotine 21 mg [Nicoderm CQ 21 MG] 21 mg TP DAILY 05/07/23 [History Confirmed 05/07/23] PANTOPRAZOLE 40 mg Tablet [Protonix 40MG Tablet] 40 mg PO DAILY 05/07/23 [History Confirmed 05/07/23] Polyethylene Glycol 3350 17 gm [Miralax Powder 17GM PACKET] 17 gm PO DAILY PRN PRN 05/07/23 [History Confirmed 05/07/23] Sertraline HCl [Zoloft] 100 mg PO DAILY 05/07/23 [History Confirmed 05/07/23] Sodium Phosphate,Harney-Dibasic [Fleet Enema] 1 each FL DAILY PRN PRN 05/07/23 [History Confirmed 05/07/23] clonazePAM [Clonazepam] 2 mg PO Q4HWA PRN 05/07/23 [History Confirmed 05/07/23] guaiFENesin [Mucus ER] 1,200 mg PO BID 05/07/23 [History Confirmed 05/07/23] predniSONE [Prednisone] 20 mg PO DAILY 05/07/23 [History Confirmed 05/07/23] Allergies/Adverse Reactions: Allergies Allergy/AdvReac Type Severity Reaction Status Date / Time fluticasone furoate Allergy Severe Shortness Verified 05/07/23 05:12 [From Trelegy Ellipta] of Breath umeclidinium Allergy Severe Shortness Verified 05/07/23 05:12 [From Trelegy Ellipta] of Breath vilanterol Allergy Severe Shortness Verified 05/07/23 05:12 [From Trelegy Ellipta] of Breath acetaminophen Allergy Intermediate Rash Verified 05/07/23 05:12 [From Darvocet-N] propoxyphene napsylate Allergy Intermediate Rash Verified 05/07/23 05:12 [From Darvocet-N] fexofenadine [From Elis-D] Allergy Verified 05/07/23 05:12 pseudoephedrine Allergy Verified 05/07/23 05:12 [From Elis-D] - Past Medical History Past Medical History: Yes Neurological History: No Pertinent History ENT History: No Pertinent History Cardiac History: No Pertinent History Respiratory History: COPD, Emphysema Endocrine Medical History: No Pertinent History Musculoskelatal History: Osteoporosis, Rheumatoid Arthritis, Other GI Medical History: No Pertinent History History: No Pertinent History Pyscho-Social History: Anxiety Reproductive Disorders: No Pertinent History Comment: 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 failure to thrive - Past Surgical History Past Surgical History: Yes Neuro Surgical History: No Pertinent History Cardiac History: No Pertinent History Respiratory Surgery: No Pertinent History GI Surgical History: No Pertinent History Genitourinary Surgical Hx: No Pertinent History Musculskeletal Surgical Hx: Orthopedic Surgery Female Surgical History: Section Other Surgical History: rt arm - Social History Smoking Status: Current every day smoker How long have you smoked: YRS Exposure to second hand smoke: No Alcohol: None Drug Use: none - Physical Exam Vital Signs: Vital Signs - 24 hr Temp Pulse Resp BP BP Pulse Ox 05/08/23 04:00 96.3 F 72 19 110/52 98 05/07/23 23:39 97.2 F 76 15 99/52 95 05/07/23 21:52 68 22 97 05/07/23 20:00 96.8 F 92 H 19 110/56 100 05/07/23 16:00 97.1 F 82 12 114/60 100 05/07/23 12:00 98 05/07/23 11:55 97.7 F 85 15 100/50 100 05/07/23 11:19 97.7 F 85 16 100/50 100 05/07/23 11:02 114/69 05/07/23 10:45 90 19 146/82 100 05/07/23 10:31 97.9 F 114 H 35 H 147/89 94 L 05/07/23 10:30 93 H 24 147/89 96 05/07/23 10:24 92 L 05/07/23 10:23 95 05/07/23 10:15 95 H 28 H 133/79 97 05/07/23 10:00 92 H 25 H 153/86 100 05/07/23 09:58 97.7 F 92 H 37 H 153/86 87 L 05/07/23 09:54 161/88 05/07/23 09:00 131/67 05/07/23 08:49 97.7 F 91 H 40 H 133/70 96 05/07/23 08:45 97.7 F 91 H 38 H 133/70 100 05/07/23 08:00 95 H 33 H 106/61 05/07/23 07:42 21 100 05/07/23 07:00 82 38 H 101/60 100 05/07/23 06:23 100 05/07/23 06:00 90 43 H 132/68 98 General Appearance: mild distress, thin Neurologic Exam: alert, cooperative Respiratory Exam: diminished breath sounds, wheezing Cardiovascular Exam: regular rate/rhythm Gastrointestinal/Abdomen Exam: soft Skin Exam: pale Wound Assessment: Skin/Wound Assessment Wound/Incision Assessment Start: 05/07/23 12:18 Text: Status: Active Freq: Q6H Protocol: Document 05/08/23 00:00 TC (Rec: 05/08/23 02:01 TC [id number]) Wound/Incision Assessment Right Posterior Heel Wound Assessment Shift Assessment Wound Type Pressure Ulcer Dressing Status Dry & Intact Primary Dressing Mepilex border Comment mepilex intact Left Lateral Dorsal Foot Wound Assessment Shift Assessment Wound Type Abrasion Drainage Amount None General Appearance Open to air,Reddened, Unapproximated Surrounding Tissue [place] Primary Dressing Mepilex border Comment has large dry scab on it Medial Coccyx Wound Assessment Shift Assessment Wound Type Pressure Ulcer Dressing Status Dry & Intact Drainage Amount None General Appearance Clean/Dry Wound Bed Greatest Portion Shiny Wound Bed Lesser Portion Pale [place] Surrounding Tissue [place] Primary Dressing Mepliex border Comment on bony coccyx prom Left Upper Medial Coccyx Wound Assessment Shift Assessment Wound Type Pressure Ulcer Wound Stage Stage III Dressing Status Dry & Intact Primary Dressing Mepilex border Comment dressing intact Right Medial Buttock Wound Assessment Shift Assessment Wound Type Pressure Ulcer Dressing Status Dry & Intact Drainage Description Serosanguineous Surrounding Tissue Weeping Primary Dressing Mepilex border Comment dressing intact Left Medial Buttock Wound Assessment Shift Assessment Wound Type Pressure Ulcer Drainage Amount Moderate Primary Dressing Mepilex border Wound Photo Photo Taken Yes Comment: pictures taken from ED and assessed there. Family doesn't wish patient to be bothered right now. She is here more for comfort measure Results - Labs Lab/Micro Results: Lab Results-Last 24 Hours 05/07/23 05/07/23 05/07/23 Range/Units 05:30 05:30 05:30 WBC (4.0-10.5) x10^3/uL RBC (4.1-5.4) x10^6/uL Hgb (12.0-16.0) g/dL Hct (35-47) % MCV (78-100) fL MCH (26-32) pg MCHC (32-36) g/dL RDW (11.5-14.0) % Plt Count (150-450) x10^3/uL MPV (7.5-11.0) fL Gran % (36.0-66.0) % Immature Gran % (Auto) (0.00-0.4) % Nucleat RBC Rel Count (0.00-0.1) % Eos # (Auto) (0-0.5) x10^3/uL Immature Gran # (Auto) (0.00-0.03) x10^3u/L Absolute Lymphs (auto) (1.0-4.6) x10^3/uL Absolute Monos (auto) (0.0-1.3) x10^3/uL Absolute Nucleated RBC (0.00-0.01) x10^3u/L Lymphocytes % (24.0-44.0) % Monocytes % (0.0-12.0) % Eosinophils % (0.00-5.0) % Basophils % (0.0-0.4) % Absolute Granulocytes (1.4-6.9) x10^3/uL Basophils # (0-0.4) x10^3/uL D-Dimer 0.27 (0.0-0.50) mg/L Puncture Site pCO2 (35-45) mmHg pO2 (75-100) mmHg Base Excess (-2.0-2.0) O2 Saturation (94-100) g/dF ABG pH (7.35-7.45) ABG HCO3 (22-28) ABG O2 Sat (Measured) (95-100) % Sukumar Test A-a Gradient a/A Ratio Hemoglobin Carboxyhemoglobin (0.0-6.9) % THgb Methemoglobin (1.4-1.5) % Potassium (3.5-5.1) Temperature C POC O2 Flow Rate % Sodium (137-145) mmol/L Chloride (98-107) mmol/L Carbon Dioxide (22-30) mmol/L Anion Gap (5-15) MEQ/L BUN (7-17) mg/dL Creatinine (0.52-1.04) mg/dL Estimated GFR ML/MIN Glucose (74-106) mg/dL Lactic Acid (0.4-2.0) Calcium (8.4-10.2) mg/dL Magnesium (1.6-2.3) mg/dL Total Bilirubin (0.2-1.3) mg/dL AST (14-36) U/L ALT (0-35) U/L Alkaline Phosphatase (38-126) U/L Ammonia (9-30) umol/L Troponin I < 0.012 (0.000-0.034) ng/mL NT-Pro-B Natriuret Pep 175 (<300) pg/mL Serum Total Protein (6.3-8.2) g/dL Albumin (3.5-5.0) g/dL Prealbumin (17.6-36.0) mg/dL Procalcitonin 0.085 H (0.030-0.080) ng/mL Urine Color (Yellow) Urine Appearance (Clear) Urine pH (4.6-8.0) Ur Specific [place] (1.005-1.030) Urine Protein (Negative) Urine Glucose (UA) (Negative) mg/dL Urine Ketones (Negative) Urine Blood (Negative) Urine Nitrite (Negative) Urine Bilirubin (Negative) Urine Urobilinogen (0.2) mg/dL Ur Leukocyte Esterase (Negative) U Hyaline Cast (Auto) (0-2) /LPF Urine Microscopic RBC (0-5) /HPF Urine Microscopic WBC (0-5) /HPF Ur Epithelial Cells (None Seen) /HPF Urine Bacteria (None Seen) /HPF Urine Culture Reflexed (NO) Influenza Type A Ag (NEGATIVE) Influenza Type B Ag (NEGATIVE) RSV (PCR) (NEGATIVE) SARS-CoV-2 (PCR) (NEGATIVE) 05/07/23 05/07/23 05/07/23 Range/Units 05:30 05:45 05:45 WBC (4.0-10.5) x10^3/uL RBC (4.1-5.4) x10^6/uL Hgb (12.0-16.0) g/dL Hct (35-47) % MCV (78-100) fL MCH (26-32) pg MCHC (32-36) g/dL RDW (11.5-14.0) % Plt Count (150-450) x10^3/uL MPV (7.5-11.0) fL Gran % (36.0-66.0) % Immature Gran % (Auto) (0.00-0.4) % Nucleat RBC Rel Count (0.00-0.1) % Eos # (Auto) (0-0.5) x10^3/uL Immature Gran # (Auto) (0.00-0.03) x10^3u/L Absolute Lymphs (auto) (1.0-4.6) x10^3/uL Absolute Monos (auto) (0.0-1.3) x10^3/uL Absolute Nucleated RBC (0.00-0.01) x10^3u/L Lymphocytes % (24.0-44.0) % Monocytes % (0.0-12.0) % Eosinophils % (0.00-5.0) % Basophils % (0.0-0.4) % Absolute Granulocytes (1.4-6.9) x10^3/uL Basophils # (0-0.4) x10^3/uL D-Dimer (0.0-0.50) mg/L Puncture Site RIGHT RADIAL pCO2 69 H* (35-45) mmHg pO2 152 H* (75-100) mmHg Base Excess 16.7 H (-2.0-2.0) O2 Saturation 98.4 (94-100) g/dF ABG pH 7.41 (7.35-7.45) ABG HCO3 43.7 H* (22-28) ABG O2 Sat (Measured) 100.0 (95-100) % Sukumar Test YES A-a Gradient 332 a/A Ratio 0.31 Hemoglobin 9.1 Carboxyhemoglobin 1.2 (0.0-6.9) % THgb Methemoglobin 0.4 L (1.4-1.5) % Potassium 3.7 (3.5-5.1) Temperature 37.0 C POC O2 Flow Rate 80 % Sodium (137-145) mmol/L Chloride (98-107) mmol/L Carbon Dioxide (22-30) mmol/L Anion Gap (5-15) MEQ/L BUN (7-17) mg/dL Creatinine (0.52-1.04) mg/dL Estimated GFR ML/MIN Glucose (74-106) mg/dL Lactic Acid 0.4 (0.4-2.0) Calcium (8.4-10.2) mg/dL Magnesium (1.6-2.3) mg/dL Total Bilirubin (0.2-1.3) mg/dL AST (14-36) U/L ALT (0-35) U/L Alkaline Phosphatase (38-126) U/L Ammonia (9-30) umol/L Troponin I (0.000-0.034) ng/mL NT-Pro-B Natriuret Pep (<300) pg/mL Serum Total Protein (6.3-8.2) g/dL Albumin (3.5-5.0) g/dL Prealbumin 18.33 (17.6-36.0) mg/dL Procalcitonin (0.030-0.080) ng/mL Urine Color (Yellow) Urine Appearance (Clear) Urine pH (4.6-8.0) Ur Specific [place] (1.005-1.030) Urine Protein (Negative) Urine Glucose (UA) (Negative) mg/dL Urine Ketones (Negative) Urine Blood (Negative) Urine Nitrite (Negative) Urine Bilirubin (Negative) Urine Urobilinogen (0.2) mg/dL Ur Leukocyte Esterase (Negative) U Hyaline Cast (Auto) (0-2) /LPF Urine Microscopic RBC (0-5) /HPF Urine Microscopic WBC (0-5) /HPF Ur Epithelial Cells (None Seen) /HPF Urine Bacteria (None Seen) /HPF Urine Culture Reflexed (NO) Influenza Type A Ag (NEGATIVE) Influenza Type B Ag (NEGATIVE) RSV (PCR) (NEGATIVE) SARS-CoV-2 (PCR) (NEGATIVE) 05/07/23 05/07/23 05/07/23 Range/Units 05:45 06:23 06:30 WBC (4.0-10.5) x10^3/uL RBC (4.1-5.4) x10^6/uL Hgb (12.0-16.0) g/dL Hct (35-47) % MCV (78-100) fL MCH (26-32) pg MCHC (32-36) g/dL RDW (11.5-14.0) % Plt Count (150-450) x10^3/uL MPV (7.5-11.0) fL Gran % (36.0-66.0) % Immature Gran % (Auto) (0.00-0.4) % Nucleat RBC Rel Count (0.00-0.1) % Eos # (Auto) (0-0.5) x10^3/uL Immature Gran # (Auto) (0.00-0.03) x10^3u/L Absolute Lymphs (auto) (1.0-4.6) x10^3/uL Absolute Monos (auto) (0.0-1.3) x10^3/uL Absolute Nucleated RBC (0.00-0.01) x10^3u/L Lymphocytes % (24.0-44.0) % Monocytes % (0.0-12.0) % Eosinophils % (0.00-5.0) % Basophils % (0.0-0.4) % Absolute Granulocytes (1.4-6.9) x10^3/uL Basophils # (0-0.4) x10^3/uL D-Dimer (0.0-0.50) mg/L Puncture Site pCO2 (35-45) mmHg pO2 (75-100) mmHg Base Excess (-2.0-2.0) O2 Saturation (94-100) g/dF ABG pH (7.35-7.45) ABG HCO3 (22-28) ABG O2 Sat (Measured) (95-100) % Sukumar Test A-a Gradient a/A Ratio Hemoglobin Carboxyhemoglobin (0.0-6.9) % THgb Methemoglobin (1.4-1.5) % Potassium (3.5-5.1) Temperature C POC O2 Flow Rate % Sodium (137-145) mmol/L Chloride (98-107) mmol/L Carbon Dioxide (22-30) mmol/L Anion Gap (5-15) MEQ/L BUN (7-17) mg/dL Creatinine (0.52-1.04) mg/dL Estimated GFR ML/MIN Glucose (74-106) mg/dL Lactic Acid (0.4-2.0) Calcium (8.4-10.2) mg/dL Magnesium 2.3 (1.6-2.3) mg/dL Total Bilirubin (0.2-1.3) mg/dL AST (14-36) U/L ALT (0-35) U/L Alkaline Phosphatase (38-126) U/L Ammonia (9-30) umol/L Troponin I (0.000-0.034) ng/mL NT-Pro-B Natriuret Pep (<300) pg/mL Serum Total Protein (6.3-8.2) g/dL Albumin (3.5-5.0) g/dL Prealbumin (17.6-36.0) mg/dL Procalcitonin (0.030-0.080) ng/mL Urine Color Red A (Yellow) Urine Appearance Cloudy A (Clear) Urine pH 7.0 (4.6-8.0) Ur Specific [place] 1.015 (1.005-1.030) Urine Protein 100 A (Negative) Urine Glucose (UA) Negative (Negative) mg/dL Urine Ketones Negative (Negative) Urine Blood Moderate A (Negative) Urine Nitrite Negative (Negative) Urine Bilirubin Negative (Negative) Urine Urobilinogen 0.2 (0.2) mg/dL Ur Leukocyte Esterase Moderate A (Negative) U Hyaline Cast (Auto) NONE SEEN (0-2) /LPF Urine Microscopic RBC >100 A (0-5) /HPF Urine Microscopic WBC >100 A (0-5) /HPF Ur Epithelial Cells None Seen (None Seen) /HPF Urine Bacteria Many A (None Seen) /HPF Urine Culture Reflexed ORDERED SEPARATELY (NO) Influenza Type A Ag NEGATIVE (NEGATIVE) Influenza Type B Ag NEGATIVE (NEGATIVE) RSV (PCR) NEGATIVE (NEGATIVE) SARS-CoV-2 (PCR) NEGATIVE (NEGATIVE) 05/07/23 05/08/23 05/08/23 Range/Units Unknown 04:38 04:38 WBC 9.3 (4.0-10.5) x10^3/uL RBC 2.75 L (4.1-5.4) x10^6/uL Hgb 8.7 L (12.0-16.0) g/dL Hct 28.4 L (35-47) % MCV 103.3 H (78-100) fL MCH 31.6 (26-32) pg MCHC 30.6 L (32-36) g/dL RDW 12.8 (11.5-14.0) % Plt Count 304 (150-450) x10^3/uL MPV 9.9 (7.5-11.0) fL Gran % 92.3 H (36.0-66.0) % Immature Gran % (Auto) 0.4 (0.00-0.4) % Nucleat RBC Rel Count 0.0 (0.00-0.1) % Eos # (Auto) 0 (0-0.5) x10^3/uL Immature Gran # (Auto) 0.04 H (0.00-0.03) x10^3u/L Absolute Lymphs (auto) 0.31 L (1.0-4.6) x10^3/uL Absolute Monos (auto) 0.36 (0.0-1.3) x10^3/uL Absolute Nucleated RBC 0.00 (0.00-0.01) x10^3u/L Lymphocytes % 3.3 L (24.0-44.0) % Monocytes % 3.9 (0.0-12.0) % Eosinophils % 0.0 (0.00-5.0) % Basophils % 0.1 (0.0-0.4) % Absolute Granulocytes 8.60 H (1.4-6.9) x10^3/uL Basophils # 0.01 (0-0.4) x10^3/uL D-Dimer (0.0-0.50) mg/L Puncture Site pCO2 (35-45) mmHg pO2 (75-100) mmHg Base Excess (-2.0-2.0) O2 Saturation (94-100) g/dF ABG pH (7.35-7.45) ABG HCO3 (22-28) ABG O2 Sat (Measured) (95-100) % Sukumar Test A-a Gradient a/A Ratio Hemoglobin Carboxyhemoglobin (0.0-6.9) % THgb Methemoglobin (1.4-1.5) % Potassium 4.4 (3.5-5.1) Temperature C POC O2 Flow Rate % Sodium 135 L (137-145) mmol/L Chloride 93 L (98-107) mmol/L Carbon Dioxide 36 H (22-30) mmol/L Anion Gap 10.4 (5-15) MEQ/L BUN 24 H (7-17) mg/dL Creatinine 0.32 L (0.52-1.04) mg/dL Estimated GFR > 60.0 ML/MIN Glucose 123 H (74-106) mg/dL Lactic Acid (0.4-2.0) Calcium 8.2 L (8.4-10.2) mg/dL Magnesium (1.6-2.3) mg/dL Total Bilirubin 0.30 (0.2-1.3) mg/dL AST 21 (14-36) U/L ALT 20 (0-35) U/L Alkaline Phosphatase 76 (38-126) U/L Ammonia 22 (9-30) umol/L Troponin I (0.000-0.034) ng/mL NT-Pro-B Natriuret Pep (<300) pg/mL Serum Total Protein 5.2 L (6.3-8.2) g/dL Albumin 2.9 L (3.5-5.0) g/dL Prealbumin (17.6-36.0) mg/dL Procalcitonin (0.030-0.080) ng/mL Urine Color (Yellow) Urine Appearance (Clear) Urine pH (4.6-8.0) Ur Specific [place] (1.005-1.030) Urine Protein (Negative) Urine Glucose (UA) (Negative) mg/dL Urine Ketones (Negative) Urine Blood (Negative) Urine Nitrite (Negative) Urine Bilirubin (Negative) Urine Urobilinogen (0.2) mg/dL Ur Leukocyte Esterase (Negative) U Hyaline Cast (Auto) (0-2) /LPF Urine Microscopic RBC (0-5) /HPF Urine Microscopic WBC (0-5) /HPF Ur Epithelial Cells (None Seen) /HPF Urine Bacteria (None Seen) /HPF Urine Culture Reflexed (NO) Influenza Type A Ag (NEGATIVE) Influenza Type B Ag (NEGATIVE) RSV (PCR) (NEGATIVE) SARS-CoV-2 (PCR) (NEGATIVE) - Radiology Impressions Radiology Exams & Impressions: Radiology Procedures Category Date Time Status CHEST 1 VIEW (PORTABLE) Stat Exams 05/07/23 05:40 Completed HEAD WITHOUT CONTRAST [CT] Stat Exams 05/07/23 06:33 Completed - Other Procedures and Tests Respiratory Therapy 05/07/23 06:20 BiPap/CPAP STAT Respiratory Therapy Assessment DAILY 05/07/23 11:19 Oxygen Oxymizer LPM 10 lpm 05/07/23 12:18 Smoking Cessation Education ONCE 05/07/23 23:01 Respiratory MDI BID Assessment/Plan (1) Tobacco abuse Current Visit: No Status: Acute Assessment & Plan: Conseled against use; continues to use daily Code(s): Z72.0 - TOBACCO USE (2) Weakness Current Visit: No Status: Acute Assessment & Plan: Profound weakness and cachexia, likely related to end stage COPD and severe decubitus ulcer Code(s): R53.1 - WEAKNESS (3) Hyponatremia Current Visit: No Status: Acute Assessment & Plan: Likely due to poor nutrition; will follow Code(s): E87.1 - HYPO-OSMOLALITY AND HYPONATREMIA (4) Respiratory distress Current Visit: Yes Status: Acute Assessment & Plan: I,proved with BiPAP; DNI; will treat COPD Code(s): R06.03 - ACUTE RESPIRATORY DISTRESS (5) COPD with exacerbation Current Visit: Yes Status: Acute Assessment & Plan: end stage COPD, solumedrol, breathing treatments, ABX for aspiration pneumonia; marielos convert to co,fort care likely after palliative discussion Code(s): J44.1 - CHRONIC OBSTRUCTIVE PULMONARY DISEASE W (ACUTE) EXACERBATION (6) Decubital ulcer Current Visit: Yes Status: Acute Qualifiers: Pressure injury location: sacral region Pressure injury stage: stage 4 Qualified Code(s): L89.154 - Pressure ulcer of sacral region, stage 4 Assessment & Plan: stage IV on back; wound care; comfort care measures Code(s): L89.90 - PRESSURE ULCER OF UNSPECIFIED SITE, UNSPECIFIED STAGE Telemedicine Encounter - Telemedicine Encounter Telemedicine Encounter: The entirety of this encounter was performed via Telemedicine"
[2023-05-08] MEDS: MORPHINE SULFATE 2 MG INJ IV PRN ×3 (08:05→16:17)
[2023-05-08] MEDS: Advair Hfa 115/21 Common canister IH SCH ×2 (08:06→19:38)
[2023-05-08] MEDS: Ativan 2 MG/1 ML VIAL IV PRN ×2 (08:06→15:53)
[2023-05-08 08:35] LABS: Slide Review 1 YES
[2023-05-08] MEDS ORDERED: ROCEPHIN 1 Gm-D5w 50 ml Bag** 1 G/50 ML IVPB IV SCH (10:00)
[2023-05-08] MEDS: Nicoderm CQ 21 MG TOP SCH (10:04)
[2023-05-08] MEDS: Sodium Chloride 0.9% 1000 ML 1,000 ML IV SCH (10:04)
[2023-05-08] MEDS: PROTONIX 40 MG IV IV SCH (10:04)
[2023-05-08] MEDS: Zithromax 500 MG/ 250 ML NaCl Premix 500 MG/250 ML IVPB IV SCH (12:00)
[2023-05-08] MEDS ORDERED: MORPHINE SULFATE 2 MG INJ IV PRN (18:09)
--- NOTE | 2023-05-08 20:00 | PCM.NOTE ---
Date and Time: 05/08/231947 Subjective Assessment: No acute events overnight. She is complaining of wanting sitting to eat, is unhappy that her diet has been held because of concerns for dysphagia and recurrent aspiration. She remains on 5 L Oxymizer, but denies any dyspnea. She complains of pain over her coccyx ulcers. Also complains that her mouth feels dry. We initially had a long discussion regarding goals of care and hospice. She agreed that she did not want to undergo CPR or to be intubated on a ventilator, although she was willing to use BiPAP if needed. Initially she seemed to understand her goals would be limited, as she has end-stage lung disease, limited mobility secondary to extreme pulmonary cachexia, and poor functional status. However, she told me she has "20 years of things to do", and that her grandchildren need her to her, and she could not anytime soon. That it would be up to God to take her when it was time. However, she was later able to meet with her daughter as well as the director case management and representatives from hospice. She had a better understanding of what hospice support would be, and an understanding that her ability to achieve her "20-year goals" would unfortunately be limited by her current functional status. She now wishes to pursue hospice, which she can do at her prior SNF, but will need a new authoriz ation. Objective Exam Wound Assessment: Skin/Wound Assessment Wound/Incision Assessment Start: 05/07/23 1 2:18 Text: Status: Active Freq: Q6H Protocol: Document 05/08/23 18:00 RUPALI (Rec: 05/08/23 18:50 [email or web address] [id number]) Wound/Incision Assessment Right Posterior Heel Wound Assessment Shift Assessment Wound Type Pressure Ulcer Wound Stage Stage III Dressing Status Dry & Intact Drainage Amount None General Appearance Reddened,Unapproximated Wound Bed Greatest Portion Red (Granulation) Wound Bed Lesser Portion Pale [employer] Surrounding Tissue [employer] Primary Dressing Mepilex border Comment mepilex intact Left Lateral Dorsal Foot Wound Assessment Shift Assessment Wound Type Abrasion Drainage Amount None General Appearance Open to air,Reddened, Unapproximated Wound Bed Greatest Portion Dusky Red Wound Bed Lesser Portion Red (Granulation) Surrounding Tissue Taut Comment has large dry scab on it Medial Coccyx Wound Assessment Shift Assessment Wound Type Pressure Ulcer Wound Stage Stage II Dressing Status Dry & Intact Drainage Amount None General Appearance Clean/Dry,Unapproximated Wound Bed Greatest Portion Shiny Wound Bed Lesser Portion Pale [employer] Surrounding Tissue [employer] Primary Dressing Mepliex border Comment on bony coccyx prom Left Upper Medial Coccyx Wound Assessment Shift Assessment Wound Type Pressure Ulcer Wound Stage Stage III Dressing Status Dry & Intact Drainage Amount Minimal Drainage Description Serosanguineous General Appearance Reddened,Unapproximated Wound Bed Greatest Portion Red (Granulation) Wound Bed Lesser Portion Pale [employer] Surrounding Tissue [employer] Primary Dressing Mepilex border Comment dressing intact Right Medial Buttock Wound Assessment Shift Assessment Wound Type Pressure Ulcer Wound Stage Stage IV Dressing Status Dry & Intact Drainage Amount Moderate Drainage Description Serosanguineous General Appearance Necrotic,Unapproximated Wound Bed Greatest Portion Dusky Red Wound Bed Lesser Portion Yellow (Slough) Surrounding Tissue [employer] Primary Dressing Mepilex border Comment dressing intact Left Medial Buttock Wound Assessment Shift Assessment Wound Type Pressure Ulcer Wound Stage Stage IV Drainage Amount Minimal Drainage Description Serosanguineous General Appearance Necrotic,Unapproximated Wound Bed Greatest Portion Dusky Red Wound Bed Lesser Portion Dusky Red,Yellow (Slough) Surrounding Tissue [employer] Primary Dressing Mepilex border Wound Photo Photo Taken Yes Comment: prev shifts Comments: GENERAL: Thin woman, sitting up in bed in no acute distress NEURO: Alert, oriented x3, normal affect CV: Regular rate and rhythm, no murmurs, no edema PULM: Clear to auscultation bilaterally, on 5 L oxygen ABD: Soft, nontender, nondistended OBJECTIVE DATA Vital Signs: Vital Signs - 24 hr Temp Pulse Resp BP Pulse Ox 05/08/23 19:40 95 H 16 97 05/08/23 19:18 97.9 F 89 17 115/56 91 L 05/08/23 16:00 96.8 F 91 H 18 107/52 94 L 05/08/23 11:40 97.4 F 92 H 18 122/57 99 05/08/23 09:06 94 H 24 98 05/08/23 07:29 96.9 F 87 14 102/52 93 L 05/08/23 04:00 96.3 F 72 19 110/52 98 05/07/23 23:39 97.2 F 76 15 99/52 95 05/07/23 21:52 68 22 97 05/07/23 20:00 96.8 F 92 H 19 110/56 100 Pain Assessment - Last Documented Pain Intensity 4 Pain Scale Used 0-10 Pain Scale Intake and Output: Intake & Output 05/06/23 05/07/23 05/08/23 05/09/23 11:59 11:59 11:59 11:59 Intake Total 1622 240 Output Total 100 350 Balance -100 1272 240 Weight 41 kg Lab Results: Lab Results-Last 24 Hours 05/08/23 05/08/23 Range/Units 04:38 04:38 WBC 9.3 (4.0-10.5) x10^3/uL RBC 2.75 L (4.1-5.4) x10^6/uL Hgb 8.7 L (12.0-16.0) g/dL Hct 28.4 L (35-47) % MCV 103.3 H (78-100) fL MCH 31.6 (26-32) pg MCHC 30.6 L (32-36) g/dL RDW 12.8 (11.5-14.0) % Plt Count 304 (150-450) x10^3/uL MPV 9.9 (7.5-11.0) fL Gran % 92.3 H (36.0-66.0) % Immature Gran % (Auto) 0.4 (0.00-0.4) % Nucleat RBC Rel Count 0.0 (0.00-0.1) % Eos # (Auto) 0 (0-0.5) x10^3/uL Immature Gran # (Auto) 0.04 H (0.00-0.03) x10^3u/L Absolute Lymphs (auto) 0.31 L (1.0-4.6) x10^3/uL Absolute Monos (auto) 0.36 (0.0-1.3) x10^3/uL Absolute Nucleated RBC 0.00 (0.00-0.01) x10^3u/L Lymphocytes % 3.3 L (24.0-44.0) % Monocytes % 3.9 (0.0-12.0) % Eosinophils % 0.0 (0.00-5.0) % Basophils % 0.1 (0.0-0.4) % Absolute Granulocytes 8.60 H (1.4-6.9) x10^3/uL Basophils # 0.01 (0-0.4) x10^3/uL Sodium 135 L (137-145) mmol/L Potassium 4.4 (3.5-5.1) mmol/L Chloride 93 L (98-107) mmol/L Carbon Dioxide 36 H (22-30) mmol/L Anion Gap 10.4 (5-15) MEQ/L BUN 24 H (7-17) mg/dL Creatinine 0.32 L (0.52-1.04) mg/dL Estimated GFR > 60.0 ML/MIN Glucose 123 H (74-106) mg/dL Calcium 8.2 L (8.4-10.2) mg/dL Total Bilirubin 0.30 (0.2-1.3) mg/dL AST 21 (14-36) U/L ALT 20 (0-35) U/L Alkaline Phosphatase 76 (38-126) U/L Serum Total Protein 5.2 L (6.3-8.2) g/dL Albumin 2.9 L (3.5-5.0) g/dL Slides for Path Review YES Urine culture with gram-positive cocci, ID and sensitivity pending Radiology Exams: Radiology Procedures Category Date Time Status CHEST 1 VIEW (PORTABLE) Stat Exams 05/07/23 05:40 Completed HEAD WITHOUT CONTRAST [CT] Stat Exams 05/07/23 06:33 Completed Multi-Disciplinary Progress Notes: Multi-Disciplinary Progress Notes 05/08/23 15:07 Case Management Note by Ksenia Gaviria INITIALLY THIS AM PATIENT REPORTED SHE WAS STILL WANTING TREATMENT "I STILL HAVE 20 YEARS LEFT, I'VE GOT GRANDKIDS THAT NEED ME". S/W DAUGHTER- SHE WAS NOTIFIED OF THIS. SHE REPORTS SHE S/W HER SIBLINGS. THEY FEEL IT IS TIME FOR PATIENT TO HAVE HOSPICE. DAUGHTER CAME IN TO TALK WITH PATIENT. WE HAD LONG DISCUSSION ABOUT HOSPICE. PATIENT AGREEABLE TO HOSPICE SERVICES AT [facility] AFTER IT WAS BETTER EXPLAINED TO HER. HER MAIN CONCERN IS BEING ABLE TO BE ON HER COMPUTER AT THE RETIREMENT. WE DISCUSSED HOSPICE PROVIDERS. SHE IS AWARE SHE HAS THE OPTION TO CHOOSE ANY COMPANY SHE WISHES. PATIENT REQUESTED TO TALK WITH [facility]. REFERRAL WAS CALLED AND FAXED TO [facility]. MICA HERE AT THIS TIME S/W PATIENT AND DAUGHTER. I S/W EARL AT [facility]- PATIENT CAN RETURN UNDER HER MEDICAID WITH [facility] BUT THEY NEED TO ESTABLISH A NEW CONTACT (WON'T BE DONE UNTIL ) Initialized on 05/08/23 15:07 - END OF NOTE Assessment/Plan (1) COPD with exacerbation Current Visit: Yes Status: Acute Assessment & Plan: 72-year-old with a history of COPD on home oxygen, chronic hypoxic and hypercapnic respiratory failure, hypertension, rheumatoid arthritis, and failure to thrive, here with acute on chronic hypoxic respiratory failure, and end- stage COPD. ## Acute on chronic hypoxic and hypercapnic respiratory failure, end-stage COPD patient with multiple signs of poor overall prognosis, including severe pulmonary cachexia. She has chronic CO2 retention that is compensated, with a PCO2 of 70. She has been weaned from her overnight BiPAP, but still continues to have a poor prognosis, currently requiring 5 L oxygen. She continues to be an active smoker. She is appropriate for hospice support, to which she is now agreeable. Hospice consult for SNF, likely plan for discharge tomorrow Continue Solu-Medrol, decrease to 60 mg IV BID Continue PRN albuterol DC continuous NS ## Dysphagia with recurrent aspiration patient was here last week with dysphagia and aspiration pneumonia. Repeat chest x-ray shows resolving left base infiltrate. DC Rocephin and azithromycin Start mechanical soft ground diet with honey thickened liquids per recommendations from speech therapy during last admission Consult speech therapy for repeat evaluation ## Hypertension her blood pressure has been well controlled despite not being on any of her home medications Continue holding home HCTZ 25 ## Chronic stable problems Cigarette dependence continue NicoDerm 21 mg patch GERD continue Protonix 40 mg daily Depression/anxiety restart home sertraline 100 mg daily CODE STATUS: DNR/DNI, confirmed today with patient Prophylaxis: Deferring in the setting of limited goals of care Code(s): J44.1 - CHRONIC OBSTRUCTIVE PULMONARY DISEASE W (ACUTE) EXACERBATION Telemedicine Encounter - Telemedicine Encounter Telemedicine Encounter: The entirety of this encounter was performed via Telemedicine"
[2023-05-09] MEDS ORDERED: solu-MEDROL ONE (01:30)
[2023-05-09] MEDS ORDERED: Sterile H2O 10 ml IJ ONE (01:33)
[2023-05-09] MEDS: solu-MEDROL 60 MG, Sterile H2O 10 ml 2 ML IV SCH ×4 (01:41→10:19)
[2023-05-09] MEDS: Ativan 2 MG/1 ML VIAL IV PRN ×4 (03:00→15:36)
[2023-05-09] MEDS: Advair Hfa 115/21 Common canister IH SCH (07:01)
[2023-05-09 07:02] VITALS: RESP 18
[2023-05-09] MEDS ORDERED: Protonix 40MG Tablet PO SCH (10:00)
[2023-05-09] MEDS ORDERED: ZOLOFT 50 MG TABLET PO SCH (10:00)
[2023-05-09] MEDS: Nicoderm CQ 21 MG TOP SCH (10:20)
[2023-05-09 12:08] VITALS: BP 125/63; PULSE 97; TEMP 97.1; O2SAT 97
--- NOTE | 2023-05-09 15:13 | PCM.DS ---
Discharge Summary Date of Admission: 05/07/23 11:08 Date of Discharge: 05/09/23 Admitting Physician: ARIANNA XAVIER MD Consults: Consults on Case 05/07/23 11:19 Consult Pulmonology ROUTINE Primary Care Provider: HELDER KO Allergies Allergies fluticasone furoate [From Trelegy Ellipta] Allergy (Severe, Verified 05/07/23 05:12) Shortness of Breath umeclidinium [From Trelegy Ellipta] Allergy (Severe, Verified 05/07/23 05:12) Shortness of Breath vilanterol [From Trelegy Ellipta] Allergy (Severe, Verified 05/07/23 05:12) Shortness of Breath acetaminophen [From Darvocet-N] Allergy (Intermediate, Verified 05/07/23 05:12) Rash propoxyphene napsylate [From Darvocet-N] Allergy (Intermediate, Verified 05/07/23 05:12) Rash fexofenadine [From Elis-D] Allergy (Verified 05/07/23 05:12) pseudoephedrine [From Elis-D] Allergy (Verified 05/07/23 05:12) Hospital Summary - Hospital Course Hospital Course: 72-year-old woman with a history of end-stage COPD, chronic hypoxic and hypercapnic respiratory failure, hypertension, rheumatoid arthritis, would recently be admitted for a severe COPD exacerbation and failure to thrive and discharged to SNF, was [facility] from [facility] secondary to worsening hypoxia, down to 70%. Patient also has severe dysphagia with frequent aspiration despite modified diet, as well as continued tobacco abuse. On arrival, she was initially placed on BiPAP, and became to be more alert. ABG showed compensated chronic hypercarbia. She was weaned back down to 5 L nasal cannula, but she became very upset at her diet restrictions because of her recurrent aspiration. We had multiple hurdles with patient, case management, and her daughter. Patient change CODE STATUS to DNR/DNI, and then eventually decided that she wanted to move to hospice care and comfort measures only. She wants to be able to eat which she can, understanding that her lungs are not going to recover and she will likely have recurrent aspiration. We arranged for her to return back to [facility] facility, which setting up a contract with [facility] for hospice services while she is there. Patient was found to have acute cystitis with Enterococcus faecalis, and she chose to continue a course of antibiotics for that. She will be discharged on a 5-day course of nitrofurantoin BID. Greater than 30 minutes spent arranging discharge. - Vitals & Intake/Output Vital Signs: Vital Signs Temperature 97.1 F 05/09/23 12:00 Pulse Rate 97 H 05/09/23 12:00 Respiratory Rate 18 05/09/23 12:00 Blood Pressure 125/63 05/09/23 12:00 O2 Sat by Pulse Oximetry 97 05/09/23 12:00 Intake & Output: Intake & Output 05/07/23 05/08/23 05/09/23 05/10/23 11:59 11:59 11:59 11:59 Intake Total 1622 720 240 Output Total 100 350 350 Balance -100 1272 370 240 Weight 41 kg - Lab Result Diagrams: 05/08/23 04:38 05/08/23 04:38 Micro Results-Entire Visit: Microbiology 05/07/23 06:23 Urine Culture - Final Catherized Enterococcus Faecalis 05/07/23 05:30 Blood Culture - Preliminary Blood 05/07/23 05:13 Blood Culture - Preliminary Blood - Radiology Exams Ordered Rad Exams-Entire Visit: Chest x-ray clearing left base infiltrate/atelectasis/effusion with mild residual. Remaining lungs clear but with evidence of chronic COPD and calcified granulomas. - Procedures and Test Procedures and Tests throughout Hospitalization: Therapy Orders & Screens 05/07/23 06:20 BiPap/CPAP STAT Comment: Respiratory Therapy Assessment DAILY Comment: 05/07/23 11:19 Oxygen Oxymizer LPM 10 lpm Comment: Respiratory Therapy Consult ROUTINE Comment: Reason For Exam: 05/07/23 12:18 PT Screen per Nursing Assess ONCE Comment: Protocol Order Physician Instructions: Greater than 3 points order PT Admission Screenin Reason For Exam: Triggered on Admission Diagnosis: COPDE Open Wound/Cellutlitis/Pressure Ulcers: Yes Acute Fx/ORIF/Change in wt bearing status: No Severe MUSCULOSKELETAL pain: No ADL Dysfunction: Yes Acute CVA w/Hemiparesis/Hemiplegia: No Decreased Functional Mobility/Strength: Yes Sprain/Strain: No Acute Post-op Mobility Dysfunction: No Total Points: 9 RT Screen per Nursing Assess ONCE Comment: Protocol Order Physician Instructions: Greater than 3 points order RT Admission Screen Reason For Exam: Triggered on Admission Diagnosis: COPDE Diagnosis: COPDE Pneumonia: Yes Home O2: Yes Asthma: No CHF: No Home CPAP/BIPAP: Yes Home Nebs/MDI: Yes Total Points: 18 Smoking Cessation Education ONCE Comment: Diagnosis: COPDE Smoking Status: Current every day smoker How long have you smoked: YRS Have you smoked in the past 12 months: Yes Approximately how many cigarettes per day: 14 Do you dip or chew tobacco: No If,Former Smoker,when did you quit: smoking since 19[address] ST Screen per Nursing Assess ONCE Comment: Protocol Order Physician Instructions: Greater than [address] Admission Screening Reason For Exam: Triggered on Admission Diagnosis: COPDE CVA/Dyshpagia/Aphasia: No Cognitive Deficits: No Dehydration/Nutrition Deficit: Yes Reflux: No Oral-Motor Difficulties: No Pneumonia: Yes Prison Resident: Yes Total Points: 15 05/07/23 23:01 Respiratory MDI BID Comment: Diagnosis: COPDE 05/08/23 11:01 ST Eval & Treat (MD Order) .as ordered Comment: Physician Instructions: Reason For Exam: Evaluate: Yes Treat: Yes Reason for Eval: dysphagia Diagnosis: COPDE Discharge Exam Wound Assessment: Skin/Wound Assessment Wound/Incision Assessment Start: 05/07/23 12:18 Text: Status: Active Freq: Q6H Protocol: Document 05/09/23 12:00 RUPALI (Rec: 05/09/23 12:39 [email or web address] [id number]) Wound/Incision Assessment Right Posterior Heel Wound Assessment Shift Assessment Wound Type Abrasion Wound Stage Unstageable Dressing Status Dry & Intact Drainage Amount None Drainage Odor None/Absent General Appearance Clean/Dry Wound Bed Greatest Portion Red (Granulation) Wound Bed Lesser Portion Red (Granulation) Surrounding Tissue [employer] Primary Dressing Mepilex border Left Lateral Dorsal Foot Wound Assessment Shift Assessment Wound Type Abrasion Wound Stage Unstageable Dressing Status Dry & Intact Drainage Amount None Drainage Odor None/Absent General Appearance Open to air Wound Bed Greatest Portion Red (Granulation) Wound Bed Lesser Portion Red (Granulation) Surrounding Tissue [employer] Medial Coccyx Wound Assessment Shift Assessment Wound Type Pressure Ulcer Wound Stage Stage II Dressing Status Dry & Intact Drainage Amount None Drainage Odor None/Absent General Appearance Clean/Dry Wound Bed Greatest Portion Red (Granulation) Wound Bed Lesser Portion Red (Granulation) Surrounding Tissue [employer] Primary Dressing Mepilex border Left Upper Medial Coccyx Wound Assessment Shift Assessment Wound Type Pressure Ulcer Wound Stage Stage II Dressing Status Dry & Intact Drainage Amount None Drainage Odor None/Absent General Appearance Unapproximated Surrounding Tissue [employer] Primary Dressing mepilex border Right Medial Buttock Wound Assessment Shift Assessment Wound Type Pressure Ulcer Wound Stage Stage IV Dressing Status Dry & Intact Drainage Amount Minimal Drainage Description Serosanguineous Drainage Odor None/Absent General Appearance Clean/Dry,Draining Wound Bed Greatest Portion Red (Granulation) Wound Bed Lesser Portion Red (Granulation) Surrounding Tissue [employer] Primary Dressing Mepliex border Left Medial Buttock Wound Type Pressure Ulcer Wound Stage Stage IV Dressing Status Dry & Intact Drainage Amount None Drainage Odor None/Absent Wound Bed Greatest Portion Red (Granulation) Wound Bed Lesser Portion Red (Granulation) Surrounding Tissue [employer] Primary Dressing Mepilex border Wound Photo Photo Taken Yes Comment: prev shifts Comments: GENERAL: Thin woman, sitting up in bed in no acute distress NEURO: Alert, oriented x3, normal affect CV: Regular rate and rhythm, no murmurs, no edema PULM: Clear to auscultation bilaterally, on 6L oxygen ABD: Soft, nontender, nondistended Final Diagnosis/Problem List - Final Discharge Diagnosis/Problem (1) COPD with exacerbation Current Visit: Yes Status: Acute Code(s): J44.1 - CHRONIC OBSTRUCTIVE PULMONARY DISEASE W (ACUTE) EXACERBATION (2) Acute cystitis Current Visit: Yes Status: Acute Code(s): N30.00 - ACUTE CYSTITIS WITHOUT HEMATURIA (3) Pulmonary cachexia due to COPD Current Visit: Yes Status: Acute Code(s): J44.9 - CHRONIC OBSTRUCTIVE PULMONARY DISEASE, UNSPECIFIED; R64 - [place] Telemedicine Encounter - Telemedicine Encounter Telemedicine Encounter: The entirety of this encounter was performed via Telemedicine" - Discharge Disposition: DC TO ANY "OTHER" RESIDENTIAL Condition: Fair Prescriptions: New Nitrofurantoin Macrocrystal [Nitrofurantoin] 100 mg PO BID #10 cap Continue Albuterol Sulfate Mdi [ALBUTEROL/Proair Hfa MDI] 2 puff IH Q4HPRN PRN PRN Reason: sob Tiotropium [place] Inhaler [Spiriva 18 Mcg/Cap Inhaler] 2 puff IH DAILY Hydrochlorothiazide 25 mg [hydroDIURIL 25 MG] 25 mg PO DAILY Senna 8.6 mg [Senokot 8.6 mg] 8.6 mg PO HS Potassium Chloride 10 meq PO DAILY L. Acidophilus/L.bulgaricus [Lactobacillus Tablet] 1 each PO DAILY 10 Days #10 tablet clonazePAM [Clonazepam] 2 mg PO Q4HWA PRN PRN Reason: Anxiety PANTOPRAZOLE 40 mg Tablet [Protonix 40MG Tablet] 40 mg PO DAILY Magnesium Hydroxide 30 ml [Milk of Magnesia 30 ml] 30 ml PO DAILY PRN PRN PRN Reason: Constipation Lidocaine [Lidocore] 1 patch TP DAILY Hydrocortisone 1% Cream [Cortisone 1% Cream] 1 each TOP QIDPRN PRN PRN Reason: pruritis guaiFENesin [Mucus ER] 1,200 mg PO BID Polyethylene Glycol 3350 17 gm [Miralax Powder 17GM PACKET] 17 gm PO DAILY PRN PRN PRN Reason: Constipation Sodium Phosphate,Rooks-Dibasic [Fleet Enema] 1 each ND DAILY PRN PRN PRN Reason: Constipation Bisacodyl 10 mg [Dulcolax 10 MG SUPP] 10 mg ND DAILY PRN PRN PRN Reason: Constipation predniSONE [Prednisone] 20 mg PO DAILY Nicotine 21 mg [Nicoderm CQ 21 MG] 21 mg TP DAILY Sertraline HCl [Zoloft] 100 mg PO DAILY Additional Instructions: RESIDENTIAL ORDERS: COMFORT MEASURES ONLY REGULAR DIET PATIENT PLEASES [facility] TO FOLLOW AT [facility] ONCE CONTRACT IN PLACE SEE ATTACHED MED LIST Follow up with: PORSCHE KO [ACTIVE STAFF] - HELDER KO [Primary Care Provider] -
== END 2023-05-09 16:27 ==
LOC: ED 05:02 → MED SURG 11:08
PROVIDERS: ADMIT Internal Medicine; ATTEND Internal Medicine
DX: J44.1 Chronic obstructive pulmonary disease with (acute) exacerbation (principal); N30.00 Acute cystitis without hematuria; J44.9 Chronic obstructive pulmonary disease, unspecified; L89.154 Pressure ulcer of sacral region, stage 4; J96.11 Chronic respiratory failure with hypoxia; I10 Essential (primary) hypertension; M06.9 Rheumatoid arthritis, unspecified; E87.1 Hypo-osmolality and hyponatremia; S90.811A Abrasion, right foot, initial encounter; S90.812A Abrasion, left foot, initial encounter; R53.1 Weakness; L89.152 Pressure ulcer of sacral region, stage 2; Z72.0 Tobacco use; Z79.899 Other long term (current) drug therapy; Z20.828 Contact with and (suspected) exposure to other viral communicable diseases
CPT/HCPCS: 0241U; 36000; 36415; 36600; 51702; 70450; 71045; 80053; 81001; 82140; 82375; 82803; 83605; 83735; 83880; 84134; 84145; 84484; 85025; 85379; 87040; 87077; 87086; 87186; 93005; 93041; 94002; 94003; 94640; 94760; 96374; 96375; 96376; 99285; 99291; G0378; J0456; J0696; J1956; J2060; J2270; J2930; Q3014; A9270-GY